=== PATIENT | female | born 1950 | race Caucasian/White ===

== ENCOUNTER 2018-12-12 11:00 | Inpatient (IN) | payer MEDICARE, OTHER ==
[~2018-12-12] VITALS: Ht 149.9 cm; Wt 66.9 kg
[2018-12-12 11:00] VITALS: BP 157/63
[~2018-12-12 11:00] MED LIST: ACET-2267 PO; ALBU5SOL6 NEB; ALEN70TA5 PO; ATOR10TA66 PO; BUDE10.2 INH; CALC-654 PO; CLON0.5T13 PO; HYDR-3820 PO; IPRA0.2S51 NEB; IPRA4AER INH; LISI-552 PO; LISI40TA PO; MAGNESIUM CITRATE 300 ML BTL PO NR; MELO15TA39 PO; MONT10TA24 PO; OMEP40CA36 PO; ONDA4TAB10 PO; TIZA4TAB3 PO; VENL150C98 PO
--- NOTE | 2018-12-12 11:00 | NUR ---
Admitted to room , with an admitting diagnosis of post kyphoplasty/impaired mobility , on 12-12-18 from [facility] , accompanied by .INOCENTE JOHNS introduced to surroundings, call light, bed controls, phone, TV, temperature control, lights, meal times, smoking policy, visitor policy, side rail policy, bathrooms and showers. Patient Rights given to patient in the handbook.INOCENTE JOHNS verbalizes understanding that [facility] is not responsible for the loss or damage to any personal effects or valuables that are kept in the patients posession during their hospitalization. The following Patient Care Plans were discussed with the pt: Discharge Planning, ,, alteration in comfort and skin integrity. INOCENTE JOHNS verbalizes understanding of Interdisciplinary Patient Education. Patient and/or family were informed about the Rapid Response Team and its purpose. Patient received Patient Rights Booklet, which includes Privacy Act Statement and Data Collection Information Summary.
[2018-12-12] MEDS ORDERED: BISACODYL 10 MG SUPP (DULCOLAX) PR PRN (11:45)
[2018-12-12] MEDS ORDERED: PROMETHAZINE 25 MG (PHENERGAN) TAB PO PRN (11:45)
[2018-12-12] MEDS ORDERED: HYDROmorphone 2 MG/ML VIAL (DILAUDID) IV PRN (11:45)
[2018-12-12] MEDS ORDERED: CATHETER FLUSH 10 ML SYR IV PRN (11:45)
[2018-12-12] MEDS ORDERED: ONDANSETRON 4 MG/2 ML (SDV) Z0FRAN IV PRN (11:45)
[2018-12-12] MEDS ORDERED: hydrALAZINE (APESOLINE) 20 MG/ML VIAL IV PRN (11:45)
[2018-12-12] MEDS ORDERED: ONDANSETRON 4 MG (ZOFRAN) ORAL DISSOLVE TAB PO PRN (11:45)
--- OUTSIDE RECORDS SUMMARY | 2018-12-12 11:52 | XMS REPORT | Continuity of Care Document ---
Author Organization Unknown Address Unknown Allergies Active Description Code Type Severity Reaction Onset Reported/Identified Relationship to Patient Clinical Status Yes adhesive tape ##NOMEN##,AL1,ceStruct,allergy,1237,[id number] Unknown N/A N/A Yes Latex ##NOMEN##,AL1,ceStruct,allergy,[id number] Unknown N/A N/A Medications There is no data. Problems There is no data. Procedures There is no data. Results There is no data. Encounters ACCT No. Visit Date/Time Discharge Status Pt. Type Provider Facility Loc./Unit Complaint [id number] 11/12/2018 15:04:40 11/12/2018 23:59:59 [facility] Outpatient [facility] Fel[facility] [id number] 01/13/2018 08:00:00 01/13/2018 23:59:59 [facility] Outpatient [facility] Feliz [facility] [id number] 11/12/2018 15:40:48 Document Registration
--- NOTE | 2018-12-12 13:19 | NUR ---
REVIEWED MED REC IT WAS REPORTED UPON ADMISSION TO ICU. NO CHANGES WERE MADE TO THE MED REC WHEN THE PATIENT DISCHARGED TO REHAB.
--- NOTE | 2018-12-12 14:25 | Occupational Therapy Eval ---
OT Evaluation-General/PLF Medical Diagnosis Admission Date Dec 12, 2018 at 11:00 Medical Diagnosis: T8 Compression Onset Date: Dec 04, 2018 Therapy Diagnosis Therapy Diagnosis: decreased self care skills Height/Weight Height (Feet): 4 Height (Inches): 11.00 Weight (Pounds): 162 Weight (Ounces): 7.0 Referral Physician: Vanna Medical History Pertinent Medical History: Arthritis, COPD, GERD, HTN, Smoking Additional Medical History Osteoporosis, anxiety Current History Pt s/p T8-9 laminectomy/partial corpectomy, T5-11 PSIF/T4 kyphoplasty. Reviewed History: Yes Social History Home: Single Level Current Living Status: Spouse Entry Into Home: Stairs With Railing Steps Into Home: 3 ADL-Prior Level of Function Therapy Code Descriptions/Definitions Functional Reed Measure: 0=Not Assessed/NA 4=Minimal Assistance 1=Total Assistance 5=Supervision or Setup 2=Maximal Assistance 6=Modified Reed 3=Moderate Assistance 7=Complete Reed Therapy Quality Codes: 6 Independent with activity with or without an assistive device 5 Patient requires set up or clean up by helper. Patient completes activity by themselves 4 Supervision or touching assist (CGA). Gary provide cues , steadying assist 3 The helper provides less than half the effort to complete the activity 2 The helper provides more than half the effort to complete the activity 1 Dependent. The helper does all the effort to complete an activity 7 Patient refused to complete or attempt activity 9 The patient did not perform the activity before the current illness or injury 88 Not attempted due to Medical conditions or safety concerns Functional Abilities and Goals: Independent: Patient completed the activities by him/herself, with or without an assistive device, with no assistance from a helper. Needed Some Help: Patient needed partial assistance from another person to complete activities. Dependent: A helper completed the activities for the patient. Unknown: Not Applicable: ADL PLOF Comments Pt states for the last few weeks prior to admission her family was assisting as needed. Was using cane and then walker for mobility. Family was doing the cooking and housework. Self Care: Needed Some Help DME/Equipment: Bath Chair DME/Equipment Comments Pt states they are having an walk in shower installed. Drive Self: No OT Current Status Subjective Pt in bed, agrees to therapy with encouragement. Pt reports 6/10 pain. Mental Status/Objective Patient Orientation: Person, Place, Situation Attachments: Drains, Cortés Catheter Current Glasses/Contacts: Yes Dentures/Partials: Yes (partials) Hand Dominance: Right Upper Extremity ROM Decreased right shoulder secondary to pain. Pt states she fell and hit her shoulder. Left UE grossly WFL Upper Extremity Coordination Intact Upper Extremity Strength Did not formally assess secondary to pain and recent back surgery. Generalized weakness. ADL-Treatment ADL-Current Pt participated in UE assessment while in bed. Pt states she is fatigued and doesn't know if she can do 3 hours of therapy. Education provided regarding role of OT and plan of care. States understanding. Pt completed grooming tasks while in bed. Pt brushed teeth, washed face, and combed hair with SBA and increased time. Pt requests to remain in bed at this time. Pt resting with needs met and family present after session. Eating (FIM): 5 (Set up by report) Eating (QC): 5 Grooming (FIM): 5 Oral Hygiene (QC): 4 Education OT Patient Education: Rehab process Teaching Recipient: Patient Teaching Methods: Discussion Response to Teaching: Verbalize Understanding OT Short Term Goals Short Term Goals Time Frame: Dec 26, 2018 Bathing(FIM): 4 Lower Body Dressing(FIM): 3 Toileting(FIM): 3 Toilet/Commode Transfer(FIM): 4 Additional Short Term Goals: 1-Demonstrate ADL Tasks, 2-Verbalize Understanding, 3-ImproveStrength/Re 1=Demonstrate adherence to instructed precautions during ADL tasks. 2=Patient will verbalize/demonstrate understanding of assistive devices/modifications for ADL. 3=Patient will improve strength/tolerance for activity to enable patient to perform ADL's. OT Mcfp Goals Mcfp Goals Time Frame: Jan 09, 2019 Eating (FIM): 6 Eating (QC): 6 Groomin Oral Hygiene (QC): 6 Bathing(FIM): 5 Shower/Bathe Self (QC): 5 Upper Body Dressing(FIM): 6 Upper Body Dressing (QC): 6 Lower Body Dressing(FIM): 5 Lower Body Dressing (QC): 5 On/Off Footwear (QC): 5 Toileting(FIM): 5 Toileting Hygiene (QC): 5 Toilet/Commode Transfer(FIM): 6 Toilet/Commode Transfer (QC): 6 Shower Transfer(FIM): 5 Additional Goals: 1-Demonstrate ADL Tasks, 2-Verbalize Understanding, 3-ImproveStrength/Re 1=Demonstrate adherence to instructed precautions during ADL tasks. 2=Patient will verbalize/demonstrate understanding of assistive devices/modifications for ADL. 3=Patient will improve strength/tolerance for activity to enable patient to perform ADL's. Pt to benefit from skilled OT intervention to increase functional independence and allow safe discharge home. OT Education/Plan Problem List/Assessment Assessment: Decreased Activ Tolerance, Decreased UE Strength, Dependent Transfers, Impaired I ADL's, Impaired Self-Care Skills Pt s/p spinal surgery with decreased mobility, strength, activity tolerance, and ADL functioning. Pt to benefit from skilled OT intervention for ADL training, transfers, strengthening, and home safety education to increase functional independence and allow safe discharge home. Discharge Recommendations Plan/Recommendations: Continue POC Treatment Plan/Plan of Care Treatment,Training & Education: Yes Patient would benefit from OT for education, treatment and training to promote independence in ADL's, mobility, safety and/or upper extremity function for ADL's. Plan of Care: ADL Retraining, Functional Mobility, Group Exercise/Act as Ind, UE Funct Exercise/Act Treatment Duration: Jan 09, 2019 Frequency: At least 5 of 7 days/Wk (IRF) Estimated Hrs Per Day: 1.5 hours per day Agreement: Yes Rehab Potential: Fair Time/GCodes Start Time: 11:05 Stop Time: 11:50 Total Time Billed (hr/min): 45 Billed Treatment Time 1 visit, EVM(30minutes), ADL(15minutes) DEBRA TORRES OT Dec 12, 2018 14:25
--- NOTE | 2018-12-12 14:25 | Physical Therapy Evaluation ---
PT Evaluation-General Medical Diagnosis Admission Date Dec 12, 2018 at 11:00 Medical Diagnosis: T-8 compression Onset Date: Dec 03, 2018 Therapy Diagnosis Therapy Diagnosis: impaired mobility, strength, endurance, balance, coordination Height/Weight Height (Feet): 4 Height (Inches): 11.00 Weight (Pounds): 162 Weight (Ounces): 7.0 Referral Physician: Ayla Prabhakar DO Reason for Referral: Evaluation/Treatment Medical History Pertinent Medical History: Arthritis, COPD, GERD, HTN, Smoking Additional Medical History failed kyphoplasty with spinal involvement Reviewed History: Yes Social History Home: Single Level Current Living Status: Spouse Entry Into Home: Stairs With Railing PT Steps Into Home: 3 Prior/Core FIM Prior Level of Function Therapy Code Descriptions/Definitions Functional [place] Measure: 0=Not Assessed/NA 4=Minimal Assistance 1=Total Assistance 5=Supervision or Setup 2=Maximal Assistance 6=Modified [place] 3=Moderate Assistance 7=Complete [place] Therapy Quality Codes: 6 Independent with activity with or without an assistive device 5 Patient requires set up or clean up by helper. Patient completes activity by themselves 4 Supervision or touching assist (CGA). [place] provide cues , steadying assist 3 The helper provides less than half the effort to complete the activity 2 The helper provides more than half the effort to complete the activity 1 Dependent. The helper does all the effort to complete an activity 7 Patient refused to complete or attempt activity 9 The patient did not perform the activity before the current illness or injury 88 Not attempted due to Medical conditions or safety concerns Functional Abilities and Goals: Independent: Patient completed the activities by him/herself, with or without an assistive device, with no assistance from a helper. Needed Some Help: Patient needed partial assistance from another person to complete activities. Dependent: A helper completed the activities for the patient. Unknown: Not Applicable: Bed Mobility: 5 Transfers (B,C,W/C) (FIM): 4 Gait: 1 Stairs: 1 Prior Devices Use: Walker PT Evaluation-Current Subjective Patient in bed pre tx, agrees to PT, has 5/10 pain in her back. Will be co- treating with OT after eval due to impaired strength, balance, LE poor coordination, coordination of UE and LE during movement, pain. Pt/Family Goals to be independent at home Objective Patient Orientation: Person, Place, Situation Attachments: Drains, Cortés Catheter back brace ROM/Strength ROM Lower Extremities WNL Strenght Lower Extremities 3+/5 gross bilateral lower extremities Integumentary/Posture Bladder Incontinence: Cortés Cath Neuromuscular (Tone, Coordination, Reflexes) decreased coordination in both legs observed during ambulation Sensory Vision: Wears Glasses Hearing: Functional Sensation Right Lower Extremit: Impaired Sensation Left Lower Extremity: Impaired Transfers Therapy Code Descriptions/Definitions Functional [place] Measure: 0=Not Assessed/NA 4=Minimal Assistance 1=Total Assistance 5=Supervision or Setup 2=Maximal Assistance 6=Modified [place] 3=Moderate Assistance 7=Complete [place] Therapy Quality Codes: 6 Independent with activity with or without an assistive device 5 Patient requires set up or clean up by helper. Patient completes activity by themselves 4 Supervision or touching assist (CGA). [place] provide cues , steadying assist 3 The helper provides less than half the effort to complete the activity 2 The helper provides more than half the effort to complete the activity 1 Dependent. The helper does all the effort to complete an activity 7 Patient refused to complete or attempt activity 9 The patient did not perform the activity before the current illness or injury 88 Not attempted due to Medical conditions or safety concerns Transfers (B, C, W/C) (FIM): 3 Scootin Rollin Roll Left to Right (QC): 3 Supine to/from Sit: 4 Sit to/from Stand: 3 bed t/f WC(FIM only if WC use): 2 Sit to Lying (QC): 3 Lying to Sitting/Side of Bed(Q: 3 Sit to Stand (QC): 2 Chair/Zcz-fh-Gyaxb Xfer(QC): 2 Car Transfer (QC): 2 Patient performs bed mobility with min assist, supine <-> sit with min assist, sit <-> stand with mod assist, transfers with mod assist, car transfers mod assist. Patient needs assist with balance during sit to stand and transfers, cues for hand placement and positioning. Gait Does the Patient Walk?: Yes Mode of Locomotion: Walk Anticipated Mode of Locomotion: Walk Gait (FIM): 1 Distance: 8'x2 Gait Level of Assist: 3 Gait Assistive Device: Parallel Bars Comments/Gait Description Patient ambulated 8' in the parallel bars and 8' from a recliner to the toilet using a rolling walker with mod assist. Her steps are uncoordinated and needs cues for taking slow, short steps. Stairs If not tested on admit;explain No stairs attempted at this time due to assist needed during ambulation and impaired balance and coordination. Balance Sitting Static: Normal Sitting Dynamic: Normal Standing Static: Poor Standing Dynamic: Poor Treatment Patient also bathed in recliner and got dressed and toileted. Assessment/Needs Patient has impaired mobility, strength, endurance, balance, coordination. She is a high fall risk. She has uncoordinated steps during ambulation. Rehab Potential: Fair PT Short Term Goals Short Term Goals Time Frame: Dec 19, 2018 Transfers (B,C,W/C) (FIM): 4 Gait (FIM): 1 Gait Distance Comment: 20' Gait Level of Assist: 4 Gait Assistive Device: FWW PT Penitentiary Goals Chief Environmental Commitment Officer Goals PT Chief Environmental Commitment Officer Goals Time Frame: Jan 02, 2019 Transfers (B,C,W/C) (FIM): 5 Sit to Lying (QC): 6 Lying-Sitting on Side/Bed(QC): 6 Sit to Stand (QC): 4 Rollin Roll Left to Right (QC): 6 Chair/[id number]-Jvxpq Xfer(QC): 4 Car Transfer (QC): 4 Gait (FIM): 5 Distance: 150' Walk 10 feet (QC): 4 Walk 10ft-Uneven Surface(QC): 4 Walk 50ft with 2 Turns (QC): 4 Walk 150 ft (QC): 4 Gait Level of Assist: 5 Gait Assistive Device: FWW Stairs (FIM): 2 # of Steps: 4 1 Step (curb) (QC): 4 4 Steps (QC): 4 Stairs Level Of Assist: 4 PT Plan Problem List Problem List: Activity Tolerance, Functional Strength, Safety, Balance, Gait, Transfer, Bed Mobility, ROM Treatment/Plan Treatment Plan: Continue Plan of Care Treatment Plan: Bed Mobility, Concurrent Therapy, Education, Functional Activity Re, Functional Strength, Group Therapy, Gait, Safety, Therapeutic Exercise, Transfers Treatment Duration: Jan 02, 2019 Frequency: At least 5 of 7 days/Wk (IRF) Estimated Hrs Per Day: 1.5 hours per day Patient and/or Family Agrees t: Yes Safety Risks/Education Patient Education: Gait Training, Transfer Techniques, Reviewed Precautions, Correct Positioning, Reviewed Don/Doff Brace, Safety Issues Teaching Recipient: Patient Teaching Methods: Demonstration, Discussion Response to Teaching: Reinforcement Needed Discharge Recommendations Plan Patient will perform bed mobility and transfer training, balance and endurance training, functional strengthening, stair training, gait training, and education, to improve functional mobility and independence at home. Therapy D/C Recommendations: Home w/ Family Support Time/GCodes Time In: 1300 Time Out: 1410 Total Billed Treatment Time: 70 Total Billed Treatment 1 visit EVM 15' FA 55' Co-treated with OT for 55' from 6314-3504. PT performed transfers, sit to stand, assist with trunk and balance during bathing and dressing and toileting. OT performed bathing, dressing, grooming, toileting and assisted with transfers. HAYES ARELLANO PT Dec 12, 2018 14:25
--- NOTE | 2018-12-12 15:01 | Occupational Ther Daily Note ---
OT Current Status-Daily Note Subjective Pt agreeable to treatment. 5/10 back pain. Mental Status/Objective Therapy Code Descriptions/Definitions Functional Tingley Measure: 0=Not Assessed/NA 4=Minimal Assistance 1=Total Assistance 5=Supervision or Setup 2=Maximal Assistance 6=Modified [place] 3=Moderate Assistance 7=Complete [place] Attachments: Drains, Cortés Catheter ADL-Treatment Co-treating with PT due to impaired strength, balance, coordination, activity tolerance and pain. Pt transferred to chair with mod assist. RN states sponge bath only at this time secondary to incision. Pt completed sponge bath seated in chair. Pt bathed upper body with SBA. Pt able to wash upper legs, but requires assist with buttock and lower legs/feet. Don pullover gown with minimal assistance. Assist to don back brace pt has in room (awaiting arrival of [facility]O). Pt requires assist to thread bilateral LE into underwear secondary to back precautions. Will need adaptive equipment education in future sessions. Mod assist for sit to stand for pant hike. Dependent for socks. Gait to restroom with FWW, slow pace and cues for safety. Transfer to toilet with mod assist. Pt returned to chair, sitting with needs met after session. Co-treat with PT. OT focusing on ADL completion, UE placement during mobility, and safety. PT focusing on balance, transfers, mobility, and safety. Therapy Code Descriptions/Definitions Functional [place] Measure: 0=Not Assessed/NA 4=Minimal Assistance 1=Total Assistance 5=Supervision or Setup 2=Maximal Assistance 6=Modified [place] 3=Moderate Assistance 7=Complete [place] Therapy Quality Codes: 6 Independent with activity with or without an assistive device 5 Patient requires set up or clean up by helper. Patient completes activity by themselves 4 Supervision or touching assist (CGA). [place] provide cues , steadying as sist 3 The helper provides less than half the effort to complete the activity 2 The helper provides more than half the effort to complete the activity 1 Dependent. The helper does all the effort to complete an activity 7 Patient refused to complete or attempt activity 9 The patient did not perform the activity before the current illness or injury 88 Not attempted due to Medical conditions or safety concerns Bathing (FIM): 3 Shower/Bathe Self (QC): 3 Upper Body (FIM): 5 Upper Body Dressing (QC): 4 Lower Body Dressing (FIM): 1 Lower Body Dressing (QC): 1 On/Off Footwear (QC): 1 Toileting (FIM): 2 Toileting Hygiene (QC): 2 Toilet/Commode Transfer (FIM): 3 Toilet Transfer (QC): 3 Shower Transfer(FIM): 0 Education OT Patient Education: Safety issues Teaching Recipient: Patient Teaching Methods: Discussion Response to Teaching: Verbalize Understanding, Reinforcement Needed OT Short Term Goals Short Term Goals Time Frame: Dec 26, 2018 Bathing(FIM): 4 Lower Body Dressing(FIM): 3 Toileting(FIM): 3 Transfers (B,C,W/C) (FIM): 4 Toilet/Commode Transfer(FIM): 4 Additional Short Term Goals: 1-Demonstrate ADL Tasks, 2-Verbalize Understanding, 3-ImproveStrength/Re 1=Demonstrate adherence to instructed precautions during ADL tasks. 2=Patient will verbalize/demonstrate understanding of assistive devices/modifications for ADL. 3=Patient will improve strength/tolerance for activity to enable patient to perform ADL's. OT Wire Mesh Knitter Goals Detention Goals Time Frame: Jan 09, 2019 Eating (FIM): 6 Eating (QC): 6 Groomin Oral Hygiene (QC): 6 Bathing(FIM): 5 Shower/Bathe Self (QC): 5 Upper Body Dressing(FIM): 6 Upper Body Dressing (QC): 6 Lower Body Dressing(FIM): 5 Lower Body Dressing (QC): 5 On/Off Footwear (QC): 5 Toileting(FIM): 5 Toileting Hygiene (QC): 5 Toilet/Commode Transfer(FIM): 6 Toilet/Commode Transfer (QC): 6 Shower Transfer(FIM): 5 Additional Goals: 1-Demonstrate ADL Tasks, 2-Verbalize Understanding, 3- ImproveStrength/Re 1=Demonstrate adherence to instructed precautions during ADL tasks. 2=Patient will verbalize/demonstrate understanding of assistive devices/m odifications for ADL. 3=Patient will improve strength/tolerance for activity to enable patient to perform ADL's. OT Education/Plan Discharge Recommendations Plan/Recommendations: Continue POC Treatment Plan/Plan of Care Patient would benefit from OT for education, treatment and training to promote independence in ADL's, mobility, safety and/or upper extremity function for ADL's. Plan of Care: ADL Retraining, Functional Mobility, Group Exercise/Act as Ind, UE Funct Exercise/Act Treatment Duration: Jan 09, 2019 Frequency: At least 5 of 7 days/Wk (IRF) Estimated Hrs Per Day: 1.5 hours per day Agreement: Yes Rehab Potential: Fair Time/GCodes Start Time: 13:15 Stop Time: 14:10 Total Time Billed (hr/min): 55 Billed Treatment Time 1 visit, ADLx4(55minutes) Co-treat with PT DEBRA TORRES OT Dec 12, 2018 15:01
--- NOTE | 2018-12-12 15:53 | Diagnostic Imaging Report ---
INDICATION: Constipation. TIME OF EXAM: 02:44 p.m. FINDINGS: Moderate gaseous distention of small and large bowel loops is noted. There is a large amount of stool in the right colon. Remainder of the colon is unremarkable. No bowel wall thickening is seen. There is no pneumatosis. Kyphoplasty changes in the upper lumbar spine are seen. There is spinal instrumentation in the thoracic spine. IMPRESSION: Large amount of stool in the right colon consistent with constipation. Dictated by: Dictated on workstation # [id number]
--- NOTE | 2018-12-12 15:58 | ST Cognitive Linguistic Eval ---
Speech Evaluation-General Medical Diagnosis T8 Compression Onset Date: Dec 03, 2018 Therapy Diagnosis Therapy Diagnosis: Cognitive-communication Precautions Precautions/Isolations: Fall Prevention Referral Referring Physician: Dr. Prabhakar Medical History Pertinent Medical History: Arthritis, COPD, GERD, HTN, Smoking Reviewed History: Yes Social History Current Living Status: Spouse Speech PLF-Current Status Prior Level of Function The patient lived at home with her and was independent for her daily needs. Subjective The patient was pleasant with the cognitive evaluation process. Language Eval: Auditory Comprehends Simple Yes/No Ques: Functional Indent/Objects Multiple Rojo: Functional Ident/Pics in Multiple Rojo: Functional Follows 1-Step Commands: Functional Follows Complex Directions: Mild Follows General Conversations: Functional Language Eval: Verbal Language Completes Spontaneous Greeting: Functional Produces Auto, Serial Info: Functional Imitates Simple Words/Phrases: Functional Word Finding: Functional Requests Basic Needs: Functional States Basic Personal Info: Functional Expresses Complex Ideas: Mild Objective Cognitive Domain Attention: WNL Memory: WNL Problem Solving: Functional Executive Functions: WNL Visuospatial Skills: WNL Composite Severity Rating: WNL Clock Drawing Severity Rating: Mild Objective Formal/Standardized Tests [facility] Mental Status ([facility]) Results The patient's results fall within the normal range at 28/30. She was able to recall her reason for being admitted and prior information. Oral Motor/Speech Production Within Functional Limits Impression The patient is a pleasant 68 year old female who was admitted to the ARU for medical monitoring and strengthening in order to return home safely. The patient completed the SLUMS within the normal range. She is not recommended for skilled ST at this time. Communication/Social Cognition Comprehension: 7 Expression: 7 Social Interaction: 7 Problem Solvin Memory: 7 Speech Patient Assess Expression of Ideas/Wants: Expression (4) Understanding Verbal Content: Understands (4) Brief Interview-Mental Status: Yes Repetition of Three Words: Three (3) Temporal Orientation: Year: Correct (3) Temporal Orientation: Month: Accurate within 5 days(2) Temporal Orientation: Day: Correct (1) Recall : Wear to say "Sock": Yes,after cueing (1) Recall : Color: Yes, after cueing (1) Recall : Bed: Yes, no cue required (2) Memory/Recall Ability: Current season, That he or she is in a hsp/hsp unit Speech-Plan Patient/Family Goals Patient/Family Goals: The patient plans on returning home where she lives with her post rehab. Treatment Plan Speech Therapy Treatment Plan: Discontinue ST The patient does not require skilled ST at this time. Treatment Duration: Dec 12, 2018 Frequency: 1 time per week Estimated Hrs Per Day: .25 hour per day Rehab Potential: Fair Barriers to Learning: None noted Pt/Family Agrees to Plan: Yes Safety Risks/Education Teaching Recipient: Patient Teaching Methods: Discussion Response to Teaching: Verbalize Understanding Education Topics Provided: Safety within her room Time Speech Therapy Time In: 15:30 Speech Therapy Time Out: 15:45 Total Billed Time: 15 Billed Treatment Time 1, SPSNDCOMP PORTIA Martinez Dec 12, 2018 15:58
--- NOTE | 2018-12-12 16:11 | NUR ---
During admission process, patient conveys that she has a history of depression and is currently feeling down due to back surgery and the need for rehab. Dr. Prabhakar is aware and Behavioral health consult has been ordered. Patient states that she has a strong support relationship with her and sister and they are able to discuss matters "down to the nitty gritty". Patient is made aware that Behavioral Health has been ordered. She states that she is accepting of the help, but is "doing fine" and "ok" if they are not able to get here for a few days. Patient is calm, open with communication.
[2018-12-12] MEDS: CALCIUM CARB + VIT D 600 MG (CALCARB + D) TAB PO SCH (16:59)
[2018-12-12] MEDS: AUGMENTIN 875 MG TAB (AMOXICILLIN/CLAVULANATE) PO SCH (17:00)
[2018-12-12] MEDS: oxyCODONE/APAP 5/325MG (PERCOCET 5) TABLET PO PRN (17:00)
[2018-12-12 17:15] VITALS: BP 171/80
--- NOTE | 2018-12-12 19:15 | NUR ---
bedside report received from JASON JIMENEZ, assume care of pt
[2018-12-12] MEDS: RT-ADVAIR HFA 115/21 MCG PER PUFF IH SCH (19:33)
--- NOTE | 2018-12-12 21:15 | NUR ---
assessments & interventions completed, see assessments & interventions, took all of laxatives, stated had small stool this evening, feels like will have one soon
[2018-12-12] MEDS: MONTELUKAST 10 MG (SINGULAIR) TAB PO SCH (21:37)
[2018-12-12] MEDS: DOCUSATE SODIUM 100 MG (COLACE) CAP PO SCH (21:37)
[2018-12-12] MEDS: SENNA W/DOCUSATE (SENOKOT S) TABLET PO SCH (21:38)
[2018-12-12] MEDS: POLYETHYLENE GLYCOL 17 GM (MIRALAX) PACK PO SCH (21:38)
[2018-12-12] MEDS: clonazePAM 0.5 MG (KlonoPIN) TAB PO SCH (21:41)
[2018-12-12] MEDS: LACTULOSE SYRUP 10GM/15ML (ENULOSE) 30ML UDC PO SCH (21:41)
[2018-12-12] MEDS: meTOprolol TARTRATE 25 MG (LOPRESSOR) TABLET PO SCH (21:41)
[2018-12-13] MEDS: oxyCODONE/APAP 5/325MG (PERCOCET 5) TABLET PO PRN ×5 (00:48→22:19)
--- NOTE | 2018-12-13 00:48 | NUR ---
c/o back pain level 10/10 on numeric scale, Percocet 5/325 2 tabs po given
--- NOTE | 2018-12-13 01:45 | NUR ---
resting quietly in bed, pain level 0/10 on flacc scale
--- NOTE | 2018-12-13 03:08 | NUR ---
c/o back pain level 6/10 on numeric scale, Dilaudid 0.5mg iv given
--- NOTE | 2018-12-13 03:30 | NUR ---
resting quietly in bed, pain level 0/10 on flacc scale
[2018-12-13 05:45] VITALS: BP 151/67
[2018-12-13 05:58] LABS: BASOPHILS % (AUTO) 0 % (0-10); EOSINOPHILS % (AUTO) 0 % (0-10); HEMATOCRIT 28 % (35-52); LYMPHOCYTES # (AUTO) 1.5 X 10^3 (1.0-4.0); LYMPHOCYTES % (AUTO) 15 % (12-44); MEAN CORPUSCULAR HEMOGLOBIN 31 PG (25-34); MEAN CORPUSCULAR HGB CONC 32 G/DL (32-36); MEAN CORPUSCULAR VOLUME 96 FL (80-99); MEAN PLATELET VOLUME 9.6 FL (7.4-10.4); MONOCYTES # (AUTO) 0.9 X 10^3 (0.0-1.0); MONOCYTES % (AUTO) 9 % (0-12); NEUTROPHILS # (AUTO) 7.9 X 10^3 (1.8-7.8); NEUTROPHILS % (AUTO) 76 % (42-75); PLATELET COUNT 174 10^3/uL (130-400); RED CELL DISTRIBUTION WIDTH 16.4 % (10.0-14.5); WHITE BLOOD COUNT 10.3 10^3/uL (4.3-11.0)
[2018-12-13 06:25] LABS: ALANINE AMINOTRANSFERASE 44 U/L (0-55); ALBUMIN 3.1 GM/DL (3.2-4.5); ALKALINE PHOSPHATASE 56 U/L (40-136); BILIRUBIN,TOTAL 0.6 MG/DL (0.1-1.0); BUN/CREATININE RATIO 22; CALCIUM 8.8 MG/DL (8.5-10.1); CARBON DIOXIDE 33 MMOL/L (21-32); CHLORIDE 99 MMOL/L (98-107); CREATININE SERUM 0.63 MG/DL (0.60-1.30); GFR ESTIMATED > 60; GLUCOSE 81 MG/DL (70-105); POTASSIUM 4.1 MMOL/L (3.6-5.0); SODIUM 140 MMOL/L (135-145); TOTAL PROTEIN 5.2 GM/DL (6.4-8.2)
[2018-12-13] MEDS: CALCIUM CARB + VIT D 600 MG (CALCARB + D) TAB PO SCH ×2 (06:54→17:12)
[2018-12-13] MEDS: AUGMENTIN 875 MG TAB (AMOXICILLIN/CLAVULANATE) PO SCH ×2 (06:55→17:13)
[2018-12-13] MEDS: VENlafaxine XR 75 MG (EFFEXOR XR) CAP PO SCH (06:55)
[2018-12-13] MEDS: predniSONE 20 MG TAB PO SCH (06:56)
[2018-12-13] MEDS: PANTOPRAZOLE 40 MG (PROTONIX) TAB PO SCH (06:56)
--- NOTE | 2018-12-13 06:59 | NUR ---
c/o back pain level 9/10 on numeric scale, Percocet 5/325 2 tabs po given
--- NOTE | 2018-12-13 07:10 | NUR ---
bedside report given to JASON JIMENEZ
[2018-12-13] MEDS: POLYETHYLENE GLYCOL 17 GM (MIRALAX) PACK PO SCH ×2 (08:58→21:39)
[2018-12-13] MEDS: DOCUSATE SODIUM 100 MG (COLACE) CAP PO SCH ×2 (09:00→21:37)
[2018-12-13] MEDS: LACTULOSE SYRUP 10GM/15ML (ENULOSE) 30ML UDC PO SCH ×2 (09:00→21:39)
[2018-12-13] MEDS: meTOprolol TARTRATE 25 MG (LOPRESSOR) TABLET PO SCH ×3 (09:01→21:37)
[2018-12-13] MEDS: SENNA W/DOCUSATE (SENOKOT S) TABLET PO SCH ×2 (09:01→21:39)
[2018-12-13] MEDS: MELOXICAM 7.5 MG (MOBIC) TABLET PO SCH (09:01)
[2018-12-13] MEDS: LORATADINE (CLARITIN) 10 MG TAB PO SCH (09:01)
[2018-12-13] MEDS: lisINopril 20 MG (PRINIVIL) TABLET PO SCH (09:01)
[2018-12-13] MEDS: ATORVASTATIN 10 MG (LIPITOR) TABLET PO SCH (09:30)
[2018-12-13] MEDS: RT-ADVAIR HFA 115/21 MCG PER PUFF IH SCH ×2 (09:53→19:07)
--- NOTE | 2018-12-13 10:03 | PM&R H&P / Post Admit Assess ---
History of Present Illness HPI/Chief Complaint CC: Spinal cord decompression HPI: From acute care hospital course: Hospital course: Patient had a lengthy hospital course for 9 days after she was admitted for exacerbation of COPD and pneumonia when she became hypoxic and wheezing unable to undergo spinal cord decompression from overfill of cement with kyphoplasty done a few weeks prior. She was transferred from [facility] and Dr. Hobson was consulted. Chest x-ray revealed infiltrate so IV antibiotics were empirically placed. Nebulizer treatments were started along with oxygen supplementation along with IV steroids. Patient was able to undergo spinal cord surgery on 12/09/[address] Goldstein and Dr. Noland. The surgery was a success. IV antibiotics were switched to oral antibiotics along with tapering of steroids and maintained on nebulizer treatments and oxygen supplementation. Severe postop constipation required multiple meds were still in process at time of transfer to inpatient rehabilitation. Patient doing much better today, small BM's after multiple meds and SSE and still working on that process. Pain is well controlled. Psych consult due to depression and h/o suicidal attempts. PLOF was independent for ambulation and ADL's. Will focus on improving strength and return bowel function to normal and monitor lungs for severe COPD. Source: patient Exam Limitations: no limitations Date Seen 12/13/18 Time Seen by a Provider: 10:00 Attending Physician Ayla Monroy DO PCP No,Local Physician Referring Physician Date of Admission Dec 12, 2018 at 11:00 Home Medications & Allergies Home Medications Reviewed patient Home Medication Reconciliation performed by pharmacy medication reconciliations electronics technician apprentice and/or nursing. Patients Allergies have been reviewed. Allergies Allergies Coded Allergies adhesive (Verified Allergy, Unknown, 12/04/18) naproxen (Verified Allergy, Unknown, 12/04/18) Past Szyvyli-Fiberc-Wbgykl Hx Past Med/Social Hx: Reviewed Nursing Past Med/Soc Hx, Reviewed and Corrections made Patient Social History Marrital Status: Employed/Student: retired Alcohol Use: Denies Use Recreational Drug Use: No Smoking Status: Current Everyday Smoker Physical Abuse Screen: No Sexual Abuse: No Recent Hopitalizations: No Immunizations Up To Date Pediatric: Yes Date of Pneumonia Vaccine: Mar 24, 2018 Seasonal Allergies Seasonal Allergies: Yes Past Medical History Surgeries: Orthopedic Respiratory: COPD, Emphysema, Pneumonia Currently Using CPAP: No Currently Using BIPAP: No Cardiac: Hypertension Neurological: Neuropathy : No Gastrointestinal: Gastroesophageal Reflux Musculoskeletal: Osteoporosis, Arthritis, Back Injury Are Your Blood Sugars Over 250: No Psychosocial: Anxiety, Depression Skin/Integumentary: Recent Skin Changes History of Blood Disorders: No Adverse Reaction to Blood Mcdonald: No Family History Cardiovascular disease 19 FATHER Myocardial infarction 19 FATHER Neoplasm 19 FATHER 19 MOTHER Review of Systems Constitutional: see HPI, weakness EENTM: no symptoms reported Respiratory: cough, dyspnea on exertion Cardiovascular: no symptoms reported Gastrointestinal: constipation Genitourinary: no symptoms reported Musculoskeletal: back pain Skin: no symptoms reported Psychiatric/Neurological: No Symptoms Reported All Other Systems Reviewed Negative Unless Noted: Yes Physical Exam Exam Vital Signs Vital Signs Date Time Temp Pulse Resp B/P (MAP) Pulse Ox O2 Delivery O2 Flow Rate FiO2 12/13/18 09:53 90 Room Air 12/13/18 05:45 98.9 82 20 151/67 (95) Capillary Refill : General Appearance: No Apparent Distress, WD/WN, Chronically ill HEENT: PERRL/EOMI, Normal ENT Inspection, Pharynx Normal, Moist Mucous Membranes Neck: Full Range of Motion, Normal Inspection, Non Tender, Supple Respiratory: Chest Non Tender, No Accessory Muscle Use, No Respiratory Distress, Decreased Breath Sounds, Wheezing Cardiovascular: Regular Rate, Rhythm, No Edema, No Gallop, No JVD, No Murmur Gastrointestinal: Normal Bowel Sounds, No Organomegaly, No Pulsatile Mass, Non Tender, Soft Back: Decreased Range of Motion, Muscle Spasm, Vertebral Tenderness Extremity: Normal Capillary Refill, Normal Inspection, Normal Range of Motion, Non Tender, No Calf Tenderness, No Pedal Edema Neurologic/Psychiatric: Alert, Oriented x3, No Motor/Sensory Deficits, Normal Mood/Affect, color dipper II-XII Norm as Tested, Motor Weakness (generalized weakness upper extremities, 3/5 lower legs) Skin: Normal Color, Warm/Dry Lymphatic: No Adenopathy Results Results/Procedures Labs Laboratory Tests 12/13/18 05:43 Patient resulted labs reviewed. Assessment/Plan Assessment and Plan Assess & Plan/Chief Complaint Assessment: Spinal cord decompression POD # 4 Kyphoplasty overfill causing spinal cord injury Severe COPD Smoker Depression w/h/o suicidal attempts HTN Post op constipation Plan: Monitor lungs and emotional status closely BM regimen Monitor BP Psych consult (1) Spinal cord compression (2) Osteoporosis (3) Anxiety (4) Respiratory insufficiency (5) Hypoxia (6) GERD (gastroesophageal reflux disease) (7) COPD exacerbation (8) Pneumonia involving right lung (9) Compression fracture of T8 vertebra (10) S/P kyphoplasty (11) Smoker Post Admission Physician Asses Date seen by provider: Dec 13, 2018 Time seen by provider: 10:00 Admisison Dx: (1) Spinal cord compression Status: Acute (2) Osteoporosis Status: Chronic (3) Anxiety Status: Chronic (4) Respiratory insufficiency Status: Acute (5) Hypoxia Status: Acute (6) GERD (gastroesophageal reflux disease) Status: Chronic (7) COPD exacerbation Status: Acute (8) Pneumonia involving right lung Status: Acute (9) Compression fracture of T8 vertebra Status: Chronic (10) S/P kyphoplasty Status: Chronic (11) Smoker Status: Chronic The preadmission screen agrees with the post admission assessment that the patient is a good candidate for inpatient rehabilitation. The patient will have a comprehensive program of inpatient rehabilitation with a goal of maximizing level of functional independence prior to discharge home with family. The patient will have PT/OT ninety minutes per day, each discipline, five days a week for gait, strengthening, conditioning, balance, ADLs, any patient/family/caregiver training as necessary. Speech therapy to do cognitive assessment and treat as indicated. Rehabilitation nursing to assist with bowel, bladder, skin, wound care, medication administration, pain management. Social S ervices to assist with discharge planning, community reentry. SCD's for DVT prophylaxis. She appears to be well motivated to participate in three hours of therapy a day. She should be able to tolerate three hours of therapy a day from a medical standpoint. She should benefit from the three hours of therapy a day. She has a reasonable discharge plan, reasonable discharge rehabilitation goals and a supportive family. She has various comorbidities that need to be closely monitored with medications and treatments adjusted on a daily basis as needed. These include: see list Barriers to discharge for this patient who had been independent prior to this are for her to be modified independent to supervision for ADLs and mobility skills prior to discharge home with family, so as to lessen the burden of the caregivers. Risks for this patient include: 1. Fall 2. Fracture 3. DVT 4. Pulmonary embolism 5. Wound infection 6. Skin breakdown 7. Contractures 8. Poorly controlled pain 9. Urinary retention 10. UTI 11. Respiratory infection 12. Aspiration Estimated Length of Stay: 14 days Prognosis: Rehab prognosis appears good for goal of discharge home with family modified independent to supervision for ADLs and mobility skills. AYLA MONROY DO Dec 13, 2018 10:03
--- NOTE | 2018-12-13 11:21 | Physical Therapy Daily Note ---
PT Daily Note-Current Subjective Pt declining to get out of bed at this time. States she has been up and down already this morning, pain increases to too much when up moving around, and is so full of fluid. Agreeable to work on bed mobility and exercises for PT session Pain Numeric Pain Scale: 5-Moderate Pain Location Body Site: Back Comment: incisional pain, increases to 8/10 with movement Appearance Pt supine in bed at beginning and end of tx session, call light, phone and bedside table within reach Mental Status Patient Orientation: Person, Place, Time, Eyes Open Attachments: Drains, Cortés Catheter Transfers Therapy Code Descriptions/Definitions Functional [place] Measure: 0=Not Assessed/NA 4=Minimal Assistance 1=Total Assistance 5=Supervision or Setup 2=Maximal Assistance 6=Modified [place] 3=Moderate Assistance 7=Complete [place] Therapy Quality Codes: 6 Independent with activity with or without an assistive device 5 Patient requires set up or clean up by helper. Patient completes activity by themselves 4 Supervision or touching assist (CGA). [place] provide cues , steadying assist 3 The helper provides less than half the effort to complete the activity 2 The helper provides more than half the effort to complete the activity 1 Dependent. The helper does all the effort to complete an activity 7 Patient refused to complete or attempt activity 9 The patient did not perform the activity before the current illness or injury 88 Not attempted due to Medical conditions or safety concerns Exercises Supine Ex: Bridging, Ankle pumps ((+) toe curls), Quad Set, Rolling, Glut sets, Heel Slides, Short Arc Quads, Scooting, Straight leg raise, Hip abd/add Supine Reps: 20 weakness RLE>LLE Treatments bed mobility, strengthening Assessment Pt requiring encouragement to participate. RLE weakness > LLE PT Short Term Goals Short Term Goals Time Frame: Dec 19, 2018 Transfers (B,C,W/C) (FIM): 4 Gait (FIM): 1 Gait Distance Comment: 20' Gait Level of Assist: 4 Gait Assistive Device: FWW PT Furnace Charging Machine Operator Goals Furnace Charging Machine Operator Goals PT Furnace Charging Machine Operator Goals Time Frame: Jan 02, 2019 Transfers (B,C,W/C) (FIM): 5 Sit to Lying (QC): 6 Lying-Sitting on Side/Bed(QC): 6 Sit to Stand (QC): 4 Rollin Roll Left to Right (QC): 6 Chair/Rnd-za-Cjtvi Xfer(QC): 4 Car Transfer (QC): 4 Gait (FIM): 5 Distance: 150' Walk 10 feet (QC): 4 Walk 10ft-Uneven Surface(QC): 4 Walk 50ft with 2 Turns (QC): 4 Walk 150 ft (QC): 4 Gait Level of Assist: 5 Gait Assistive Device: FWW Stairs (FIM): 2 # of Steps: 4 1 Step (curb) (QC): 4 4 Steps (QC): 4 Stairs Level Of Assist: 4 PT Plan Treatment/Plan Treatment Plan: Continue Plan of Care Treatment Plan: Bed Mobility, Concurrent Therapy, Education, Functional Activity Re, Functional Strength, Group Therapy, Gait, Safety, Therapeutic Exercise, Transfers Treatment Duration: Jan 02, 2019 Frequency: At least 5 of 7 days/Wk (IRF) Estimated Hrs Per Day: 1.5 hours per day Patient and/or Family Agrees t: Yes Time/GCodes Time In: 955 Time Out: 1010 Total Billed Treatment Time: 15 Total Billed Treatment 1 visit, EX x 1 unit MADISON CARVAJAL PERFORMANCE INSTRUCTOR Dec 13, 2018 11:21
[2018-12-13 16:04] VITALS: BP 119/68
--- NOTE | 2018-12-13 19:10 | NUR ---
bedside report received from JASON JIMENEZ, assume care of pt
--- NOTE | 2018-12-13 21:00 | NUR ---
assessments & interventions completed, see assessments & interventions
[2018-12-13 21:33] VITALS: BP 151/77
[2018-12-13] MEDS: MONTELUKAST 10 MG (SINGULAIR) TAB PO SCH (21:37)
[2018-12-13] MEDS: clonazePAM 0.5 MG (KlonoPIN) TAB PO SCH (21:37)
--- NOTE | 2018-12-13 21:37 | NUR ---
pt refused Enulose, miralax & Senokot states i had several stools today
[2018-12-13] MEDS: RT-ALBUTEROL/IPRATROPIUM 3 ML (DUONEB) VIAL IH PRN (22:12)
--- NOTE | 2018-12-13 22:19 | NUR ---
c/o back pain level 9/10 on numeric scale, Percocet 5/325 2 tabs po given
--- NOTE | 2018-12-13 23:00 | NUR ---
resting quietly in bed, pain level 0/10 on flacc scale
[2018-12-14] MEDS: oxyCODONE/APAP 5/325MG (PERCOCET 5) TABLET PO PRN ×4 (03:17→21:13)
--- NOTE | 2018-12-14 03:17 | NUR ---
c/o back pain level 8/10 on numeric scale, Percocet 5/325 2 tabs given
--- NOTE | 2018-12-14 03:45 | NUR ---
resting quietly in bed, pain level 0/10 on flacc scale
[2018-12-14 05:47] VITALS: BP 116/69
[2018-12-14] MEDS: CALCIUM CARB + VIT D 600 MG (CALCARB + D) TAB PO SCH ×2 (06:44→16:09)
[2018-12-14] MEDS: PANTOPRAZOLE 40 MG (PROTONIX) TAB PO SCH (06:45)
[2018-12-14] MEDS: VENlafaxine XR 75 MG (EFFEXOR XR) CAP PO SCH (06:46)
[2018-12-14] MEDS: predniSONE 20 MG TAB PO SCH (06:47)
[2018-12-14] MEDS: AUGMENTIN 875 MG TAB (AMOXICILLIN/CLAVULANATE) PO SCH ×2 (06:47→16:09)
--- NOTE | 2018-12-14 07:14 | NUR ---
bedside report given to SID JIMENEZ
[2018-12-14] MEDS: DOCUSATE SODIUM 100 MG (COLACE) CAP PO SCH ×2 (08:25→21:00)
[2018-12-14] MEDS: MELOXICAM 7.5 MG (MOBIC) TABLET PO SCH (08:25)
[2018-12-14] MEDS: ATORVASTATIN 10 MG (LIPITOR) TABLET PO SCH (08:25)
[2018-12-14] MEDS: LORATADINE (CLARITIN) 10 MG TAB PO SCH (08:25)
[2018-12-14] MEDS: lisINopril 20 MG (PRINIVIL) TABLET PO SCH (08:27)
[2018-12-14] MEDS: LACTULOSE SYRUP 10GM/15ML (ENULOSE) 30ML UDC PO SCH ×2 (08:27→21:00)
[2018-12-14] MEDS: meTOprolol TARTRATE 25 MG (LOPRESSOR) TABLET PO SCH ×2 (08:27→21:12)
[2018-12-14] MEDS: SENNA W/DOCUSATE (SENOKOT S) TABLET PO SCH ×2 (08:28→21:00)
[2018-12-14] MEDS: POLYETHYLENE GLYCOL 17 GM (MIRALAX) PACK PO SCH ×2 (08:28→21:00)
[2018-12-14] MEDS: RT-ADVAIR HFA 115/21 MCG PER PUFF IH SCH ×2 (08:29→20:06)
--- NOTE | 2018-12-14 10:44 | PM&R Progress Note ---
Subjective HPI/CC On Admission Date Seen by Provider: Dec 14, 2018 Time Seen by Provider: 10:45 CC: Spinal cord decompression HPI: From acute care hospital course: Hospital course: Patient had a lengthy hospital course for 9 days after she was admitted for exacerbation of COPD and pneumonia when she became hypoxic and wheezing unable to undergo spinal cord decompression from overfill of cement with kyphoplasty done a few weeks prior. She was transferred from [facility] and Dr. Hobson was consulted. Chest x-ray revealed infiltrate so IV antibiotics were empirically placed. Nebulizer treatments were started along with oxygen supplementation along with IV steroids. Patient was able to undergo spinal cord surgery on 12/09/[address] Goldstein and Dr. Noland. The surgery was a success. IV antibiotics were s witched to oral antibiotics along with tapering of steroids and maintained on nebulizer treatments and oxygen supplementation. Severe postop constipation required multiple meds were still in process at time of transfer to inpatient rehabilitation. Patient doing much better today, small BM's after multiple meds and SSE and still working on that process. Pain is well controlled. Psych consult due to depression and h/o suicidal attempts. PLOF was independent for ambulation and ADL's. Will focus on improving strength and return bowel function to normal and monitor lungs for severe COPD. Subjective/Events-last exam Now having bowel movements after multiple meds Colace and lactulose will be maintained twice daily Having trapezius pain so will initiate Biofreeze Overall attitude and situational grief over partial paralysis is much improved Checked meds and labs Overall very optimistic Participating in all therapies Using walker and doing well Lungs are clear today Completing antibiotics and steroids Review of Systems Musculoskeletal: back pain Objective Exam Vital Signs Vital Signs Date Time Temp Pulse Resp B/P (MAP) Pulse Ox O2 Delivery O2 Flow Rate FiO2 12/14/18 09:00 Room Air 12/14/18 08:29 90 12/14/18 05:47 98.0 81 20 116/69 (85) Capillary Refill : General Appearance: No Apparent Distress, WD/WN, Chronically ill HEENT: PERRL/EOMI, Normal ENT Inspection, Pharynx Normal, Moist Mucous Membranes Neck: Full Range of Motion, Normal Inspection, Non Tender, Supple Respiratory: Chest Non Tender, No Accessory Muscle Use, No Respiratory Distress, Decreased Breath Sounds, Wheezing Cardiovascular: Regular Rate, Rhythm, No Edema, No Gallop, No JVD, No Murmur Gastrointestinal: Normal Bowel Sounds, No Organomegaly, No Pulsatile Mass, Non Tender, Soft Back: Decreased Range of Motion, Muscle Spasm, Vertebral Tenderness Extremity: Normal Capillary Refill, Normal Inspection, Normal Range of Motion, Non Tender, No Calf Tenderness, No Pedal Edema Neurologic/Psychiatric: Alert, Oriented x3, No Motor/Sensory Deficits, Normal Mood/Affect, supervisor inspection and testing II-XII Norm as Tested, Motor Weakness (generalized weakness upper extremities, 3/5 lower legs) Skin: Normal Color, Warm/Dry Lymphatic: No Adenopathy Results/Procedures Lab Patient resulted labs reviewed. FIM Transfers Therapy Code Descriptions/Definitions Functional [place] Measure: 0=Not Assessed/NA 4=Minimal Assistance 1=Total Assistance 5=Supervision or Setup 2=Maximal Assistance 6=Modified [place] 3=Moderate Assistance 7=Complete [place] Therapy Quality Codes: 6 Independent with activity with or without an assistive device 5 Patient requires set up or clean up by helper. Patient completes activity by themselves 4 Supervision or touching assist (CGA). [place] provide cues , steadying assist 3 The helper provides less than half the effort to complete the activity 2 The helper provides more than half the effort to complete the activity 1 Dependent. The helper does all the effort to complete an activity 7 Patient refused to complete or attempt activity 9 The patient did not perform the activity before the current illness or injury 88 Not attempted due to Medical conditions or safety concerns Transfers (B, C, W/C) (FIM): 3 Scootin Rollin Roll Left to Right (QC): 3 Supine to/from Sit: 4 Sit to/from Stand: 3 Sit to Lying (QC): 3 Sit to Stand (QC): 2 Chair/Kcd-yd-Aznlk Xfer(QC): 2 Bed to/from Chair: 2 Car Transfer (QC): 2 Gait Training Does the Patient Walk?: Yes Gait (FIM): 1 Gait Level of Assist: 3 Gait Assistive Device: Parallel Bars Mental Status/Objective Comprehension: 7 Expression: 7 Social Interaction: 7 Problem Solvin Memory: 7 ADL-Treatment Feedin (Set up by report) Eating (QC): 5 Groomin Oral Hygiene (QC): 4 Bathin Shower/Bathe Self (QC): 3 Upper Extremity Dressin Upper Body Dressing (QC): 4 Lower Extremity Dressin Lower Body Dressing (QC): 1 On/Off Footwear (QC): 1 Toiletin Toileting Hygiene (QC): 2 Toilet/Commode Transfer: 3 Toilet Transfer (QC): 3 Shower: 0 Assessment/Plan Assessment and Plan Assess & Plan/Chief Complaint Assessment: Spinal cord decompression POD # 5 Kyphoplasty overfill causing spinal cord injury Severe COPD Smoker Depression w/h/o suicidal attempts HTN Post op constipation Plan: Monitor lungs and emotional status closely BM regimen Monitor BP Psych consult Complete abx and steroids and lungs are clear today 12/14/18 (1) Spinal cord compression (2) Osteoporosis (3) Anxiety (4) Respiratory insufficiency (5) Hypoxia (6) GERD (gastroesophageal reflux disease) (7) COPD exacerbation (8) Pneumonia involving right lung (9) Compression fracture of T8 vertebra (10) S/P kyphoplasty (11) Smoker ALEYDA MONROY DO Dec 14, 2018 10:44
--- NOTE | 2018-12-14 10:45 | Individualized Plan of Care ---
Individualized Plan of Care Rehab Nursing IPOC Order Admission Date Dec 12, 2018 at 11:00 Current Orders Orders Admission Order(Inpt,Obs,Sdc) (12/12/18 10:53) Vital Signs: Per Unit Policy ( 08,16,00 (12/12/18 10:53) Ultrasound Technologist-Inpt Rehab Con (12/12/18 10:53) Rehab Nursing Orders-Ipoc (12/12/18 10:53) Physical Therapy Rehab Orders (12/12/18 10:53) Occupational Therapy Rehab Ord (12/12/18 10:53) Speech Therapy Rehab Orders (12/12/18 10:53) Intake & Output 06,14,22 (12/12/18 10:53) Precautions (Aru) (12/12/18 10:53) Weekly Weight (Lbs) WEEK (12/12/18 10:53) Rehab-Intensity Of Therapy (12/12/18 10:53) Code/Resuscitation (12/12/18 10:53) Initiate Admission Nursing Pro .admission (12/12/18 10:53) Soap Suds Enema Until Clear (12/12/18 10:53) Code/Resuscitation (12/12/18 11:41) Initiate Admission Nursing Pro .admission (12/12/18 11:41) General/Regular (12/12/18 Dinner) Acetaminophen Tablet (Tylenol Tablet) (12/12/18 11:45) Albuterol/Ipra Inhalation Soln (Duoneb I (12/12/18 11:45) Amoxicillin/Clavulanate Tablet (Augmenti (12/12/18 17:00) Atorvastatin Tablet (Lipitor Tablet) (12/13/18 09:00) Bisacodyl Suppository (Dulcolax Supposit (12/12/18 11:45) Calcium Carbonate W/Vitamin D3 (Calcarb (12/12/18 17:00) Docusate Sodium Capsule (Colace Capsule) (12/12/18 21:00) Fluticasone/Salmeterol Common (Advair 11 (12/12/18 20:00) Hydromorphone Injection (Dilaudid Inject (12/12/18 11:45) Lactulose Oral Solution (Enulose Oral So (12/12/18 21:00) Loratadine Tablet (Claritin Tablet) (12/13/18 09:00) Meloxicam Tablet (Mobic Tablet) (12/13/18 09:00) Montelukast Tablet (Singulair Tablet) (12/12/18 21:00) Ondansetron Oral Dissolve Tab (Zofran (12/12/18 11:45) Pantoprazole Tablet (Protonix Tablet) (12/13/18 07:00) Oxycodone/Apap 5/325mg Tablet (Percocet (12/12/18 11:45) Promethazine Tablet (Phenergan Tablet) (12/12/18 11:45) Polyethylene Glycol Powder Pkt (Miralax (12/12/18 21:00) Senna S Tablet (Senokot S Tablet) (12/12/18 21:00) Sodium Chloride Flush (Catheter Flush Sy (12/12/18 11:45) Venlafaxine Xr Capsule (Effexor Xr Capsu (12/13/18 07:00) Ondansetron Injection (Zofran Injectio (12/12/18 11:45) Clonazepam Tablet (Klonopin Tablet) (12/12/18 21:00) Hydralazine Injection (Apresoline Inject (12/12/18 11:45) Lisinopril Tablet (Zestril Tablet) (12/13/18 09:00) Metoprolol Tartrate (Ir) Tab (Lopressor (12/12/18 21:00) Prednisone Tablet (Deltasone Tablet) (12/13/18 07:00) Incentive Spirometry Initial (12/12/18 11:41) Oxygen Delivery Set Up (12/12/18 11:41) Svn Small Volume Nebulizer (12/12/18 11:41) Mdi Treatment (12/12/18 11:41) Incentive Spirometry (Nursing) Q2H (12/12/18 11:41) Cbc With Automated Diff (12/13/18 06:00) Comprehensive Metabolic Panel (12/13/18 06:00) Catheter(Urinary) Discontinue (12/12/18 11:41) Abdomen/Kub 1[place] (12/12/18 11:41) Magnesium Citrate Oral Soln (Citrate Of (12/12/18 10:30) Patient Visit (12/12/18 ) Pt Eval Moderate Complexity (12/12/18 ) Functional Activities, Ea 15 (12/12/18 ) Patient Visit (12/12/18 ) Speech Sound Lang Comp (12/12/18 ) Patient Visit (12/13/18 ) Exercise Therap, Ea 15 Min (12/13/18 ) Behavorial Health Consult (12/13/18 11:07) Rehab Nursing Orders: Ongoing Assess. of Cognitive Status, Ongoing Assess. of Function Status, Bladder Management, Bladder Scan, Bladder Training, Bowel Management, Bowel Training, Disease Management & Educaiton, DVT Prophylaxis, Fall Prevention, Fluid/Electrolyte/Nutrition Mgmt, Infection Prevention, Medication Management & Education, Management of Risks & Complications, Management of Skin Intergrity, Nutrition Management, Pain Management, Patient /Family Support, Safety Management, Swallow Precautions Intensity of Therapy to be met Patient to be seen: Min.3h per day/5 of 7d PT IPOC Problem List: Activity Tolerance, Functional Strength, Safety, Balance, Gait, Transfer, Bed Mobility, ROM Treatment Plan: Continue Plan of Care Bed Mobility, Concurrent Therapy, Education, Functional Activity Re, Functional Strength, Group Therapy, Gait, Safety, Therapeutic Exercise, Transfers Treatment Duration: Jan 02, 2019 Frequency: At least 5 of 7 days/Wk (IRF) Estimated Hrs Per Day: 1.5 hours per day OT IPOC Problems: Decreased Activ Tolerance, Decreased UE Strength, Dependent Transfers, Impaired I ADL's, Impaired Self-Care Skills OT Treatment, Training and Edu: Yes Plan of Care: ADL Retraining, Functional Mobility, Group Exercise/Act as Ind, UE Funct Exercise/Act Treatment Duration: Jan 09, 2019 Frequency: At least 5 of 7 days/Wk (IRF) Estimated Hrs Per Day: 1.[address] IPOC Speech Therapy Treatment Plan: Discontinue ST Treatment Duration: Dec 12, 2018 Frequency: 1 time per week Estimated Hrs Per Day: .25 hour per day Ultrasound Technologist/Case Mgmt Ultrasound Technologist/Case Managemen: Discharge Planning Dietitian/Lint Cleaner Dietitian/Lint Cleaner to monitor nutritional status and make changes and/or recommendations as needed and work with speech pathology on dietary upgrades as the occur. Neuropsychology/Psychology Depression, anxiety, new debility Physician IPOC Medical Issues being managed closely and that require the 24 hour availability of a physician: Severe COPD and recent pneumonia with exacerbation of COPD will require close monitoring for respiratory insufficiency Medical Issues: Bowel/Bladder Function, DVT Prophylaxis, Falls Precautions, Fluid/Electrolyte/Nutrition Balance, Infection Protection, Pain Management Brief Synthesis of Preadmission Screen, Post-Admission Evaluation, and Therapy Evaluations: PT will focus on ambulation and decrease dependency after extensive back surgery OT will focus on increased independence in order to return home Medical Prognosis: Good Anticipated Length of Stay: 14 days ALEYDA MONROY DO Dec 14, 2018 10:44
[2018-12-14 16:04] VITALS: BP 162/75
[2018-12-14] MEDS: DICLOFENAC 1% GEL 100 GM (VOLTAREN) TUBE TOP PRN ×2 (16:10→21:15)
--- NOTE | 2018-12-14 18:30 | NUR ---
FLORES Hydralazine given for SBP greater than 160. Addendum: 12/18/18 at 0724 by SID FLORES RN Wrong patient.
--- NOTE | 2018-12-14 19:08 | NUR ---
bedside report received from SID JIMENEZ, assume care of pt
[2018-12-14] MEDS: RT-ALBUTEROL/IPRATROPIUM 3 ML (DUONEB) VIAL IH PRN (20:06)
[2018-12-14 21:09] VITALS: BP 149/75
--- NOTE | 2018-12-14 21:10 | NUR ---
b/p 149/75
[2018-12-14] MEDS: MONTELUKAST 10 MG (SINGULAIR) TAB PO SCH (21:12)
[2018-12-14] MEDS: clonazePAM 0.5 MG (KlonoPIN) TAB PO SCH (21:12)
--- NOTE | 2018-12-14 21:15 | NUR ---
assessments & interventions completed, see assessments & interventions, pt refused Enulose, Colace, miralax & Senokot, stating had several stools today, c/o back pain level 8/10 on numeric scale, Percocet 5/325 2 tabs po given
--- NOTE | 2018-12-14 22:45 | NUR ---
resting quietly in bed, pain level 0/10 on flacc scale
[2018-12-15] MEDS: oxyCODONE/APAP 5/325MG (PERCOCET 5) TABLET PO PRN ×4 (02:31→22:03)
--- NOTE | 2018-12-15 02:31 | NUR ---
c/o back pain level 9/10 on numeric scale, Percocet 5/325 2 tabs po given
--- NOTE | 2018-12-15 03:16 | NUR ---
resting quietly in bed, pain level 0/10 on flacc scale
[2018-12-15 05:51] VITALS: BP 146/81
[2018-12-15] MEDS: CALCIUM CARB + VIT D 600 MG (CALCARB + D) TAB PO SCH ×2 (06:42→17:21)
[2018-12-15] MEDS: PANTOPRAZOLE 40 MG (PROTONIX) TAB PO SCH (06:43)
[2018-12-15] MEDS: AUGMENTIN 875 MG TAB (AMOXICILLIN/CLAVULANATE) PO SCH (06:43)
[2018-12-15] MEDS: VENlafaxine XR 75 MG (EFFEXOR XR) CAP PO SCH (06:43)
[2018-12-15] MEDS: predniSONE 20 MG TAB PO SCH (06:43)
--- NOTE | 2018-12-15 06:48 | NUR ---
c/o back pain level 10/10 on numeric scale, Percocet 5/325 2 tabs po given
[2018-12-15] MEDS: RT-ADVAIR HFA 115/21 MCG PER PUFF IH SCH ×2 (07:07→21:59)
--- NOTE | 2018-12-15 07:10 | NUR ---
bedside report given to JASON JIMENEZ
[2018-12-15 08:51] VITALS: BP 141/67
[2018-12-15] MEDS: lisINopril 20 MG (PRINIVIL) TABLET PO SCH (08:52)
[2018-12-15] MEDS: MELOXICAM 7.5 MG (MOBIC) TABLET PO SCH (08:52)
[2018-12-15] MEDS: ATORVASTATIN 10 MG (LIPITOR) TABLET PO SCH (08:52)
[2018-12-15] MEDS: LORATADINE (CLARITIN) 10 MG TAB PO SCH (08:52)
[2018-12-15] MEDS: SENNA W/DOCUSATE (SENOKOT S) TABLET PO SCH ×2 (08:52→20:32)
[2018-12-15] MEDS: meTOprolol TARTRATE 25 MG (LOPRESSOR) TABLET PO SCH ×2 (08:52→20:32)
[2018-12-15] MEDS: LACTULOSE SYRUP 10GM/15ML (ENULOSE) 30ML UDC PO SCH (09:00)
[2018-12-15] MEDS: DOCUSATE SODIUM 100 MG (COLACE) CAP PO SCH (09:00)
[2018-12-15] MEDS: POLYETHYLENE GLYCOL 17 GM (MIRALAX) PACK PO SCH (09:00)
--- NOTE | 2018-12-15 09:14 | PM&R Progress Note ---
Subjective HPI/CC On Admission Date Seen by Provider: Dec 15, 2018 Time Seen by Provider: 09:15 CC: Spinal cord decompression HPI: From acute care hospital course: Hospital course: Patient had a lengthy hospital course for 9 days after she was admitted for exacerbation of COPD and pneumonia when she became hypoxic and wheezing unable to undergo spinal cord decompression from overfill of cement with kyphoplasty done a few weeks prior. She was transferred from [facility] and Dr. Hobson was consulted. Chest x-ray revealed infiltrate so IV antibiotics were empirically placed. Nebulizer treatments were started along with oxygen supplementation along with IV steroids. Patient was able to undergo spinal cord surgery on 12/09/[address] Goldstein and Dr. Noland. The surgery was a success. IV antibiotics were s witched to oral antibiotics along with tapering of steroids and maintained on nebulizer treatments and oxygen supplementation. Severe postop constipation required multiple meds were still in process at time of transfer to inpatient rehabilitation. Patient doing much better today, small BM's after multiple meds and SSE and still working on that process. Pain is well controlled. Psych consult due to depression and h/o suicidal attempts. PLOF was independent for ambulation and ADL's. Will focus on improving strength and return bowel function to normal and monitor lungs for severe COPD. Subjective/Events-last exam She is very concerned because her has been in the ER X2 due to high sugars. BM X4 yesterday so we will change all bowel regimen laxatives to prn except for Senna once a day. Overall pain is well controlled at this current time. Lungs remain clear and finishing the antibiotic and steroid regimen. Nebulizer treatments to remain. Eating and drinking well. Overall walking very well with a walker and seems to have dramatic improvement since last week. Drain is still draining so will reach out to Dr. Goldstein regarding discontinuation of that. Conferred with RN Reviewed therapy notes Review of Systems General: Fatigue Pulmonary: Dyspnea Musculoskeletal: back pain Objective Exam Vital Signs Vital Signs Date Time Temp Pulse Resp B/P (MAP) Pulse Ox O2 Delivery O2 Flow Rate FiO2 12/15/18 17:23 97.5 79 16 139/74 (95) 92 Room Air Capillary Refill : General Appearance: No Apparent Distress, WD/WN, Chronically ill HEENT: PERRL/EOMI, Normal ENT Inspection, Pharynx Normal, Moist Mucous Membranes Neck: Full Range of Motion, Normal Inspection, Non Tender, Supple Respiratory: Chest Non Tender, Lungs Clear, Normal Breath Sounds, No Accessory Muscle Use, No Respiratory Distress Cardiovascular: Regular Rate, Rhythm, No Edema, No Gallop, No JVD, No Murmur Gastrointestinal: Normal Bowel Sounds, No Organomegaly, No Pulsatile Mass, Non Tender, Soft Back: Decreased Range of Motion, Muscle Spasm, Vertebral Tenderness Extremity: Normal Capillary Refill, Normal Inspection, Normal Range of Motion, Non Tender, No Calf Tenderness, No Pedal Edema Neurologic/Psychiatric: Alert, Oriented x3, No Motor/Sensory Deficits, Normal Mood/Affect, mold puller II-XII Norm as Tested, Motor Weakness (generalized weakness up per extremities, 3/5 lower legs) Skin: Normal Color, Warm/Dry Lymphatic: No Adenopathy Results/Procedures Lab Patient resulted labs reviewed. FIM Transfers Therapy Code Descriptions/Definitions Functional [place] Measure: 0=Not Assessed/NA 4=Minimal Assistance 1=Total Assistance 5=Supervision or Setup 2=Maximal Assistance 6=Modified [place] 3=Moderate Assistance 7=Complete [place] Therapy Quality Codes: 6 Independent with activity with or without an assistive device 5 Patient requires set up or clean up by helper. Patient completes activity by themselves 4 Supervision or touching assist (CGA). [place] provide cues , steadying assist 3 The helper provides less than half the effort to complete the activity 2 The helper provides more than half the effort to complete the activity 1 Dependent. The helper does all the effort to complete an activity 7 Patient refused to complete or attempt activity 9 The patient did not perform the activity before the current illness or injury 88 Not attempted due to Medical conditions or safety concerns Transfers (B, C, W/C) (FIM): 3 Scootin Rollin Roll Left to Right (QC): 3 Supine to/from Sit: 4 Sit to/from Stand: 3 Sit to Lying (QC): 3 Sit to Stand (QC): 2 Chair/[id number] Xfer(QC): 2 Bed to/from Chair: 2 Car Transfer (QC): 2 Gait Training Does the Patient Walk?: Yes Gait (FIM): 1 Gait Level of Assist: 3 Gait Assistive Device: Parallel Bars Mental Status/Objective Comprehension: 7 Expression: 7 Social Interaction: 7 Problem Solvin Memory: 7 ADL-Treatment Feedin (Set up by report) Eating (QC): 5 Groomin Oral Hygiene (QC): 4 Bathin Shower/Bathe Self (QC): 3 Upper Extremity Dressin Upper Body Dressing (QC): 4 Lower Extremity Dressin Lower Body Dressing (QC): 1 On/Off Footwear (QC): 1 Toiletin Toileting Hygiene (QC): 2 Toilet/Commode Transfer: 3 Toilet Transfer (QC): 3 Shower: 0 Assessment/Plan Assessment and Plan Assess & Plan/Chief Complaint Assessment: Spinal cord decompression POD # 6 Kyphoplasty overfill causing spinal cord injury Severe COPD Smoker Depression w/h/o suicidal attempts HTN Post op constipation Plan: Monitor lungs and emotional status closely BM regimen Monitor BP Psych consult Complete abx and steroids and lungs are clear today 12/14/18 Dramatic improvement overall and patient is thrilled with her progress (1) Spinal cord compression (2) Osteoporosis (3) Anxiety (4) Respiratory insufficiency (5) Hypoxia (6) GERD (gastroesophageal reflux disease) (7) COPD exacerbation (8) Pneumonia involving right lung (9) Compression fracture of T8 vertebra (10) S/P kyphoplasty (11) Smoker ALEYDA MONROY DO Dec 15, 2018 09:14
--- NOTE | 2018-12-15 10:21 | Occupational Ther Daily Note ---
OT Current Status-Daily Note Subjective Pt. reports being sore, but does not report a pain level. Pt. has had pain meds already. Appearance Pt. in bed asleep. Does wake up however. Agrees to shower. Mental Status/Objective Patient Orientation: Person, Place Therapy Code Descriptions/Definitions Functional [place] Measure: 0=Not Assessed/NA 4=Minimal Assistance 1=Total Assistance 5=Supervision or Setup 2=Maximal Assistance 6=Modified [place] 3=Moderate Assistance 7=Complete [place] Attachments: Drains ADL-Treatment Therapy Code Descriptions/Definitions Functional [place] Measure: 0=Not Assessed/NA 4=Minimal Assistance 1=Total Assistance 5=Supervision or Setup 2=Maximal Assistance 6=Modified [place] 3=Moderate Assistance 7=Complete [place] Therapy Quality Codes: 6 Independent with activity with or without an assistive device 5 Patient requires set up or clean up by helper. Patient completes activity by themselves 4 Supervision or touching assist (CGA). [place] provide cues , steadying assist 3 The helper provides less than half the effort to complete the activity 2 The helper provides more than half the effort to complete the activity 1 Dependent. The helper does all the effort to complete an activity 7 Patient refused to complete or attempt activity 9 The patient did not perform the activity before the current illness or injury 88 Not attempted due to Medical conditions or safety concerns Bathing (FIM): 4 (Min assist to bathe self in shower.) Shower/Bathe Self (QC): 4 Upper Body (FIM): 5 Upper Body Dressing (QC): 4 Lower Body Dressing (FIM): 3 (Pt. able to doff/don socks, underwear and pants, with assist to pull pants up in back. Assist needed to don shoes.) Lower Body Dressing (QC): 3 On/Off Footwear (QC): 4 Transfers (B, C, W/C) (FIM): 4 (CGA sit-stand and transfer) Shower Transfer(FIM): 4 Other Treatment Pt. doing well. Does report worry about her spouse who apparently went to ER this weekend with high blood sugars. OT problem solved some issues with cooking for health when she returns home. Pt. agrees to shower and dress. Pt. able to bring legs up to her in sitting, but does become SOA. Will educate pt. on AE at later time to see if this assists her with ADLs and energy conservation. Education OT Patient Education: Correct positioning, Modified ADL techniques, Progress toward Goal/Update tx plan, Purpose of tx/functional activities, Reviewed precautions, Rehab process, Transfer techniques Teaching Recipient: Patient Teaching Methods: Demonstration, Discussion Response to Teaching: Verbalize Understanding, Return Demonstration OT Short Term Goals Short Term Goals Time Frame: Dec 26, 2018 Bathing(FIM): 4 Lower Body Dressing(FIM): 3 Toileting(FIM): 3 Transfers (B,C,W/C) (FIM): 4 Toilet/Commode Transfer(FIM): 4 Additional Short Term Goals: 1-Demonstrate ADL Tasks, 2-Verbalize Understanding, 3-ImproveStrength/Re 1=Demonstrate adherence to instructed precautions during ADL tasks. 2=Patient will verbalize/demonstrate understanding of assistive devices/modifications for ADL. 3=Patient will improve strength/tolerance for activity to enable patient to perform ADL's. OT Test Technician Goals Test Technician Goals Time Frame: Jan 09, 2019 Eating (FIM): 6 Eating (QC): 6 Groomin Oral Hygiene (QC): 6 Bathing(FIM): 5 Shower/Bathe Self (QC): 5 Upper Body Dressing(FIM): 6 Upper Body Dressing (QC): 6 Lower Body Dressing(FIM): 5 Lower Body Dressing (QC): 5 On/Off Footwear (QC): 5 Toileting(FIM): 5 Toileting Hygiene (QC): 5 Toilet/Commode Transfer(FIM): 6 Toilet/Commode Transfer (QC): 6 Shower Transfer(FIM): 5 Additional Goals: 1-Demonstrate ADL Tasks, 2-Verbalize Understanding, 3- ImproveStrength/Re 1=Demonstrate adherence to instructed precautions during ADL tasks. 2=Patient will verbalize/demonstrate understanding of assistive devices/modifications for ADL. 3=Patient will improve strength/tolerance for activity to enable patient to perform ADL's. OT Education/Plan Problem List/Assessment Assessment: Decreased Activ Tolerance, Impaired I ADL's, Impaired Self-Care Ski lls Discharge Recommendations Plan/Recommendations: Continue POC Therapy D/C Recommendations: Home w/ Family Support, Occupational Therapy Home Care Equpiment Recommendations-D/C: Hip Kit Treatment Plan/Plan of Care Treatment,Training & Education: Yes Patient would benefit from OT for education, treatment and training to promote independence in ADL's, mobility, safety and/or upper extremity function for ADL's. Plan of Care: ADL Retraining, Functional Mobility, Group Exercise/Act as Ind, UE Funct Exercise/Act Treatment Duration: Jan 09, 2019 Frequency: At least 5 of 7 days/Wk (IRF) Estimated Hrs Per Day: 1.5 hours per day Agreement: Yes Rehab Potential: Fair Time/GCodes Start Time: 08:15 Stop Time: 09:30 Total Time Billed (hr/min): 75 Billed Treatment Time 1, ADL x 5 TIMOTHY QUINTERO OT Dec 15, 2018 10:21
[2018-12-15] MEDS ORDERED: DOCUSATE SODIUM 100 MG (COLACE) CAP PO PRN (10:30)
[2018-12-15] MEDS ORDERED: POLYETHYLENE GLYCOL 17 GM (MIRALAX) PACK PO PRN (10:45)
[2018-12-15] MEDS ORDERED: LACTULOSE SYRUP 10GM/15ML (ENULOSE) 30ML UDC PO PRN (10:45)
--- NOTE | 2018-12-15 11:52 | NUR ---
SERVOMECHANISM ASSEMBLER received notification from RNNikki of unsuccessful attempts in scheduling consult. SERVOMECHANISM ASSEMBLER contact and was able to reach the office and schedule appt for 12/17 with Annia between -. Staff believes patient is experiencing an increase in depression and anxiety following new debility.
--- NOTE | 2018-12-15 11:55 | Physical Therapy Daily Note ---
PT Daily Note-Current Subjective Patient in bed pre tx, agrees to PT, has 7/10 pain in back. Patient states that therapist needs to check with the nurse first because she was having issues, nurse states she was having low blood pressure but is ok for therapy. It is explained to patient that we will take it slow and just do what she can. Patient states that she is not going to wear her back brace. It is explained that she needs the brace to protect her back and the doctor requires her to wear it when out of bed. Patient states she doesn't care and is not going to wear it because it hurts. Appearance Patient in bed post tx with nurse call, phone, tray, all needs met. Patient states she is not going to participate in therapy this afternoon. Mental Status Patient Orientation: Person, Place, Situation Transfers Therapy Code Descriptions/Definitions Functional [place] Measure: 0=Not Assessed/NA 4=Minimal Assistance 1=Total Assistance 5=Supervision or Setup 2=Maximal Assistance 6=Modified [place] 3=Moderate Assistance 7=Complete [place] Therapy Quality Codes: 6 Independent with activity with or without an assistive device 5 Patient requires set up or clean up by helper. Patient completes activity by themselves 4 Supervision or touching assist (CGA). [place] provide cues , steadying assist 3 The helper provides less than half the effort to complete the activity 2 The helper provides more than half the effort to complete the activity 1 Dependent. The helper does all the effort to complete an activity 7 Patient refused to complete or attempt activity 9 The patient did not perform the activity before the current illness or injury 88 Not attempted due to Medical conditions or safety concerns Transfers (B, C, W/C) (FIM): 4 Scootin Rollin Supine to/from Sit: 5 Sit to/from Stand: 4 Bed to/from Chair: 4 CGA for transfers, cues for hand placement with sit <-> stand. Gait Training Gait (FIM): 1 Distance: 20'x3 Gait Level of Assist: 4 Gait Persons Needed: 1 Gait Assistive Device: FWW Patient can ambulate 20' with a rolling walker with CGA. She has uncoordinated steps on both sides but it has improved since admission. Wheelchair Training Does the Pt Use a Wheelchair?: Yes Wheelchair (FIM): 2 Distance: 50' Wheelchair Level of Assist: 5 Type of Wheelchair: Manual Exercises Standing: Heel/toe raises, Marching, Mini squats Standing Reps: 15 LAQ alternating for 5 min Treatments LE exercise, ambulation, wheelchair management Assessment Current Status: Fair Progress improving general mobility PT Short Term Goals Short Term Goals Time Frame: Dec 19, 2018 Transfers (B,C,W/C) (FIM): 4 Gait (FIM): 1 Gait Distance Comment: 20' Gait Level of Assist: 4 Gait Assistive Device: FWW PT Shelter Goals Shelter Goals PT Shelter Goals Time Frame: Jan 02, 2019 Transfers (B,C,W/C) (FIM): 5 Sit to Lying (QC): 6 Lying-Sitting on Side/Bed(QC): 6 Sit to Stand (QC): 4 Rollin Roll Left to Right (QC): 6 Chair/Wrf-jn-Fgonp Xfer(QC): 4 Car Transfer (QC): 4 Gait (FIM): 5 Distance: 150' Walk 10 feet (QC): 4 Walk 10ft-Uneven Surface(QC): 4 Walk 50ft with 2 Turns (QC): 4 Walk 150 ft (QC): 4 Gait Level of Assist: 5 Gait Assistive Device: FWW Stairs (FIM): 2 # of Steps: 4 1 Step (curb) (QC): 4 4 Steps (QC): 4 Stairs Level Of Assist: 4 PT Plan Problem List Problem List: Activity Tolerance, Functional Strength, Safety, Balance, Gait, Transfer, Bed Mobility, ROM Treatment/Plan Treatment Plan: Continue Plan of Care Treatment Plan: Bed Mobility, Concurrent Therapy, Education, Functional Activity Re, Functional Strength, Group Therapy, Gait, Safety, Therapeutic Exercise, Transfers Treatment Duration: Jan 02, 2019 Frequency: At least 5 of 7 days/Wk (IRF) Estimated Hrs Per Day: 1.5 hours per day Patient and/or Family Agrees t: Yes Safety Risks/Education Patient Education: Gait Training, Transfer Techniques, Reviewed Precautions, Correct Positioning, Safety Issues Teaching Recipient: Patient Teaching Methods: Demonstration, Discussion Response to Teaching: Reinforcement Needed Time/GCodes Time In: 1100 Time Out: 1200 Total Billed Treatment Time: 60 Total Billed Treatment 1 visit GT 30' EX 20' FA 10' HAYES ARELLANO PT Dec 15, 2018 11:55
--- NOTE | 2018-12-15 14:16 | Occupational Ther Daily Note ---
OT Current Status-Daily Note Subjective No pain reported. Appearance Pt. in bathroom when OT enters room. Mental Status/Objective Patient Orientation: Person, Place, Time, Situation Therapy Code Descriptions/Definitions Functional [place] Measure: 0=Not Assessed/NA 4=Minimal Assistance 1=Total Assistance 5=Supervision or Setup 2=Maximal Assistance 6=Modified [place] 3=Moderate Assistance 7=Complete [place] ADL-Treatment Therapy Code Descriptions/Definitions Functional [place] Measure: 0=Not Assessed/NA 4=Minimal Assistance 1=Total Assistance 5=Supervision or Setup 2=Maximal Assistance 6=Modified [place] 3=Moderate Assistance 7=Complete [place] Therapy Quality Codes: 6 Independent with activity with or without an assistive device 5 Patient requires set up or clean up by helper. Patient completes activity by themselves 4 Supervision or touching assist (CGA). [place] provide cues , steadying assist 3 The helper provides less than half the effort to complete the activity 2 The helper provides more than half the effort to complete the activity 1 Dependent. The helper does all the effort to complete an activity 7 Patient refused to complete or attempt activity 9 The patient did not perform the activity before the current illness or injury 88 Not attempted due to Medical conditions or safety concerns Toileting (FIM): 6 Toileting Hygiene (QC): 6 Transfers (B, C, W/C) (FIM): 5 Toilet/Commode Transfer (FIM): 5 Toilet Transfer (QC): 5 Other Treatment Pt. up on toilet. Completed toileting task prior to OT coming into bathroom. Pt. able to ambulate back to room with SBA using walker. Pt. able to transfer self back to bed with SBA. OT brought in ADL equipment and pt. was educated on it again for back safety, and energy conservation. Pt. verbalized understanding of equipment. All needs met back in bed. Education OT Patient Education: Correct positioning, Modified ADL techniques, Progress toward Goal/Update tx plan, Purpose of tx/functional activities, Reviewed precautions, Rehab process, Transfer techniques Teaching Recipient: Patient Teaching Methods: Demonstration, Discussion Response to Teaching: Verbalize Understanding, Return Demonstration OT Short Term Goals Short Term Goals Time Frame: Dec 26, 2018 Bathing(FIM): 4 Lower Body Dressing(FIM): 3 Toileting(FIM): 3 Transfers (B,C,W/C) (FIM): 4 Toilet/Commode Transfer(FIM): 4 Additional Short Term Goals: 1-Demonstrate ADL Tasks, 2-Verbalize Unders tanding, 3-ImproveStrength/Re 1=Demonstrate adherence to instructed precautions during ADL tasks. 2=Patient will verbalize/demonstrate understanding of assistive devices/modifications for ADL. 3=Patient will improve strength/tolerance for activity to enable patient to perform ADL's. OT Nursing Home Goals Armature Winder Repairer Goals Time Frame: Jan 09, 2019 Eating (FIM): 6 Eating (QC): 6 Groomin Oral Hygiene (QC): 6 Bathing(FIM): 5 Shower/Bathe Self (QC): 5 Upper Body Dressing(FIM): 6 Upper Body Dressing (QC): 6 Lower Body Dressing(FIM): 5 Lower Body Dressing (QC): 5 On/Off Footwear (QC): 5 Toileting(FIM): 5 Toileting Hygiene (QC): 5 Toilet/Commode Transfer(FIM): 6 Toilet/Commode Transfer (QC): 6 Shower Transfer(FIM): 5 Additional Goals: 1-Demonstrate ADL Tasks, 2-Verbalize Understanding, 3- ImproveStrength/Re 1=Demonstrate adherence to instructed precautions during ADL tasks. 2=Patient will verbalize/demonstrate understanding of assistive devices/modifications for ADL. 3=Patient will improve strength/tolerance for activity to enable patient to perform ADL's. OT Education/Plan Problem List/Assessment Assessment: Decreased Activ Tolerance, Impaired I ADL's, Impaired Self-Care Skills Discharge Recommendations Plan/Recommendations: Continue POC Therapy D/C Recommendations: Home w/ Family Support, Occupational Therapy Home Care Equpiment Recommendations-D/C: Hip Kit Treatment Plan/Plan of Care Treatment,Training & Education: Yes Patient would benefit from OT for education, treatment and training to promote independence in ADL's, mobility, safety and/or upper extremity function for A DL's. Plan of Care: ADL Retraining, Functional Mobility, Group Exercise/Act as Ind, UE Funct Exercise/Act Treatment Duration: Jan 09, 2019 Frequency: At least 5 of 7 days/Wk (IRF) Estimated Hrs Per Day: 1.5 hours per day Agreement: Yes Rehab Potential: Fair Time/GCodes Start Time: 13:00 Stop Time: 13:15 Total Time Billed (hr/min): 15 Billed Treatment Time 1, ADL TIMOTHY QUINTERO OT Dec 15, 2018 14:16
--- NOTE | 2018-12-15 14:30 | Physical Therapy Daily Note ---
PT Daily Note-Current Subjective Patient reports fatigue but agrees to PT. Pain Numeric Pain Scale: 5-Moderate Pain Location: Medial, Upper Location Body Site: Back Pain Description: Acute Mental Status Patient Orientation: Normal For Age Transfers Therapy Code Descriptions/Definitions Functional [place] Measure: 0=Not Assessed/NA 4=Minimal Assistance 1=Total Assistance 5=Supervision or Setup 2=Maximal Assistance 6=Modified [place] 3=Moderate Assistance 7=Complete [place] Therapy Quality Codes: 6 Independent with activity with or without an assistive device 5 Patient requires set up or clean up by helper. Patient completes activity by themselves 4 Supervision or touching assist (CGA). [place] provide cues , steadying assist 3 The helper provides less than half the effort to complete the activity 2 The helper provides more than half the effort to complete the activity 1 Dependent. The helper does all the effort to complete an activity 7 Patient refused to complete or attempt activity 9 The patient did not perform the activity before the current illness or injury 88 Not attempted due to Medical conditions or safety concerns Transfers (B, C, W/C) (FIM): 4 Scootin Rollin Roll Left to Right (QC): 5 Supine to/from Sit: 5 Sit to/from Stand: 4 Sit to Lying (QC): 5 Sit to Stand (QC): 4 Chair/Ddw-kp-Nzikh Xfer(QC): 4 Bed to/from Chair: 4 CGA for safety only Gait Training Does the Patient Walk?: Yes Gait (FIM): 2 Distance (FIM): 3=962-36 ft Distance: 100' x 1; 125' x 3 Walk 10 feet (QC): 4 Walk 50 ft with 2 Turns(QC): 4 Gait Level of Assist: 4 Gait Assistive Device: FWW CGA for safety/slow, methodical gait with patient looking at feet secondary to diminished proprioception Exercises Supine Ex: Ankle pumps, Quad Set, Heel Slides Supine Reps: 15 Seated Therapy Exercises: Ankle pumps, Long arc quads, Hip flexion Seated Reps: 15 (2 sets) Assessment Patient improving with treatment plan. Patient adamantly declined back brace use due to discomfort. Educated with patient on importance of brace use, however, the patient continued to decline use. PT Short Term Goals Short Term Goals Time Frame: Dec 19, 2018 Transfers (B,C,W/C) (FIM): 4 Gait (FIM): 1 Gait Distance Comment: 20' Gait Level of Assist: 4 Gait Assistive Device: FWW Wheelchair Distance: 50' PT Disc Inspector Goals Long-Term Goals PT Long-Term Goals Time Frame: Jan 02, 2019 Transfers (B,C,W/C) (FIM): 5 Sit to Lying (QC): 6 Lying-Sitting on Side/Bed(QC): 6 Sit to Stand (QC): 4 Rollin Roll Left to Right (QC): 6 Chair/Ufr-ij-Ulxdm Xfer(QC): 4 Car Transfer (QC): 4 Gait (FIM): 5 Distance: 150' Walk 10 feet (QC): 4 Walk 10ft-Uneven Surface(QC): 4 Walk 50ft with 2 Turns (QC): 4 Walk 150 ft (QC): 4 Gait Level of Assist: 5 Gait Assistive Device: FWW Stairs (FIM): 2 # of Steps: 4 1 Step (curb) (QC): 4 4 Steps (QC): 4 Stairs Level Of Assist: 4 PT Plan Treatment/Plan Treatment Plan: Continue Plan of Care Treatment Plan: Bed Mobility, Concurrent Therapy, Education, Functional Activity Re, Functional Strength, Group Therapy, Gait, Safety, Therapeutic Exercise, Transfers Treatment Duration: Jan 02, 2019 Frequency: At least 5 of 7 days/Wk (IRF) Estimated Hrs Per Day: 1.5 hours per day Patient and/or Family Agrees t: Yes Time/GCodes Time In: 1355 Time Out: 1425 Total Billed Treatment Time: 30 Total Billed Treatment 1 visit EX 16 min GT 14 in SUKHWINDER RUEDA PT Dec 15, 2018 14:30
[2018-12-15 17:23] VITALS: BP 139/74
--- NOTE | 2018-12-15 17:38 | NUR ---
SHEAR OPERATOR HELPER met with patient to complete initial assessment. Patient was alert and oriented and agreeable to assessment. patient admitted to ARU from internally with lumbar spondylosis and spinal stenosis, surgery performed by Dr. Goldstein. patient, spouse and adult son reside in [place], [place]. The home is one level with 2-3 steps at the entrance with railing. Prior to approximately one year ago patient was independent and pain-free until she fell, pulling down a tree branch, in August 2017. Since that time, patient has struggled to manage the pain, has became more unbalanced and recently unable to walk. Patient began using a front-wheeled walker a week prior to hospitalization. Patient expresses extreme frustration with previous doctors as they provided no solutions, and did not refer her to an orthopod or customer resource specialist. Patient became tearful when discussing her inability to walk, lead to recent procedure. She is also tearful regarding hospitalization that has required her to be from her , who has been to the ED twice since her hospital admission. SHEAR OPERATOR HELPER validated patient's concerns, expressed sympathy and offered a solution focused approach. Although patient is eager to return home [place], she is understanding that she is in need of further improvements physically doing so. Patient is hopeful that she will be safe to return home early next week with outpatient therapies. SHEAR OPERATOR HELPER has suggested patient offer for spouse to stay overnight to reduce her separation anxiety. Following lengthy conversation, patient expresses appreciation for brief therapy and currently feels more relaxed. SHEAR OPERATOR HELPER relayed recommendation of consult, patient is agreeable. Primary contact identified as spouse, Luis at [phone], secondary contact as daughter, Linda at [phone] and sonMina at [phone]. PCP identified as Robbi Duncan of [place], [place] insurance verified as Medicare and [employer] with prescription coverage and preferred pharmacy as [facility]. SHEAR OPERATOR HELPER reviewed typical ARU length of stay and weekly team conferences. SHEAR OPERATOR HELPER will continue to follow for additional needs.
[2018-12-15] MEDS: RT-ALBUTEROL/IPRATROPIUM 3 ML (DUONEB) VIAL IH PRN (18:25)
[2018-12-15] MEDS: clonazePAM 0.5 MG (KlonoPIN) TAB PO SCH (20:32)
[2018-12-15] MEDS: MONTELUKAST 10 MG (SINGULAIR) TAB PO SCH (20:32)
[2018-12-16] MEDS: ACETAMINOPHEN 500 MG TAB (TYLENOL) PO PRN (01:20)
[2018-12-16] MEDS: oxyCODONE/APAP 5/325MG (PERCOCET 5) TABLET PO PRN ×4 (04:13→21:38)
[2018-12-16 06:05] VITALS: BP 131/71
[2018-12-16 06:13] LABS: BASOPHILS % (AUTO) 0 % (0-10); EOSINOPHILS # (AUTO) 0.1 10^3/uL (0.0-0.3); EOSINOPHILS % (AUTO) 1 % (0-10); HEMATOCRIT 28 % (35-52); HEMOGLOBIN 8.6 G/DL (11.5-16.0); LYMPHOCYTES % (AUTO) 20 % (12-44); MEAN CORPUSCULAR HEMOGLOBIN 31 PG (25-34); MEAN CORPUSCULAR HGB CONC 31 G/DL (32-36); MEAN CORPUSCULAR VOLUME 98 FL (80-99); MEAN PLATELET VOLUME 10.1 FL (7.4-10.4); MONOCYTES # (AUTO) 0.8 X 10^3 (0.0-1.0); MONOCYTES % (AUTO) 8 % (0-12); NEUTROPHILS # (AUTO) 7.2 X 10^3 (1.8-7.8); NEUTROPHILS % (AUTO) 71 % (42-75); PLATELET COUNT 247 10^3/uL (130-400); RED CELL DISTRIBUTION WIDTH 15.4 % (10.0-14.5)
[2018-12-16] MEDS: VENlafaxine XR 75 MG (EFFEXOR XR) CAP PO SCH (06:21)
[2018-12-16] MEDS: CALCIUM CARB + VIT D 600 MG (CALCARB + D) TAB PO SCH ×2 (06:21→17:38)
[2018-12-16] MEDS: PANTOPRAZOLE 40 MG (PROTONIX) TAB PO SCH (06:21)
[2018-12-16] MEDS: predniSONE 20 MG TAB PO SCH (06:21)
[2018-12-16 06:37] LABS: ALANINE AMINOTRANSFERASE 33 U/L (0-55); ALBUMIN 3.1 GM/DL (3.2-4.5); ALKALINE PHOSPHATASE 64 U/L (40-136); BILIRUBIN,TOTAL 0.4 MG/DL (0.1-1.0); BUN/CREATININE RATIO 24; CALCIUM 8.8 MG/DL (8.5-10.1); CARBON DIOXIDE 30 MMOL/L (21-32); CHLORIDE 99 MMOL/L (98-107); CREATININE SERUM 0.71 MG/DL (0.60-1.30); GFR ESTIMATED > 60; GLUCOSE 123 MG/DL (70-105); SODIUM 139 MMOL/L (135-145); TOTAL PROTEIN 5.3 GM/DL (6.4-8.2)
[2018-12-16] MEDS: RT-ALBUTEROL/IPRATROPIUM 3 ML (DUONEB) VIAL IH PRN ×2 (07:23→20:32)
[2018-12-16] MEDS ORDERED: IRON SUCROSE 200 MG/10 ML (VENOFER) VIAL IV SCH (08:45)
[2018-12-16] MEDS: RT-ADVAIR HFA 115/21 MCG PER PUFF IH SCH ×2 (09:00→20:34)
--- NOTE | 2018-12-16 09:10 | PM&R Progress Note ---
Subjective HPI/CC On Admission Date Seen by Provider: Dec 16, 2018 Time Seen by Provider: 09:00 CC: Spinal cord decompression HPI: From acute care hospital course: Hospital course: Patient had a lengthy hospital course for 9 days after she was admitted for exacerbation of COPD and pneumonia when she became hypoxic and wheezing unable to undergo spinal cord decompression from overfill of cement with kyphoplasty done a few weeks prior. She was transferred from [facility] and Dr. Hobson was consulted. Chest x-ray revealed infiltrate so IV antibiotics were empirically placed. Nebulizer treatments were started along with oxygen supplementation along with IV steroids. Patient was able to undergo spinal cord surgery on 12/09/[address] Goldstein and Dr. Noland. The surgery was a success. IV antibiotics were switc hed to oral antibiotics along with tapering of steroids and maintained on nebulizer treatments and oxygen supplementation. Severe postop constipation required multiple meds were still in process at time of transfer to inpatient rehabilitation. Patient doing much better today, small BM's after multiple meds and SSE and still working on that process. Pain is well controlled. Psych consult due to d epression and h/o suicidal attempts. PLOF was independent for ambulation and ADL's. Will focus on improving strength and return bowel function to normal and monitor lungs for severe COPD. Subjective/Events-last exam Patient improves every day. Bree FELTON spoke to patient in-depth for 30 minutes and that seems to have helped her overall viewpoint of her circumstance BM regular and maintained on minimal meds Overall pain is well controlled at this current time. Soreness persists but that will get better each day and she was counseled on that DC drain last night and updated Dr Goldstein Lungs remain clear and finishing the antibiotic and steroid regimen. Nebulizer treatments to remain. She takes those at home anyway Hgb 8.6 starting Venofer IV infusions Eating and drinking well. Overall walking very well with a walker and seems to have dramatic improvement since last week. Psych consult today Conferred with RN Reviewed therapy notes Review of Systems General: Fatigue Pulmonary: Dyspnea Musculoskeletal: back pain Objective Exam Vital Signs Vital Signs Date Time Temp Pulse Resp B/P (MAP) Pulse Ox O2 Delivery O2 Flow Rate FiO2 12/16/18 09:18 137/84 (101) 12/16/18 06:05 98.1 85 20 95 Room Air Capillary Refill : General Appearance: No Apparent Distress, WD/WN, Chronically ill HEENT: PERRL/EOMI, Normal ENT Inspection, Pharynx Normal, Moist Mucous Membranes Neck: Full Range of Motion, Normal Inspection, Non Tender, Supple Respiratory: Chest Non Tender, Lungs Clear, Normal Breath Sounds, No Accessory Muscle Use, No Respiratory Distress Cardiovascular: Regular Rate, Rhythm, No Edema, No Gallop, No JVD, No Murmur Gastrointestinal: Normal Bowel Sounds, No Organomegaly, No Pulsatile Mass, Non Tender, Soft Back: Decreased Range of Motion, Muscle Spasm, Vertebral Tenderness Extremity: Normal Capillary Refill, Normal Inspection, Normal Range of Motion, Non Tender, No Calf Tenderness, No Pedal Edema Neurologic/Psychiatric: Alert, Oriented x3, No Motor/Sensory Deficits, Normal Mood/Affect, voice intercept technician II-XII Norm as Tested, Motor Weakness (generalized weakness upper extremities, 3/5 lower legs) Skin: Normal Color, Warm/Dry Lymphatic: No Adenopathy Results/Procedures Lab Laboratory Tests 12/16/18 05:46 Patient resulted labs reviewed. FIM Transfers Therapy Code Descriptions/Definitions Functional [place] Measure: 0=Not Assessed/NA 4=Minimal Assistance 1=Total Assistance 5=Supervision or Setup 2=Maximal Assistance 6=Modified [place] 3=Moderate Assistance 7=Complete [place] Therapy Quality Codes: 6 Independent with activity with or without an assistive device 5 Patient requires set up or clean up by helper. Patient completes activity by themselves 4 Supervision or touching assist (CGA). [place] provide cues , steadying assist 3 The helper provides less than half the effort to complete the activity 2 The helper provides more than half the effort to complete the activity 1 Dependent. The helper does all the effort to complete an activity 7 Patient refused to complete or attempt activity 9 The patient did not perform the activity before the current illness or injury 88 Not attempted due to Medical conditions or safety concerns Transfers (B, C, W/C) (FIM): 4 Scootin Rollin Roll Left to Right (QC): 5 Supine to/from Sit: 5 Sit to/from Stand: 4 Sit to Lying (QC): 5 Sit to Stand (QC): 4 Chair/Bcc-vr-Qhzme Xfer(QC): 4 Bed to/from Chair: 4 Car Transfer (QC): 2 Gait Training Does the Patient Walk?: Yes Gait (FIM): 2 Distance (FIM): 9=772-81 ft Distance: 100' x 1; 125' x 3 Walk 10 feet (QC): 4 Walk 50 ft with 2 Turns(QC): 4 Gait Level of Assist: 4 Gait Persons Needed: 1 Gait Assistive Device: FWW Wheelchair Training Does the Pt Use a Wheelchair?: Yes Wheelchair (FIM): 2 Distance: 50' Wheelchair Level of Assist: 5 Type of Wheelchair: Manual Mental Status/Objective Comprehension: 7 Expression: 7 Social Interaction: 7 Problem Solvin Memory: 7 ADL-Treatment Feedin (Set up by report) Eating (QC): 5 Groomin Oral Hygiene (QC): 4 Bathin (Min assist to bathe self in shower.) Shower/Bathe Self (QC): 4 Upper Extremity Dressin Upper Body Dressing (QC): 4 Lower Extremity Dressin (Pt. able to doff/don socks, underwear and pants, with assist to pull pants up in back. Assist needed to don shoes.) Lower Body Dressing (QC): 3 On/Off Footwear (QC): 4 Toiletin Toileting Hygiene (QC): 6 Toilet/Commode Transfer: 5 Toilet Transfer (QC): 5 Shower: 4 Assessment/Plan Assessment and Plan Assess & Plan/Chief Complaint Assessment: Spinal cord decompression POD # 7 Kyphoplasty overfill causing spinal cord injury Severe COPD Smoker Depression w/h/o suicidal attempts HTN Post op constipation Plan: Monitor lungs and emotional status closely BM regimen Monitor BP Psych consult today Iron infusions to begin and checking level prior to starting infusion Complete abx and steroids and lungs are clear today 12/14/18 Dramatic improvement overall and patient is thrilled with her progress (1) Spinal cord compression (2) Osteoporosis (3) Anxiety (4) Respiratory insufficiency (5) Hypoxia (6) GERD (gastroesophageal reflux disease) (7) COPD exacerbation (8) Pneumonia involving right lung (9) Compression fracture of T8 vertebra (10) S/P kyphoplasty (11) Smoker ALEYDA MONROY DO Dec 16, 2018 09:09
[2018-12-16 09:18] VITALS: BP 137/84
[2018-12-16] MEDS: lisINopril 20 MG (PRINIVIL) TABLET PO SCH (09:53)
[2018-12-16] MEDS: SENNA W/DOCUSATE (SENOKOT S) TABLET PO SCH ×2 (09:53→20:24)
[2018-12-16] MEDS: meTOprolol TARTRATE 25 MG (LOPRESSOR) TABLET PO SCH ×2 (09:54→20:23)
[2018-12-16] MEDS: LORATADINE (CLARITIN) 10 MG TAB PO SCH (09:54)
[2018-12-16] MEDS: MELOXICAM 7.5 MG (MOBIC) TABLET PO SCH (09:54)
[2018-12-16] MEDS: ATORVASTATIN 10 MG (LIPITOR) TABLET PO SCH (09:54)
--- NOTE | 2018-12-16 10:55 | Physical Therapy Daily Note ---
PT Daily Note-Current Subjective Patient in bed pre tx, agrees to PT, has 8/10 pain in her back, states nurse has already given her pain meds. Still refuses to wear back brace. Appearance Patient in bed post tx with nurse call, phone, tray, all needs met. Mental Status Patient Orientation: Person, Place, Situation back brace Transfers Therapy Code Descriptions/Definitions Functional [place] Measure: 0=Not Assessed/NA 4=Minimal Assistance 1=Total Assistance 5=Supervision or Setup 2=Maximal Assistance 6=Modified [place] 3=Moderate Assistance 7=Complete [place] Therapy Quality Codes: 6 Independent with activity with or without an assistive device 5 Patient requires set up or clean up by helper. Patient completes activity by themselves 4 Supervision or touching assist (CGA). [place] provide cues , steadying assist 3 The helper provides less than half the effort to complete the activity 2 The helper provides more than half the effort to complete the activity 1 Dependent. The helper does all the effort to complete an activity 7 Patient refused to complete or attempt activity 9 The patient did not perform the activity before the current illness or injury 88 Not attempted due to Medical conditions or safety concerns Transfers (B, C, W/C) (FIM): 5 Scootin Rollin Supine to/from Sit: 6 Sit to/from Stand: 5 Bed to/from Chair: 5 Cues for safety and positioning during transfers Gait Training Gait (FIM): 2 Distance: 100'x2 Gait Level of Assist: 4 Gait Persons Needed: 1 Gait Assistive Device: FWW Still CGA but barely, still unsteady during ambulation and decreased coordination in LE's but it has improved, slow ambulation, needs occasional standing rest break. Exercises Standing: Hip Abduction, Heel/toe raises, Marching, Mini squats Standing Reps: 15 LAQ alternating for 5 min NuStep Minutes: 15 NuStep Workload: 4 Treatments bed mobility and transfers, ambulation, functional strengthening Assessment Current Status: Fair Progress improved ambulation and endurance PT Short Term Goals Short Term Goals Time Frame: Dec 19, 2018 Transfers (B,C,W/C) (FIM): 4 Gait (FIM): 1 Gait Distance Comment: 20' Gait Level of Assist: 4 Gait Assistive Device: FWW Wheelchair Distance: 50' PT Assistant Professor In Family Studies Goals Half-Way Goals PT Assistant Professor In Family Studies Goals Time Frame: Jan 02, 2019 Transfers (B,C,W/C) (FIM): 5 Sit to Lying (QC): 6 Lying-Sitting on Side/Bed(QC): 6 Sit to Stand (QC): 4 Rollin Roll Left to Right (QC): 6 Chair/Wdx-zi-Bapkz Xfer(QC): 4 Car Transfer (QC): 4 Gait (FIM): 5 Distance: 150' Walk 10 feet (QC): 4 Walk 10ft-Uneven Surface(QC): 4 Walk 50ft with 2 Turns (QC): 4 Walk 150 ft (QC): 4 Gait Level of Assist: 5 Gait Assistive Device: FWW Stairs (FIM): 2 # of Steps: 4 1 Step (curb) (QC): 4 4 Steps (QC): 4 Stairs Level Of Assist: 4 PT Plan Problem List Problem List: Activity Tolerance, Functional Strength, Safety, Balance, Gait, Transfer, Bed Mobility, ROM Treatment/Plan Treatment Plan: Continue Plan of Care Treatment Plan: Bed Mobility, Concurrent Therapy, Education, Functional Activity Re, Functional Strength, Group Therapy, Gait, Safety, Therapeutic Exercise, Transfers Treatment Duration: Jan 02, 2019 Frequency: At least 5 of 7 days/Wk (IRF) Estimated Hrs Per Day: 1.5 hours per day Patient and/or Family Agrees t: Yes Safety Risks/Education Patient Education: Gait Training, Transfer Techniques, Correct Positioning, Safety Issues Teaching Recipient: Patient Teaching Methods: Demonstration, Discussion Response to Teaching: Reinforcement Needed Time/GCodes Time In: 1000 Time Out: 1100 Total Billed Treatment Time: 60 Total Billed Treatment 1 visit GT 20' FA 10' EX 30' HAYES ARELLANO PT Dec 16, 2018 10:55
--- NOTE | 2018-12-16 12:00 | Occupational Ther Daily Note ---
OT Current Status-Daily Note Subjective Pt in bed, agrees to therapy. Pt reports 8/10 back pain, states she already had pain meds. Pt states "I'm so done with this pain." Pt states she will not wear any back brace secondary to discomfort. Says when new back brace arrives she will "try it" Mental Status/Objective Therapy Code Descriptions/Definitions Functional [place] Measure: 0=Not Assessed/NA 4=Minimal Assistance 1=Total Assistance 5=Supervision or Setup 2=Maximal Assistance 6=Modified [place] 3=Moderate Assistance 7=Complete [place] ADL-Treatment Pt declined bathing, states she would like to clean up this afternoon. Supine to sit with SBA. Transfer to w/c with FWW with CGA for safety. Reviewed back precautions and adaptive equipment for LE dressing. Pt demonstrated ability to don socks with SBA and verbal cues using sock aid. Doffed socks with SBA using dressing stick. Pt donned slip on shoes with minimal assistance using long handled shoe horn. Pt completed grooming tasks while seated at sink. Pt brushed teeth and washed face with set up. Education provided regarding ADLs and home safety. Pt states understanding of education. Pt practiced sit to stand and functional transfers to increase strength and safety needed for mobility. Pt able to complete transfers with CGA to close supervision for safety. Pt has decreased activity tolerance and requires occasional rest breaks throughout treatment. Therapy Code Descriptions/Definitions Functional [place] Measure: 0=Not Assessed/NA 4=Minimal Assistance 1=Total Assistance 5=Supervision or Setup 2=Maximal Assistance 6=Modified [place] 3=Moderate Assistance 7=Complete [place] Therapy Quality Codes: 6 Independent with activity with or without an assistive device 5 Patient requires set up or clean up by helper. Patient completes activity by themselves 4 Supervision or touching assist (CGA). [place] provide cues , steadying assist 3 The helper provides less than half the effort to complete the activity 2 The helper provides more than half the effort to complete the activity 1 Dependent. The helper does all the effort to complete an activity 7 Patient refused to complete or attempt activity 9 The patient did not perform the activity before the current illness or injury 88 Not attempted due to Medical conditions or safety concerns Grooming (FIM): 5 Oral Hygiene (QC): 5 On/Off Footwear (QC): 4 (with adaptive equipment) Education OT Patient Education: Modified ADL techniques Teaching Recipient: Patient Teaching Methods: Demonstration, Discussion Response to Teaching: Verbalize Understanding OT Short Term Goals Short Term Goals Time Frame: Dec 26, 2018 Bathing(FIM): 4 Lower Body Dressing(FIM): 3 Toileting(FIM): 3 Transfers (B,C,W/C) (FIM): 4 Toilet/Commode Transfer(FIM): 4 Additional Short Term Goals: 1-Demonstrate ADL Tasks, 2-Verbalize Understanding, 3-ImproveStrength/Re 1=Demonstrate adherence to instructed precautions during ADL tasks. 2=Patient will verbalize/demonstrate understanding of assistive devices/modifications for ADL. 3=Patient will improve strength/tolerance for activity to enable patient to perform ADL's. OT Lockstitch Front Edge Tape Sewer Goals Residential Goals Time Frame: Jan 09, 2019 Eating (FIM): 6 Eating (QC): 6 Groomin Oral Hygiene (QC): 6 Bathing(FIM): 5 Shower/Bathe Self (QC): 5 Upper Body Dressing(FIM): 6 Upper Body Dressing (QC): 6 Lower Body Dressing(FIM): 5 Lower Body Dressing (QC): 5 On/Off Footwear (QC): 5 Toileting(FIM): 5 Toileting Hygiene (QC): 5 Toilet/Commode Transfer(FIM): 6 Toilet/Commode Transfer (QC): 6 Shower Transfer(FIM): 5 Additional Goals: 1-Demonstrate ADL Tasks, 2-Verbalize Understanding, 3- ImproveStrength/Re 1=Demonstrate adherence to instructed precautions during ADL tasks. 2=Patient will verbalize/demonstrate understanding of assistive devices/modifications for ADL. 3=Patient will improve strength/tolerance for activity to enable patient to perform ADL's. OT Education/Plan Discharge Recommendations Plan/Recommendations: Continue POC Treatment Plan/Plan of Care Patient would benefit from OT for education, treatment and training to promote independence in ADL's, mobility, safety and/or upper extremity function for ADL's. Plan of Care: ADL Retraining, Functional Mobility, Group Exercise/Act as Ind, UE Funct Exercise/Act Treatment Duration: Jan 09, 2019 Frequency: At least 5 of 7 days/Wk (IRF) Estimated Hrs Per Day: 1.5 hours per day Agreement: Yes Rehab Potential: Fair Time/GCodes Start Time: 08:00 Stop Time: 09:00 Total Time Billed (hr/min): 60 Billed Treatment Time 1 visit, ADLx4(60minutes) DEBRA TORRES OT Dec 16, 2018 12:00
[2018-12-16] MEDS: FERROUS SULF 325 MG (IRON) TAB PO SCH (13:37)
--- NOTE | 2018-12-16 13:57 | Occupational Ther Daily Note ---
OT Current Status-Daily Note Subjective Pt in bed, agrees to therapy. Reports 8/10 back pain. Mental Status/Objective Therapy Code Descriptions/Definitions Functional [place] Measure: 0=Not Assessed/NA 4=Minimal Assistance 1=Total Assistance 5=Supervision or Setup 2=Maximal Assistance 6=Modified [place] 3=Moderate Assistance 7=Complete [place] ADL-Treatment Pt supine to sit with SBA. Transfer to chair with CGA for balance. Pt completed sponge bath while seated. Upper body bathing completed with SBA. Pt able to wash bilateral upper legs and [place] area with SBA. Instructed in use of AE for lower body. Pt washed bilateral lower legs and feet with SBA using long sponge. CGA for balance while standing to wash buttocks. Don night gown with set up. Min assist to don underwear. Pt fatigues with activity and requires occasional rest breaks during session. Pt transferred back to bed and completed sit to supine with SBA. Resting in bed with needs met after session. Therapy Code Descriptions/Definitions Functional [place] Measure: 0=Not Assessed/NA 4=Minimal Assistance 1=Total Assistance 5=Supervision or Setup 2=Maximal Assistance 6=Modified [place] 3=Moderate Assistance 7=Complete [place] Therapy Quality Codes: 6 Independent with activity with or without an assistive device 5 Patient requires set up or clean up by helper. Patient completes activity by themselves 4 Supervision or touching assist (CGA). [place] provide cues , steadying assist 3 The helper provides less than half the effort to complete the activity 2 The helper provides more than half the effort to complete the activity 1 Dependent. The helper does all the effort to complete an activity 7 Patient refused to complete or attempt activity 9 The patient did not perform the activity before the current illness or injury 88 Not attempted due to Medical conditions or safety concerns OT Short Term Goals Short Term Goals Time Frame: Dec 26, 2018 Bathing(FIM): 4 Lower Body Dressing(FIM): 3 Toileting(FIM): 3 Transfers (B,C,W/C) (FIM): 4 Toilet/Commode Transfer(FIM): 4 Additional Short Term Goals: 1-Demonstrate ADL Tasks, 2-Verbalize Understanding, 3-ImproveStrength/Re 1=Demonstrate adherence to instructed precautions during ADL tasks. 2=Patient will verbalize/demonstrate understanding of assistive devices/modifications for ADL. 3=Patient will improve strength/tolerance for activity to enable patient to perform ADL's. OT Shelter Goals Shelter Goals Time Frame: Jan 09, 2019 Eating (FIM): 6 Eating (QC): 6 Groomin Oral Hygiene (QC): 6 Bathing(FIM): 5 Shower/Bathe Self (QC): 5 Upper Body Dressing(FIM): 6 Upper Body Dressing (QC): 6 Lower Body Dressing(FIM): 5 Lower Body Dressing (QC): 5 On/Off Footwear (QC): 5 Toileting(FIM): 5 Toileting Hygiene (QC): 5 Toilet/Commode Transfer(FIM): 6 Toilet/Commode Transfer (QC): 6 Shower Transfer(FIM): 5 Additional Goals: 1-Demonstrate ADL Tasks, 2-Verbalize Understanding, 3-ImproveStrength/Re 1=Demonstrate adherence to instructed precautions during ADL tasks. 2=Patient will verbalize/demonstrate understanding of assistive devices/modifications for ADL. 3=Patient will improve strength/tolerance for activity to enable patient to per form ADL's. OT Education/Plan Discharge Recommendations Plan/Recommendations: Continue POC Treatment Plan/Plan of Care Patient would benefit from OT for education, treatment and training to promote independence in ADL's, mobility, safety and/or upper extremity function for ADL's. Plan of Care: ADL Retraining, Functional Mobility, Group Exercise/Act as Ind, UE Funct Exercise/Act Treatment Duration: Jan 09, 2019 Frequency: At least 5 of 7 days/Wk (IRF) Estimated Hrs Per Day: 1.5 hours per day Agreement: Yes Rehab Potential: Fair Time/GCodes Start Time: 13:15 Stop Time: 13:45 Total Time Billed (hr/min): 30 Billed Treatment Time 1 visit, ADLx2(30minutes) DEBRA TORRES OT Dec 16, 2018 13:57
--- NOTE | 2018-12-16 14:11 | Physical Therapy Daily Note ---
PT Daily Note-Current Subjective Patient sitting EOB pre tx, agrees to PT, has 8/10 pain. Appearance Patient sitting EOB post tx with nurse call, phone, tray, all needs met. Mental Status Patient Orientation: Person, Place, Situation Transfers Therapy Code Descriptions/Definitions Functional [place] Measure: 0=Not Assessed/NA 4=Minimal Assistance 1=Total Assistance 5=Supervision or Setup 2=Maximal Assistance 6=Modified [place] 3=Moderate Assistance 7=Complete [place] Therapy Quality Codes: 6 Independent with activity with or without an assistive device 5 Patient requires set up or clean up by helper. Patient completes activity by themselves 4 Supervision or touching assist (CGA). [place] provide cues , steadying assist 3 The helper provides less than half the effort to complete the activity 2 The helper provides more than half the effort to complete the activity 1 Dependent. The helper does all the effort to complete an activity 7 Patient refused to complete or attempt activity 9 The patient did not perform the activity before the current illness or injury 88 Not attempted due to Medical conditions or safety concerns Transfers (B, C, W/C) (FIM): 5 Sit to/from Stand: 5 Bed to/from Chair: 5 Gait Training Gait (FIM): 2 Distance: 100'x2 Gait Level of Assist: 5 Gait Persons Needed: 1 Gait Assistive Device: FWW Close SBA, uncoordinated (but improved) steps, slow, antalgic Exercises NuStep Minutes: 10 NuStep Workload: 4 Treatments ambulation, functional strengthening (patient wanted to use the NuStep because she felt it would be better because she had more pain) Assessment Current Status: Fair Progress Improving ambulation. Patient refuses to bear back brace. PT Short Term Goals Short Term Goals Time Frame: Dec 19, 2018 Transfers (B,C,W/C) (FIM): 4 Gait (FIM): 1 Gait Distance Comment: 20' Gait Level of Assist: 4 Gait Assistive Device: FWW Wheelchair Distance: 50' PT Mold Shaker Goals M[facility] Goals PT Mold Shaker Goals Time Frame: Jan 02, 2019 Transfers (B,C,W/C) (FIM): 5 Sit to Lying (QC): 6 Lying-Sitting on Side/Bed(QC): 6 Sit to Stand (QC): 4 Rollin Roll Left to Right (QC): 6 Chair/Odt-lj-Jviaz Xfer(QC): 4 Car Transfer (QC): 4 Gait (FIM): 5 Distance: 150' Walk 10 feet (QC): 4 Walk 10ft-Uneven Surface(QC): 4 Walk 50ft with 2 Turns (QC): 4 Walk 150 ft (QC): 4 Gait Level of Assist: 5 Gait Assistive Device: FWW Stairs (FIM): 2 # of Steps: 4 1 Step (curb) (QC): 4 4 Steps (QC): 4 Stairs Level Of Assist: 4 PT Plan Problem List Problem List: Activity Tolerance, Functional Strength, Safety, Balance, Gait, Transfer, Bed Mobility Treatment/Plan Treatment Plan: Continue Plan of Care Treatment Plan: Bed Mobility, Concurrent Therapy, Education, Functional Activity Re, Functional Strength, Group Therapy, Gait, Safety, Therapeutic Exercise, Transfers Treatment Duration: Jan 02, 2019 Frequency: At least 5 of 7 days/Wk (IRF) Estimated Hrs Per Day: 1.5 hours per day Patient and/or Family Agrees t: Yes Safety Risks/Education Patient Education: Gait Training, Transfer Techniques, Correct Positioning, Safety Issues Teaching Recipient: Patient Teaching Methods: Demonstration, Discussion Response to Teaching: Reinforcement Needed Time/GCodes Time In: 1345 Time Out: 1415 Total Billed Treatment Time: 30 Total Billed Treatment 1 visit EX 10' GT 20' HAYES ARELLANO PT Dec 16, 2018 14:11
[2018-12-16 15:57] VITALS: BP 151/79
[2018-12-16] MEDS: MONTELUKAST 10 MG (SINGULAIR) TAB PO SCH (20:23)
[2018-12-16] MEDS: clonazePAM 0.5 MG (KlonoPIN) TAB PO SCH (20:23)
[2018-12-17] MEDS: oxyCODONE/APAP 5/325MG (PERCOCET 5) TABLET PO PRN ×4 (04:52→21:33)
[2018-12-17] MEDS: DICLOFENAC 1% GEL 100 GM (VOLTAREN) TUBE TOP PRN ×2 (05:20→21:34)
[2018-12-17 05:50] VITALS: BP 150/76
[2018-12-17] MEDS: PANTOPRAZOLE 40 MG (PROTONIX) TAB PO SCH (06:23)
[2018-12-17] MEDS: VENlafaxine XR 75 MG (EFFEXOR XR) CAP PO SCH (06:23)
[2018-12-17] MEDS: CALCIUM CARB + VIT D 600 MG (CALCARB + D) TAB PO SCH ×2 (06:23→16:47)
[2018-12-17] MEDS: predniSONE 20 MG TAB PO SCH (06:23)
[2018-12-17] MEDS: RT-ALBUTEROL/IPRATROPIUM 3 ML (DUONEB) VIAL IH PRN (08:29)
[2018-12-17] MEDS: RT-ADVAIR HFA 115/21 MCG PER PUFF IH SCH ×2 (08:30→20:44)
[2018-12-17] MEDS ORDERED: IRON SUCROSE 200 MG/10 ML (VENOFER) VIAL IV SCH (09:00)
--- NOTE | 2018-12-17 09:05 | PM&R Progress Note ---
Subjective HPI/CC On Admission Date Seen by Provider: Dec 17, 2018 Time Seen by Provider: 09:15 CC: Spinal cord decompression HPI: From acute care hospital course: Hospital course: Patient had a lengthy hospital course for 9 days after she was admitted for exacerbation of COPD and pneumonia when she became hypoxic and wheezing unable to undergo spinal cord decompression from overfill of cement with kyphoplasty done a few weeks prior. She was transferred from [facility] and Dr. Hobson was consulted. Chest x-ray revealed infiltrate so IV antibiotics were empirically placed. Nebulizer treatments were started along with oxygen supplementation along with IV steroids. Patient was able to undergo spinal cord surgery on 12/09/[address] Goldstein and Dr. Noland. The surgery was a success. IV antibiotics were s witched to oral antibiotics along with tapering of steroids and maintained on nebulizer treatments and oxygen supplementation. Severe postop constipation required multiple meds were still in process at time of transfer to inpatient rehabilitation. Patient doing much better today, small BM's after multiple meds and SSE and still working on that process. Pain is well controlled. Psych consult due to depression and h/o suicidal attempts. PLOF was independent for ambulation and ADL's. Will focus on improving strength and return bowel function to normal and monitor lungs for severe COPD. Subjective/Events-last exam She is incontinent but that is improving. Anxiety was evaluated by psych consultation today at 11:00. Will switch to oral iron after one dose of Venofer is initiated due to poor venous access. Voltaren gel really helps her B/L trapezius muscle spasms. Brace is ordered but she really doesn't like to wear it. Discharge planned for early next week. Conferred with RN Reviewed therapy notes Dramatic improvement since admit Review of Systems General: Fatigue Musculoskeletal: back pain Objective Exam Vital Signs Vital Signs Date Time Temp Pulse Resp B/P (MAP) Pulse Ox O2 Delivery O2 Flow Rate FiO2 12/17/18 17:20 98.6 81 16 150/76 (100) 94 Room Air Capillary Refill : General Appearance: No Apparent Distress, WD/WN, Chronically ill HEENT: PERRL/EOMI, Normal ENT Inspection, Pharynx Normal, Moist Mucous Membranes Neck: Full Range of Motion, Normal Inspection, Non Tender, Supple Respiratory: Chest Non Tender, Lungs Clear, Normal Breath Sounds, No Accessory Muscle Use, No Respiratory Distress Cardiovascular: Regular Rate, Rhythm, No Edema, No Gallop, No JVD, No Murmur Gastrointestinal: Normal Bowel Sounds, No Organomegaly, No Pulsatile Mass, Non Tender, Soft Back: Decreased Range of Motion, Muscle Spasm, Vertebral Tenderness Extremity: Normal Capillary Refill, Normal Inspection, Normal Range of Motion, Non Tender, No Calf Tenderness, No Pedal Edema Neurologic/Psychiatric: Alert, Oriented x3, No Motor/Sensory Deficits, Normal 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 FIM Transfers Therapy Code Descriptions/Definitions Functional [place] Measure: 0=Not Assessed/NA 4=Minimal Assistance 1=Total Assistance 5=Supervision or Setup 2=Maximal Assistance 6=Modified [place] 3=Moderate Assistance 7=Complete [place] Therapy Quality Codes: 6 Independent with activity with or without an assistive device 5 Patient requires set up or clean up by helper. Patient completes activity by themselves 4 Supervision or touching assist (CGA). [place] provide cues , steadying assist 3 The helper provides less than half the effort to complete the activity 2 The helper provides more than half the effort to complete the activity 1 Dependent. The helper does all the effort to complete an activity 7 Patient refused to complete or attempt activity 9 The patient did not perform the activity before the current illness or injury 88 Not attempted due to Medical conditions or safety concerns Transfers (B, C, W/C) (FIM): 5 Scootin Rollin Roll Left to Right (QC): 5 Supine to/from Sit: 6 Sit to/from Stand: 5 Sit to Lying (QC): 5 Sit to Stand (QC): 4 Chair/Jgs-pg-Qmlbt Xfer(QC): 4 Bed to/from Chair: 5 Car Transfer (QC): 2 Gait Training Does the Patient Walk?: Yes Gait (FIM): 2 Distance (FIM): 9=945-06 ft Distance: 100'x2 Walk 10 feet (QC): 4 Walk 50 ft with 2 Turns(QC): 4 Gait Level of Assist: 5 Gait Persons Needed: 1 Gait Assistive Device: FWW Wheelchair Training Does the Pt Use a Wheelchair?: Yes Wheelchair (FIM): 2 Distance: 50' Wheelchair Level of Assist: 5 Type of Wheelchair: Manual Mental Status/Objective Comprehension: 7 Expression: 7 Social Interaction: 7 Problem Solvin Memory: 7 ADL-Treatment Feedin (Set up by report) Eating (QC): 5 Groomin Oral Hygiene (QC): 5 Bathin (Min assist to bathe self in shower.) Shower/Bathe Self (QC): 4 Upper Extremity Dressin Upper Body Dressing (QC): 4 Lower Extremity Dressin (Pt. able to doff/don socks, underwear and pants, with assist to pull pants up in back. Assist needed to don shoes.) Lower Body Dressing (QC): 3 On/Off Footwear (QC): 4 Toiletin Toileting Hygiene (QC): 6 Toilet/Commode Transfer: 5 Toilet Transfer (QC): 5 Shower: 4 Assessment/Plan Assessment and Plan Assess & Plan/Chief Complaint Assessment: Spinal cord decompression POD # 8 Kyphoplasty overfill causing spinal cord injury Severe COPD Smoker Depression w/h/o suicidal attempts HTN Post op constipation Plan: Monitor lungs and emotional status closely BM regimen Monitor BP Psych consult today Iron infusions to begin and checking level prior to starting infusion Complete abx and steroids and lungs are clear today 12/14/18 Dramatic improvement overall and patient is thrilled with her progress (1) Spinal cord compression (2) Osteoporosis (3) Anxiety (4) Respiratory insufficiency (5) Hypoxia (6) GERD (gastroesophageal reflux disease) (7) COPD exacerbation (8) Pneumonia involving right lung (9) Compression fracture of T8 vertebra (10) S/P kyphoplasty (11) Smoker ALEYDA MONROY DO Dec 17, 2018 09:05
[2018-12-17] MEDS ORDERED: guaiFENesin/CODEINE (ROBITUSSIN AC) 10ML UDC PO PRN (09:45)
[2018-12-17] MEDS: meTOprolol TARTRATE 25 MG (LOPRESSOR) TABLET PO SCH ×2 (09:58→21:33)
[2018-12-17] MEDS: ATORVASTATIN 10 MG (LIPITOR) TABLET PO SCH (09:59)
[2018-12-17] MEDS: lisINopril 20 MG (PRINIVIL) TABLET PO SCH (09:59)
[2018-12-17] MEDS: LORATADINE (CLARITIN) 10 MG TAB PO SCH (09:59)
[2018-12-17] MEDS: MELOXICAM 7.5 MG (MOBIC) TABLET PO SCH (09:59)
[2018-12-17] MEDS: SENNA W/DOCUSATE (SENOKOT S) TABLET PO SCH ×2 (10:01→21:33)
--- NOTE | 2018-12-17 10:20 | Occupational Ther Daily Note ---
OT Current Status-Daily Note Subjective Pt alert, sitting up in bed. Pt agrees to therapy. Pt c/o back pain, pt states that she thinks it is from the cough she has. Nrsg notified and pain meds given, ointment applied. Mental Status/Objective Patient Orientation: Person, Place, Time, Situation Therapy Code Descriptions/Definitions Functional [place] Measure: 0=Not Assessed/NA 4=Minimal Assistance 1=Total Assistance 5=Supervision or Setup 2=Maximal Assistance 6=Modified [place] 3=Moderate Assistance 7=Complete [place] Attachments: IV ADL-Treatment Pt agrees to shower. IV and surgical site covered to prohibit moisture in area. SBA for functional transfers using FWW. Pt complete own bathing using long handle sponge, grabbars, hand held shower and shower bench. After set up, pt completed own dressing. Pt stated that she had already completed grooming prior to OT session. Pt takes increased time to complete all activities due to fr equent recovery breaks taken. Therapy Code Descriptions/Definitions Functional [place] Measure: 0=Not Assessed/NA 4=Minimal Assistance 1=Total Assistance 5=Supervision or Setup 2=Maximal Assistance 6=Modified [place] 3=Moderate Assistance 7=Complete [place] Therapy Quality Codes: 6 Independent with activity with or without an assistive device 5 Patient requires set up or clean up by helper. Patient completes activity by themselves 4 Supervision or touching assist (CGA). [place] provide cues , steadying assist 3 The helper provides less than half the effort to complete the activity 2 The helper provides more than half the effort to complete the activity 1 Dependent. The helper does all the effort to complete an activity 7 Patient refused to complete or attempt activity 9 The patient did not perform the activity before the current illness or injury 88 Not attempted due to Medical conditions or safety concerns Bathing (FIM): 5 Bathing Location: L Arm, R Arm, L Upper Leg, R Upper Leg, L Lower Leg (including foot), R Lower Leg (including foot), Chest, Abdomen, Buttocks, Perineal Area Shower/Bathe Self (QC): 4 Upper Body (FIM): 5 Upper Body Dressing (QC): 5 Lower Body Dressing (FIM): 5 Lower Body Dressing (QC): 5 On/Off Footwear (QC): 5 Shower Transfer(FIM): 5 Other Treatment Pt propelled w/c to<-->from gym. Arm bike completed with frequent recovery breaks due to burning sensation at upper back. Initially set for 15 min completed in 20 min without resistance. After therapy, pt sitting in w/c in room with nrsg present. All needs met in room. OT Short Term Goals Short Term Goals Time Frame: Dec 26, 2018 Bathing(FIM): 4 Lower Body Dressing(FIM): 3 Toileting(FIM): 3 Transfers (B,C,W/C) (FIM): 4 Toilet/Commode Transfer(FIM): 4 Additional Short Term Goals: 1-Demonstrate ADL Tasks, 2-Verbalize Understanding, 3-ImproveStrength/Re 1=Demonstrate adherence to instructed precautions during ADL tasks. 2=Patient will verbalize/demonstrate understanding of assistive devices/mo difications for ADL. 3=Patient will improve strength/tolerance for activity to enable patient to perform ADL's. OT Web Analyst Goals [facility] Goals Time Frame: Jan 09, 2019 Eating (FIM): 6 Eating (QC): 6 Groomin Oral Hygiene (QC): 6 Bathing(FIM): 5 Shower/Bathe Self (QC): 5 Upper Body Dressing(FIM): 6 Upper Body Dressing (QC): 6 Lower Body Dressing(FIM): 5 Lower Body Dressing (QC): 5 On/Off Footwear (QC): 5 Toileting(FIM): 5 Toileting Hygiene (QC): 5 Toilet/Commode Transfer(FIM): 6 Toilet/Commode Transfer (QC): 6 Shower Transfer(FIM): 5 Additional Goals: 1-Demonstrate ADL Tasks, 2-Verbalize Understanding, 3- ImproveStrength/Re 1=Demonstrate adherence to instructed precautions during ADL tasks. 2=Patient will verbalize/demonstrate understanding of assistive devices/modifications for ADL. 3=Patient will improve strength/tolerance for activity to enable patient to perform ADL's. OT Education/Plan Problem List/Assessment Assessment: Decreased Activ Tolerance, Decreased UE Strength, Impaired Self- Care Skills Discharge Recommendations Plan/Recommendations: Continue POC Treatment Plan/Plan of Care Patient would benefit from OT for education, treatment and training to promote independence in ADL's, mobility, safety and/or upper extremity function for AD L's. Plan of Care: ADL Retraining, Functional Mobility, Group Exercise/Act as Ind, UE Funct Exercise/Act Treatment Duration: Jan 09, 2019 Frequency: At least 5 of 7 days/Wk (IRF) Estimated Hrs Per Day: 1.5 hours per day Agreement: Yes Rehab Potential: Fair Time/GCodes Start Time: 08:30 Stop Time: 10:00 Total Time Billed (hr/min): 90 Billed Treatment Time 1 visit-ADL 5 (70 min) EX 1 (20 min) KAROLYN ANNE Dec 17, 2018 10:20
--- NOTE | 2018-12-17 11:01 | Physical Therapy Daily Note ---
PT Daily Note-Current Subjective Pt. sitting EOB, agrees to Rx. As previously reported pt. refuses use of back brace. Pt. states she is really anxious to go home and has plenty of help there Pain Numeric Pain Scale: 3 Location: Medial Location Body Site: Back Pain Description: Ache Mental Status Patient Orientation: Normal For Age very talkative, enjoyed visiting during rx Transfers Therapy Code Descriptions/Definitions Functional [place] Measure: 0=Not Assessed/NA 4=Minimal Assistance 1=Total Assistance 5=Supervision or Setup 2=Maximal Assistance 6=Modified [place] 3=Moderate Assistance 7=Complete [place] Therapy Quality Codes: 6 Independent with activity with or without an assistive device 5 Patient requires set up or clean up by helper. Patient completes activity by themselves 4 Supervision or touching assist (CGA). [place] provide cues , steadying assist 3 The helper provides less than half the effort to complete the activity 2 The helper provides more than half the effort to complete the activity 1 Dependent. The helper does all the effort to complete an activity 7 Patient refused to complete or attempt activity 9 The patient did not perform the activity before the current illness or injury 88 Not attempted due to Medical conditions or safety concerns Transfers (B, C, W/C) (FIM): 6 Scootin Rollin Supine to/from Sit: 6 Sit to/from Stand: 6 Bed to/from Chair: 6 reviewed log roll and TRFs using hands sit to stand Gait Training Does the Patient Walk?: Yes Gait (FIM): 2 Distance (FIM): 6=349-25 ft (100x3) Gait Level of Assist: 4 Gait Persons Needed: 1 Gait Assistive Device: FWW needs instruction and education regarding wider BETTY shruti during turns, Pt. with externally rotated bilat hips but narrow BETTY at times and some cross overs Wheelchair Training Does the Pt Use a Wheelchair?: Yes Wheelchair (FIM): 2 Wheelchair Distance: 3=354-61 ft (75x2) Wheelchair Level of Assist: 5 Type of Wheelchair: Manual uses feet and hands Exercises Supine Ex: Ankle pumps, Quad Set, Rolling, Glut sets, Heel Slides, Short Arc Quads, Scooting, Hip abd/add Supine Reps: 15 Seated Therapy Exercises: Ankle pumps, Sit to stand, Long arc quads, Hip flexion, Hip abd/add Seated Reps: 15 Standing: Hip Abduction, Heel/toe raises, Marching Standing Reps: 12 NuStep Minutes: 10 NuStep Workload: 4 Assessment Current Status: Good Progress PT Short Term Goals Short Term Goals Time Frame: Dec 19, 2018 Transfers (B,C,W/C) (FIM): 4 Gait (FIM): 1 Gait Distance Comment: 20' Gait Level of Assist: 4 Gait Assistive Device: FWW Wheelchair Distance: 50' PT Cargo Tank Mechanic Goals Alf Goals PT Alf Goals Time Frame: Jan 02, 2019 Transfers (B,C,W/C) (FIM): 5 Sit to Lying (QC): 6 Lying-Sitting on Side/Bed(QC): 6 Sit to Stand (QC): 4 Rollin Roll Left to Right (QC): 6 Chair/Noq-xt-Stsos Xfer(QC): 4 Car Transfer (QC): 4 Gait (FIM): 5 Distance: 150' Walk 10 feet (QC): 4 Walk 10ft-Uneven Surface(QC): 4 Walk 50ft with 2 Turns (QC): 4 Walk 150 ft (QC): 4 Gait Level of Assist: 5 Gait Assistive Device: FWW Stairs (FIM): 2 # of Steps: 4 1 Step (curb) (QC): 4 4 Steps (QC): 4 Stairs Level Of Assist: 4 PT Plan Treatment/Plan Treatment Plan: Continue Plan of Care Treatment Plan: Bed Mobility, Concurrent Therapy, Education, Functional Activity Re, Functional Strength, Group Therapy, Gait, Safety, Therapeutic Exercise, Transfers Treatment Duration: Jan 02, 2019 Frequency: At least 5 of 7 days/Wk (IRF) Estimated Hrs Per Day: 1.5 hours per day Patient and/or Family Agrees t: Yes Safety Risks/Education Patient Education: Gait Training, Transfer Techniques, Correct Positioning, W/C Management, Disease Process, Safety Issues Teaching Recipient: Patient Teaching Methods: Demonstration, Discussion Response to Teaching: Verbalize Understanding, Return Demonstration, Reinforcement Needed Time/GCodes Time In: 1000 Time Out: 1100 Total Billed Treatment Time: 60 Total Billed Treatment 1,EX30m,wch15m,GT15m G Codes Necessary: FRANCES Lomeli LABOR SERVICE REPRESENTATIVE Dec 17, 2018 11:01
--- NOTE | 2018-12-17 13:29 | Physical Therapy Daily Note ---
PT Daily Note-Current Subjective Pt. agrees to bed exercises but is hesitant to trial the new back brace she recieved earlier today. Pt. does eventually agree and states "its alright but I probably wont wear it" Pain Numeric Pain Scale: 7 Location: Medial Location Body Site: Back Pain Description: Ache Mental Status Patient Orientation: Person, Place, Time, Situation Attachments: Other-See Comments (back brace trial) Transfers Therapy Code Descriptions/Definitions Functional [place] Measure: 0=Not Assessed/NA 4=Minimal Assistance 1=Total Assistance 5=Supervision or Setup 2=Maximal Assistance 6=Modified [place] 3=Moderate Assistance 7=Complete [place] Therapy Quality Codes: 6 Independent with activity with or without an assistive device 5 Patient requires set up or clean up by helper. Patient completes activity by themselves 4 Supervision or touching assist (CGA). [place] provide cues , steadying assist 3 The helper provides less than half the effort to complete the activity 2 The helper provides more than half the effort to complete the activity 1 Dependent. The helper does all the effort to complete an activity 7 Patient refused to complete or attempt activity 9 The patient did not perform the activity before the current illness or injury 88 Not attempted due to Medical conditions or safety concerns Transfers (B, C, W/C) (FIM): 6 Scootin Rollin Exercises Supine Ex: Ankle pumps, Quad Set, Rolling, Glut sets, Heel Slides, Short Arc Quads, Scooting, Hip abd/add Supine Reps: 20 Treatments pt. sat EOB , aspen back brace was demonstrated and applied. pt. was annoyed by the velcro straps : "so many" and the fact that her breasts are difficult to lift up so she can get the brace on . Pt. wore the brace briefly for gait 75 ft FWW then took it off to get in bed. Assessment Current Status: Good Progress PT Short Term Goals Short Term Goals Time Frame: Dec 19, 2018 Transfers (B,C,W/C) (FIM): 4 Gait (FIM): 1 Gait Distance Comment: 20' Gait Level of Assist: 4 Gait Assistive Device: FWW Wheelchair Distance: 50' PT Air Bag Stripper Goals Air Bag Stripper Goals PT Air Bag Stripper Goals Time Frame: Jan 02, 2019 Transfers (B,C,W/C) (FIM): 5 Sit to Lying (QC): 6 Lying-Sitting on Side/Bed(QC): 6 Sit to Stand (QC): 4 Rollin Roll Left to Right (QC): 6 Chair/Khf-ef-Ongqh Xfer(QC): 4 Car Transfer (QC): 4 Gait (FIM): 5 Distance: 150' Walk 10 feet (QC): 4 Walk 10ft-Uneven Surface(QC): 4 Walk 50ft with 2 Turns (QC): 4 Walk 150 ft (QC): 4 Gait Level of Assist: 5 Gait Assistive Device: FWW Stairs (FIM): 2 # of Steps: 4 1 Step (curb) (QC): 4 4 Steps (QC): 4 Stairs Level Of Assist: 4 PT Plan Treatment/Plan Treatment Plan: Continue Plan of Care Treatment Plan: Bed Mobility, Concurrent Therapy, Education, Functional Activity Re, Functional Strength, Group Therapy, Gait, Safety, Therapeutic Exercise, Transfers Treatment Duration: Jan 02, 2019 Frequency: At least 5 of 7 days/Wk (IRF) Estimated Hrs Per Day: 1.5 hours per day Patient and/or Family Agrees t: Yes Safety Risks/Education Patient Education: Gait Training, Transfer Techniques, Correct Positioning, Reviewed Don/Doff Brace, Safety Issues Teaching Recipient: Patient Teaching Methods: Demonstration, Discussion Response to Teaching: Verbalize Understanding, Return Demonstration, Reinforcement Needed Time/GCodes Time In: 1300 Time Out: 1330 Total Billed Treatment Time: 30 Total Billed Treatment 1,EX15m,FA15m G Codes Necessary: FRANCES Lomeli POTATO SPOTTER Dec 17, 2018 13:29
--- NOTE | 2018-12-17 15:25 | NUR ---
SALES RESEARCH ANALYST met with patient to review team conference summary. As patient is performing bed mobility and transfers with modified independence; and bathing, dressing, sit to stand at standby assistance team is recommended patient proceed with discharge home on . Goals indicated over the next several days are to advance patient to modified independent with all activities. RN reports patient's pain is better managed and TLSO brace was delivered today. Team and recommended home health services for PT, OT and RN; however, patient wishes to utilize outpatient therapy at [facility]. SALES RESEARCH ANALYST will discuss this with Dr. Prabhakar. SALES RESEARCH ANALYST will continue to follow.
[2018-12-17 17:20] VITALS: BP 150/76
[2018-12-17] MEDS: clonazePAM 0.5 MG (KlonoPIN) TAB PO SCH (21:33)
[2018-12-17] MEDS: MONTELUKAST 10 MG (SINGULAIR) TAB PO SCH (21:33)
[2018-12-18] MEDS: DICLOFENAC 1% GEL 100 GM (VOLTAREN) TUBE TOP PRN (03:43)
[2018-12-18] MEDS: oxyCODONE/APAP 5/325MG (PERCOCET 5) TABLET PO PRN ×3 (03:43→21:28)
[2018-12-18] MEDS: RT-ALBUTEROL/IPRATROPIUM 3 ML (DUONEB) VIAL IH PRN ×2 (03:51→16:44)
[2018-12-18 05:06] VITALS: BP 166/74
[2018-12-18] MEDS: PANTOPRAZOLE 40 MG (PROTONIX) TAB PO SCH (06:05)
[2018-12-18] MEDS: VENlafaxine XR 75 MG (EFFEXOR XR) CAP PO SCH (06:06)
[2018-12-18] MEDS: predniSONE 20 MG TAB PO SCH (06:06)
[2018-12-18] MEDS: CALCIUM CARB + VIT D 600 MG (CALCARB + D) TAB PO SCH ×2 (06:06→17:43)
[2018-12-18] MEDS: RT-ADVAIR HFA 115/21 MCG PER PUFF IH SCH ×2 (06:54→21:07)
[2018-12-18] MEDS: ACETAMINOPHEN 500 MG TAB (TYLENOL) PO PRN (07:58)
--- NOTE | 2018-12-18 07:58 | PM&R Progress Note ---
Subjective HPI/CC On Admission Date Seen by Provider: Dec 18, 2018 Time Seen by Provider: 07:30 CC: Spinal cord decompression HPI: From acute care hospital course: Hospital course: Patient had a lengthy hospital course for 9 days after she was admitted for exacerbation of COPD and pneumonia when she became hypoxic and wheezing unable to undergo spinal cord decompression from overfill of cement with kyphoplasty done a few weeks prior. She was transferred from [facility] and Dr. Hobson was consulted. Chest x-ray revealed infiltrate so IV antibiotics were empirically placed. Nebulizer treatments were started along with oxygen supplementation along with IV steroids. Patient was able to undergo spinal cord surgery on 12/09/[address] Goldstein and Dr. Noland. The surgery was a success. IV antibiotics were s witched to oral antibiotics along with tapering of steroids and maintained on nebulizer treatments and oxygen supplementation. Severe postop constipation required multiple meds were still in process at time of transfer to inpatient rehabilitation. Patient doing much better today, small BM's after multiple meds and SSE and still working on that process. Pain is well controlled. Psych consult due to depression and h/o suicidal attempts. PLOF was independent for ambulation and ADL's. Will focus on improving strength and return bowel function to normal and monitor lungs for severe COPD. Subjective/Events-last exam Pt very concerned, just overall social issues. Has a lot of anxiety. Likely will be ad aren up to the bathroom. Tylenol was given for headache. Bowels are moving. Lungs remain stable, and clear. Remains on oxygen. Discharge planned for Saturday Conferred with RN Reviewed therapy notes Dramatic improvement since admit Review of Systems General: Malaise Objective Exam Vital Signs Vital Signs Date Time Temp Pulse Resp B/P (MAP) Pulse Ox O2 Delivery O2 Flow Rate FiO2 12/18/18 16:45 92 Room Air 12/18/18 15:56 98.5 80 18 130/69 (89) Capillary Refill : General Appearance: No Apparent Distress, WD/WN, Chronically ill HEENT: PERRL/EOMI, Normal ENT Inspection, Pharynx Normal, Moist Mucous Membranes Neck: Full Range of Motion, Normal Inspection, Non Tender, Supple Respiratory: Chest Non Tender, Lungs Clear, Normal Breath Sounds, No Accessory Muscle Use, No Respiratory Distress Cardiovascular: Regular Rate, Rhythm, No Edema, No Gallop, No JVD, No Murmur Gastrointestinal: Normal Bowel Sounds, No Organomegaly, No Pulsatile Mass, Non Tender, Soft Back: Decreased Range of Motion, Muscle Spasm, Vertebral Tenderness Extremity: Normal Capillary Refill, Normal Inspection, Normal Range of Motion, Non Tender, No Calf Tenderness, No Pedal Edema Neurologic/Psychiatric: Alert, Oriented x3, No Motor/Sensory Deficits, Normal Mood/Affect, screen printing supervisor II-XII Norm as Tested, Motor Weakness (generalized weakness upper extremities, 3/5 lower legs) Skin: Normal Color, Warm/Dry Lymphatic: No Adenopathy Results/Procedures Lab Patient resulted labs reviewed. FIM Transfers Therapy Code Descriptions/Definitions Functional [place] Measure: 0=Not Assessed/NA 4=Minimal Assistance 1=Total Assistance 5=Supervision or Setup 2=Maximal Assistance 6=Modified [place] 3=Moderate Assistance 7=Complete [place] Therapy Quality Codes: 6 Independent with activity with or without an assistive device 5 Patient requires set up or clean up by helper. Patient completes activity by themselves 4 Supervision or touching assist (CGA). [place] provide cues , steadying assist 3 The helper provides less than half the effort to complete the activity 2 The helper provides more than half the effort to complete the activity 1 Dependent. The helper does all the effort to complete an activity 7 Patient refused to complete or attempt activity 9 The patient did not perform the activity before the current illness or injury 88 Not attempted due to Medical conditions or safety concerns Transfers (B, C, W/C) (FIM): 6 Scootin Rollin Roll Left to Right (QC): 5 Supine to/from Sit: 6 Sit to/from Stand: 6 Sit to Lying (QC): 5 Sit to Stand (QC): 4 Chair/Uwn-pj-Enmud Xfer(QC): 4 Bed to/from Chair: 6 Car Transfer (QC): 2 Gait Training Does the Patient Walk?: Yes Gait (FIM): 2 Distance (FIM): 0=958-07 ft (100x3) Distance: 100'x2 Walk 10 feet (QC): 4 Walk 50 ft with 2 Turns(QC): 4 Gait Level of Assist: 4 Gait Persons Needed: 1 Gait Assistive Device: FWW Wheelchair Training Does the Pt Use a Wheelchair?: Yes Wheelchair (FIM): 2 Wheelchair Distance: 9=738-30 ft (75x2) Distance: 50' Wheelchair Level of Assist: 5 Type of Wheelchair: Manual Mental Status/Objective Comprehension: 7 Expression: 7 Social Interaction: 7 Problem Solvin Memory: 7 ADL-Treatment Feedin (Set up by report) Eating (QC): 5 Groomin Oral Hygiene (QC): 5 Bathin Bathing Location: L Arm, R Arm, L Upper Leg, R Upper Leg, L Lower Leg (including foot), R Lower Leg (including foot), Chest, Abdomen, Buttocks, Perineal Area Shower/Bathe Self (QC): 4 Upper Extremity Dressin Upper Body Dressing (QC): 5 Lower Extremity Dressin Lower Body Dressing (QC): 5 On/Off Footwear (QC): 4 (with adaptive equipment) Toiletin Toileting Hygiene (QC): 6 Toilet/Commode Transfer: 5 Toilet Transfer (QC): 5 Shower: 5 Assessment/Plan Assessment and Plan Assess & Plan/Chief Complaint Assessment: Spinal cord decompression POD # 9 Kyphoplasty overfill causing spinal cord injury Severe COPD Smoker Depression w/h/o suicidal attempts HTN Post op constipation Plan: Monitor lungs and emotional status closely BM regimen Monitor BP Psych consult appreciated Iron infusions to begin and checking level prior to starting infusion Complete abx and steroids and lungs are clear today 12/14/18 Dramatic improvement overall and patient is thrilled with her progress (1) Spinal cord compression (2) Osteoporosis (3) Anxiety (4) Respiratory insufficiency (5) Hypoxia (6) GERD (gastroesophageal reflux disease) (7) COPD exacerbation (8) Pneumonia involving right lung (9) Compression fracture of T8 vertebra (10) S/P kyphoplasty (11) Smoker ALEYDA MONROY DO Dec 18, 2018 07:58
[2018-12-18] MEDS: lisINopril 20 MG (PRINIVIL) TABLET PO SCH (08:05)
[2018-12-18] MEDS: LORATADINE (CLARITIN) 10 MG TAB PO SCH (08:06)
[2018-12-18] MEDS: MELOXICAM 7.5 MG (MOBIC) TABLET PO SCH (08:06)
[2018-12-18] MEDS: meTOprolol TARTRATE 25 MG (LOPRESSOR) TABLET PO SCH ×2 (08:06→20:37)
[2018-12-18] MEDS: ATORVASTATIN 10 MG (LIPITOR) TABLET PO SCH (08:06)
[2018-12-18] MEDS: SENNA W/DOCUSATE (SENOKOT S) TABLET PO SCH ×2 (09:18→20:38)
--- NOTE | 2018-12-18 09:20 | Physical Therapy Daily Note ---
PT Daily Note-Current Subjective Patient in bed pre tx, agrees to PT, has 10/10 pain but states that she has already had pain meds, she needs to get dressed and she does so with mod I. Patient continues to refuse to wear her brace. Appearance Patient in bed post tx with nurse call, phone, tray, all needs met. Mental Status Patient Orientation: Person, Place, Situation Transfers Therapy Code Descriptions/Definitions Functional [place] Measure: 0=Not Assessed/NA 4=Minimal Assistance 1=Total Assistance 5=Supervision or Setup 2=Maximal Assistance 6=Modified [place] 3=Moderate Assistance 7=Complete [place] Therapy Quality Codes: 6 Independent with activity with or without an assistive device 5 Patient requires set up or clean up by helper. Patient completes activity by themselves 4 Supervision or touching assist (CGA). [place] provide cues , steadying assist 3 The helper provides less than half the effort to complete the activity 2 The helper provides more than half the effort to complete the activity 1 Dependent. The helper does all the effort to complete an activity 7 Patient refused to complete or attempt activity 9 The patient did not perform the activity before the current illness or injury 88 Not attempted due to Medical conditions or safety concerns Transfers (B, C, W/C) (FIM): 5 Scootin Rollin Supine to/from Sit: 6 Sit to/from Stand: 5 Bed to/from Chair: 5 Gait Training Gait (FIM): 2 Distance: 120'x2 Gait Level of Assist: 5 Gait Persons Needed: 1 Gait Assistive Device: FWW Slow, antalgic ambulation, uncoordinated steps but improved. Some unsteadiness but no LOB. Stair Training Stair Training: Handrails/: 2 handrails Stairs (FIM): 2 #of Steps: 4 Stairs: Pattern: Step to Level of Assist: 4 CGA, cues for foot placement and safety Exercises Seated Therapy Exercises: Ankle pumps, Long arc quads, Hip abd/add (with RTB and pillow) Seated Reps: 20 Standing: Hip Abduction, Heel/toe raises, Marching, Mini squats, Step-ups (10 reps each side) Standing Reps: 15 LAQ alternating for 5 min with 2# ankle weights NuStep Minutes: 15 NuStep Workload: 4 Treatments bed mobility and transfers, dressing, LE exercise, ambulation, stair training Assessment Current Status: Fair Progress improving general mobility and LE strength and coordination PT Short Term Goals Short Term Goals Time Frame: Dec 19, 2018 Transfers (B,C,W/C) (FIM): 4 Gait (FIM): 1 Gait Distance Comment: 20' Gait Level of Assist: 4 Gait Assistive Device: FWW Wheelchair Distance: 50' PT Calculus Professor Goals Snf Goals PT Calculus Professor Goals Time Frame: Jan 02, 2019 Transfers (B,C,W/C) (FIM): 5 Sit to Lying (QC): 6 Lying-Sitting on Side/Bed(QC): 6 Sit to Stand (QC): 4 Rollin Roll Left to Right (QC): 6 Chair/Vdj-jk-Tijec Xfer(QC): 4 Car Transfer (QC): 4 Gait (FIM): 5 Distance: 150' Walk 10 feet (QC): 4 Walk 10ft-Uneven Surface(QC): 4 Walk 50ft with 2 Turns (QC): 4 Walk 150 ft (QC): 4 Gait Level of Assist: 5 Gait Assistive Device: FWW Stairs (FIM): 2 # of Steps: 4 1 Step (curb) (QC): 4 4 Steps (QC): 4 Stairs Level Of Assist: 4 PT Plan Problem List Problem List: Activity Tolerance, Functional Strength, Safety, Balance, Gait, Transfer, Bed Mobility, ROM Treatment/Plan Treatment Plan: Continue Plan of Care Treatment Plan: Bed Mobility, Concurrent Therapy, Education, Functional Activity Re, Functional Strength, Group Therapy, Gait, Safety, Therapeutic Exercise, Transfers Treatment Duration: Jan 02, 2019 Frequency: At least 5 of 7 days/Wk (IRF) Estimated Hrs Per Day: 1.5 hours per day Patient and/or Family Agrees t: Yes Safety Risks/Education Patient Education: Gait Training, Transfer Techniques, Steps, Reviewed Precautions, Correct Positioning, Safety Issues Teaching Recipient: Patient Teaching Methods: Demonstration, Discussion Response to Teaching: Reinforcement Needed Time/GCodes Time In: 0800 Time Out: 0930 Total Billed Treatment Time: 90 Total Billed Treatment 1 visit GT 30' EX 60' HAYES ARELLANO PT Dec 18, 2018 09:20
[2018-12-18 09:21] VITALS: BP 146/70
--- NOTE | 2018-12-18 11:03 | Occupational Ther Daily Note ---
OT Current Status-Daily Note Subjective Pt alert, lying in bed. Pt agrees to therapy. Pt c/o back pain. Pt has received TLSO brace. Pt refused to wear brace stating that it is too restrictive and smashes her breasts. Stated that it was not going home with her. Mental Status/Objective Patient Orientation: Person, Place, Time, Situation Therapy Code Descriptions/Definitions Functional [place] Measure: 0=Not Assessed/NA 4=Minimal Assistance 1=Total Assistance 5=Supervision or Setup 2=Maximal Assistance 6=Modified [place] 3=Moderate Assistance 7=Complete [place] Attachments: IV ADL-Treatment Pt declined shower or changing clothing. Pt stated that she had already completed grooming prior to OT session. Therapy Code Descriptions/Definitions Functional [place] Measure: 0=Not Assessed/NA 4=Minimal Assistance 1=Total Assistance 5=Supervision or Setup 2=Maximal Assistance 6=Modified [place] 3=Moderate Assistance 7=Complete [place] Therapy Quality Codes: 6 Independent with activity with or without an assistive device 5 Patient requires set up or clean up by helper. Patient completes activity by themselves 4 Supervision or touching assist (CGA). [place] provide cues , steadying assist 3 The helper provides less than half the effort to complete the activity 2 The helper provides more than half the effort to complete the activity 1 Dependent. The helper does all the effort to complete an activity 7 Patient refused to complete or attempt activity 9 The patient did not perform the activity before the current illness or injury 88 Not attempted due to Medical conditions or safety concerns Other Treatment Pt takes increased time to complete activities due to decreased activity tolerance needing multiple recovery breaks. Arm bike completed, time set for 15 though with breaks taken time completed was 25 min. Minimal resistance while completing arm bike. 1# wt attached to wrists when completing resistive pegs, 50 each hand. 1# wt with ball toss 15x's, decreased AROM during tasks. 1# hand wts with UE exercises, 2 sets 10 reps and hand wrist exercises 2 sets 10 reps. After therapy, pt lying in bed with call light/phone in reach. All needs met in room. OT Short Term Goals Short Term Goals Time Frame: Dec 26, 2018 Bathing(FIM): 4 Lower Body Dressing(FIM): 3 Toileting(FIM): 3 Transfers (B,C,W/C) (FIM): 4 Toilet/Commode Transfer(FIM): 4 Additional Short Term Goals: 1-Demonstrate ADL Tasks, 2-Verbalize Understanding, 3-ImproveStrength/Re 1=Demonstrate adherence to instructed precautions during ADL tasks. 2=Patient will verbalize/demonstrate understanding of assistive devices/modifications for ADL. 3=Patient will improve strength/tolerance for activity to enable patient to perform ADL's. OT Usp Goals Carbon Capture Power Plant Manager Goals Time Frame: Jan 09, 2019 Eating (FIM): 6 Eating (QC): 6 Groomin Oral Hygiene (QC): 6 Bathing(FIM): 5 Shower/Bathe Self (QC): 5 Upper Body Dressing(FIM): 6 Upper Body Dressing (QC): 6 Lower Body Dressing(FIM): 5 Lower Body Dressing (QC): 5 On/Off Footwear (QC): 5 Toileting(FIM): 5 Toileting Hygiene (QC): 5 Toilet/Commode Transfer(FIM): 6 Toilet/Commode Transfer (QC): 6 Shower Transfer(FIM): 5 Additional Goals: 1-Demonstrate ADL Tasks, 2-Verbalize Understanding, 3-Improv eStrength/Er 1=Demonstrate adherence to instructed precautions during ADL tasks. 2=Patient will verbalize/demonstrate understanding of assistive devices/modifications for ADL. 3=Patient will improve strength/tolerance for activity to enable patient to p erform ADL's. OT Education/Plan Problem List/Assessment Assessment: Decreased Activ Tolerance, Decreased UE Strength Discharge Recommendations Plan/Recommendations: Continue POC Treatment Plan/Plan of Care Patient would benefit from OT for education, treatment and training to promote independence in ADL's, mobility, safety and/or upper extremity function for ADL's. Plan of Care: ADL Retraining, Functional Mobility, Group Exercise/Act as Ind, UE Funct Exercise/Act Treatment Duration: Jan 09, 2019 Frequency: At least 5 of 7 days/Wk (IRF) Estimated Hrs Per Day: 1.5 hours per day Agreement: Yes Rehab Potential: Fair Time/GCodes Start Time: 09:30 Stop Time: 11:00 Total Time Billed (hr/min): 90 Billed Treatment Time 1 visit-EX 5 (70 min) FA 1 (20 min) KAROLYN ANNE Dec 18, 2018 11:03
[2018-12-18] MEDS: FERROUS SULF 325 MG (IRON) TAB PO SCH (14:22)
[2018-12-18 15:56] VITALS: BP 130/69
--- NOTE | 2018-12-18 18:37 | NUR ---
Call placed to Dr. Goldstein's office. Requested for them to call back in morning w follow up appt for pt, & inquired regarding staple removal.
--- NOTE | 2018-12-18 19:10 | NUR ---
bedside report received from Dee ESPINOSA RN, assume care of pt
[2018-12-18 20:30] VITALS: BP 150/75
[2018-12-18] MEDS: MONTELUKAST 10 MG (SINGULAIR) TAB PO SCH (20:37)
[2018-12-18] MEDS: clonazePAM 0.5 MG (KlonoPIN) TAB PO SCH (20:37)
--- NOTE | 2018-12-18 20:45 | NUR ---
assessments & interventions completed, see assessments & interventions, dressing change to back, incision well approximated with lindsay
--- NOTE | 2018-12-18 21:28 | NUR ---
c/o back pain level 10/10 on numeric scale, Percocet 5/325 2 tabs given
--- NOTE | 2018-12-18 22:15 | NUR ---
resting quietly in bed, pain level 0/10 on flacc scale
[2018-12-19] MEDS: oxyCODONE/APAP 5/325MG (PERCOCET 5) TABLET PO PRN ×4 (03:36→20:37)
--- NOTE | 2018-12-19 03:36 | NUR ---
c/o back pain level 9/10 on numeric scale, Percocet 5/325 2 tabs po given
--- NOTE | 2018-12-19 04:04 | NUR ---
resting quietly in bed, pain level 0/10 on flacc scale
[2018-12-19 05:33] VITALS: BP 124/68
[2018-12-19] MEDS: PANTOPRAZOLE 40 MG (PROTONIX) TAB PO SCH (06:52)
[2018-12-19] MEDS: VENlafaxine XR 75 MG (EFFEXOR XR) CAP PO SCH (06:52)
[2018-12-19] MEDS: predniSONE 20 MG TAB PO SCH (06:52)
[2018-12-19] MEDS: CALCIUM CARB + VIT D 600 MG (CALCARB + D) TAB PO SCH ×2 (06:55→16:10)
--- NOTE | 2018-12-19 07:14 | NUR ---
bedside report given to OWEN JIMENEZ
[2018-12-19] MEDS: RT-ADVAIR HFA 115/21 MCG PER PUFF IH SCH ×2 (08:02→18:50)
[2018-12-19] MEDS: lisINopril 20 MG (PRINIVIL) TABLET PO SCH (08:15)
[2018-12-19] MEDS: meTOprolol TARTRATE 25 MG (LOPRESSOR) TABLET PO SCH ×2 (08:15→20:37)
[2018-12-19] MEDS: SENNA W/DOCUSATE (SENOKOT S) TABLET PO SCH ×2 (08:15→20:37)
[2018-12-19] MEDS: LORATADINE (CLARITIN) 10 MG TAB PO SCH (08:15)
[2018-12-19] MEDS: ATORVASTATIN 10 MG (LIPITOR) TABLET PO SCH (08:15)
[2018-12-19] MEDS: MELOXICAM 7.5 MG (MOBIC) TABLET PO SCH (08:16)
--- NOTE | 2018-12-19 08:57 | PM&R Progress Note ---
Subjective HPI/CC On Admission Date Seen by Provider: Dec 19, 2018 Time Seen by Provider: 09:00 CC: Spinal cord decompression HPI: From acute care hospital course: Hospital course: Patient had a lengthy hospital course for 9 days after she was admitted for exacerbation of COPD and pneumonia when she became hypoxic and wheezing unable to undergo spinal cord decompression from overfill of cement with kyphoplasty done a few weeks prior. She was transferred from [facility] and Dr. Hobson was consulted. Chest x-ray revealed infiltrate so IV antibiotics were empirically placed. Nebulizer treatments were started along with oxygen supplementation along with IV steroids. Patient was able to undergo spinal cord surgery on 12/09/[address] Goldstein and Dr. Noland. The surgery was a success. IV antibiotics were s witched to oral antibiotics along with tapering of steroids and maintained on nebulizer treatments and oxygen supplementation. Severe postop constipation required multiple meds were still in process at time of transfer to inpatient rehabilitation. Patient doing much better today, small BM's after multiple meds and SSE and still working on that process. Pain is well controlled. Psych consult due to depression and h/o suicidal attempts. PLOF was independent for ambulation and ADL's. Will focus on improving strength and return bowel function to normal and monitor lungs for severe COPD. Subjective/Events-last exam Pt still very concerned, just overall social issues. Remodel of the bathroom took out the plumbing but now they will be able to finish tomorrow and she will DC Saturday Has a lot of anxiety chronically Will be ad aren up to the bathroom. Tylenol was given for headache yesterday and she has no WEBER today Bowels are moving. Lungs remain stable, and clear. Remains on oxygen. Discharge planned for Saturday Conferred with RN Reviewed therapy notes Dramatic improvement since admit Review of Systems General: Fatigue Musculoskeletal: back pain Objective Exam Vital Signs Vital Signs Date Time Temp Pulse Resp B/P (MAP) Pulse Ox O2 Delivery O2 Flow Rate FiO2 12/19/18 08:39 Room Air 12/19/18 08:04 93 12/19/18 05:33 98.3 77 20 124/68 (86) Capillary Refill : General Appearance: No Apparent Distress, WD/WN, Chronically ill HEENT: PERRL/EOMI, Normal ENT Inspection, Pharynx Normal, Moist Mucous Membranes Neck: Full Range of Motion, Normal Inspection, Non Tender, Supple Respiratory: Chest Non Tender, Lungs Clear, Normal Breath Sounds, No Accessory Muscle Use, No Respiratory Distress Cardiovascular: Regular Rate, Rhythm, No Edema, No Gallop, No JVD, No Murmur Gastrointestinal: Normal Bowel Sounds, No Organomegaly, No Pulsatile Mass, Non Tender, Soft Back: Decreased Range of Motion, Muscle Spasm, Vertebral Tenderness Extremity: Normal Capillary Refill, Normal Inspection, Normal Range of Motion, Non Tender, No Calf Tenderness, No Pedal Edema Neurologic/Psychiatric: Alert, Oriented x3, No Motor/Sensory Deficits, Normal Mood/Affect, produce manager II-XII Norm as Tested, Motor Weakness (generalized weakness upper extremities, 3/5 lower legs) Skin: Normal Color, Warm/Dry Lymphatic: No Adenopathy Results/Procedures Lab Patient resulted labs reviewed. FIM Transfers Therapy Code Descriptions/Definitions Functional [place] Measure: 0=Not Assessed/NA 4=Minimal Assistance 1=Total Assistance 5=Supervision or Setup 2=Maximal Assistance 6=Modified [place] 3=Moderate Assistance 7=Complete [place] Therapy Quality Codes: 6 Independent with activity with or without an assistive device 5 Patient requires set up or clean up by helper. Patient completes activity by themselves 4 Supervision or touching assist (CGA). [place] provide cues , steadying assist 3 The helper provides less than half the effort to complete the activity 2 The helper provides more than half the effort to complete the activity 1 Dependent. The helper does all the effort to complete an activity 7 Patient refused to complete or attempt activity 9 The patient did not perform the activity before the current illness or injury 88 Not attempted due to Medical conditions or safety concerns Transfers (B, C, W/C) (FIM): 5 Scootin Rollin Roll Left to Right (QC): 5 Supine to/from Sit: 6 Sit to/from Stand: 5 Sit to Lying (QC): 5 Sit to Stand (QC): 4 Chair/Opb-ag-Ugzqf Xfer(QC): 4 Bed to/from Chair: 5 Car Transfer (QC): 2 Gait Training Does the Patient Walk?: Yes Gait (FIM): 2 Distance (FIM): 9=807-75 ft (100x3) Distance: 120'x2 Walk 10 feet (QC): 4 Walk 50 ft with 2 Turns(QC): 4 Gait Level of Assist: 5 Gait Persons Needed: 1 Gait Assistive Device: FWW Wheelchair Training Does the Pt Use a Wheelchair?: Yes Wheelchair (FIM): 2 Wheelchair Distance: 1=166-35 ft (75x2) Distance: 50' Wheelchair Level of Assist: 5 Type of Wheelchair: Manual Stair Training Stair Training: Handrails/: 2 handrails Stairs (FIM): 2 #of Steps: 4 Stairs: Pattern: Step to Level of Assist: 4 Mental Status/Objective Comprehension: 7 Expression: 7 Social Interaction: 7 Problem Solvin Memory: 7 ADL-Treatment Feedin (Set up by report) Eating (QC): 5 Groomin Oral Hygiene (QC): 5 Bathin Bathing Location: L Arm, R Arm, L Upper Leg, R Upper Leg, L Lower Leg (including foot), R Lower Leg (including foot), Chest, Abdomen, Buttocks, Perineal Area Shower/Bathe Self (QC): 4 Upper Extremity Dressin Upper Body Dressing (QC): 5 Lower Extremity Dressin Lower Body Dressing (QC): 5 On/Off Footwear (QC): 4 (with adaptive equipment) Toiletin Toileting Hygiene (QC): 6 Toilet/Commode Transfer: 5 Toilet Transfer (QC): 5 Shower: 5 Assessment/Plan Assessment and Plan Assess & Plan/Chief Complaint Assessment: Spinal cord decompression POD # 10 Kyphoplasty overfill causing spinal cord injury Severe COPD Smoker Depression w/h/o suicidal attempts HTN Post op constipation Plan: Monitor lungs and emotional status closely BM regimen Monitor BP Psych consult appreciated Iron infusions to begin and checking level prior to starting infusion Complete abx and steroids and lungs are clear today 12/14/18 Dramatic improvement overall and patient is thrilled with her progress DC home Saturday (1) Spinal cord compression (2) Osteoporosis (3) Anxiety (4) Respiratory insufficiency (5) Hypoxia (6) GERD (gastroesophageal reflux disease) (7) COPD exacerbation (8) Pneumonia involving right lung (9) Compression fracture of T8 vertebra (10) S/P kyphoplasty (11) Smoker ALEYDA MONROY DO Dec 19, 2018 08:57
--- NOTE | 2018-12-19 10:31 | Occupational Ther Daily Note ---
OT Current Status-Daily Note Subjective Pt alert, sitting in w/c. Pt upset about home situation of not having bathroom complete, family lying about how ill is and when she is to leave. Pt had pain meds and agrees to therapy. Mental Status/Objective Patient Orientation: Person, Place, Time, Situation Therapy Code Descriptions/Definitions Functional [place] Measure: 0=Not Assessed/NA 4=Minimal Assistance 1=Total Assistance 5=Supervision or Setup 2=Maximal Assistance 6=Modified [place] 3=Moderate Assistance 7=Complete [place] ADL-Treatment Therapy Code Descriptions/Definitions Functional [place] Measure: 0=Not Assessed/NA 4=Minimal Assistance 1=Total Assistance 5=Supervision or Setup 2=Maximal Assistance 6=Modified [place] 3=Moderate Assistance 7=Complete [place] Therapy Quality Codes: 6 Independent with activity with or without an assistive device 5 Patient requires set up or clean up by helper. Patient completes activity by themselves 4 Supervision or touching assist (CGA). [place] provide cues , steadying assist 3 The helper provides less than half the effort to complete the activity 2 The helper provides more than half the effort to complete the activity 1 Dependent. The helper does all the effort to complete an activity 7 Patient refused to complete or attempt activity 9 The patient did not perform the activity before the current illness or injury 88 Not attempted due to Medical conditions or safety concerns Eating (FIM): 6 (Partial. Demonstrates ability to complete own set up and uses regular utensils to eat.) Eating (QC): 6 Grooming (FIM): 6 (Sitting at sink, pt able to complete by self.) Oral Hygiene (QC): 6 Bathing (FIM): 6 (Using grabbar, hand held shower and shower bench pt able to complete by self.) Bathing Location: L Arm, R Arm, L Upper Leg, R Upper Leg, L Lower Leg (including foot), R Lower Leg (including foot), Chest, Abdomen, Buttocks, Perineal Area Shower/Bathe Self (QC): 6 Upper Body (FIM): 6 (Retrieves clothing at w/c level. Completes by self.) Upper Body Dressing (QC): 6 Lower Body Dressing (FIM): 6 (Retrieves clothing at w/c level then is able to dress self. Pt brings feet up to don/doff.) Lower Body Dressing (QC): 6 On/Off Footwear (QC): 6 Toileting (FIM): 6 (Using grabbars and w/c, pt able to complete by self.) Toileting Hygiene (QC): 6 Toilet/Commode Transfer (FIM): 6 (Using w/c and grabbars.) Toilet Transfer (QC): 6 Shower Transfer(FIM): 6 (Using grabbar, shower bench and w/c.) Other Treatment Pt refuses to use TLSO. Completed arm bike for 8 min with minimal resistance to increase strength and activity tolerance for daily functional tasks. After therapy, pt sitting in w/c with call light/phone in reach. All needs met in room. OT Short Term Goals Short Term Goals Time Frame: Dec 26, 2018 Bathing(FIM): 4 Lower Body Dressing(FIM): 3 Toileting(FIM): 3 Transfers (B,C,W/C) (FIM): 4 Toilet/Commode Transfer(FIM): 4 Additional Short Term Goals: 1-Demonstrate ADL Tasks, 2-Verbalize Understanding, 3-ImproveStrength/Re 1=Demonstrate adherence to instructed precautions during ADL tasks. 2=Patient will verbalize/demonstrate understanding of assistive devices/modifications for ADL. 3=Patient will improve strength/tolerance for activity to enable patient to perform ADL's. OT Forming Machine Upkeep Mechanic Goals Usp Goals Time Frame: Jan 09, 2019 Eating (FIM): 6 (met-12/19/18) Eating (QC): 6 (met-12/19/18) Groomin (met-12/19/18) Oral Hygiene (QC): 6 (met-12/19/18) Bathing(FIM): 5 (met-12/19/18) Shower/Bathe Self (QC): 5 (met-12/19/18) Upper Body Dressing(FIM): 6 (met-12/19/18) Upper Body Dressing (QC): 6 (met-12/19/18) Lower Body Dressing(FIM): 5 (met-12/19/18) Lower Body Dressing (QC): 5 (met-12/19/18) On/Off Footwear (QC): 5 (met-12/19/18) Toileting(FIM): 5 (met-12/19/18) Toileting Hygiene (QC): 5 (met-12/19/18) Toilet/Commode Transfer(FIM): 6 (met-12/19/18) Toilet/Commode Transfer (QC): 6 (met-12/19/18) Shower Transfer(FIM): 5 (met-12/19/18) Additional Goals: 1-Demonstrate ADL Tasks, 2-Verbalize Understanding, 3- ImproveStrength/Re 1=Demonstrate adherence to instructed precautions during ADL tasks. 2=Patient will verbalize/demonstrate understanding of assistive devices/modifications for ADL. 3=Patient will improve strength/tolerance for activity to enable patient to perform ADL's. OT Education/Plan Problem List/Assessment Assessment: Decreased UE Strength, Impaired Funct Balance, Impaired Self-Care Skills Discharge Recommendations Plan/Recommendations: Continue POC Treatment Plan/Plan of Care Patient would benefit from OT for education, treatment and training to promote independence in ADL's, mobility, safety and/or upper extremity function for ADL's. Plan of Care: ADL Retraining, Functional Mobility, Group Exercise/Act as Ind, UE Funct Exercise/Act Treatment Duration: Jan 09, 2019 Frequency: At least 5 of 7 days/Wk (IRF) Estimated Hrs Per Day: 1.5 hours per day Agreement: Yes Rehab Potential: Fair Time/GCodes Start Time: 09:00 Stop Time: 10:30 Total Time Billed (hr/min): 90 Billed Treatment Time 1 visit-ADL 5 (75 min) EX 1 (10 min) KAROLYN ANNE Dec 19, 2018 10:31
--- NOTE | 2018-12-19 11:28 | Physical Therapy Daily Note ---
PT Daily Note-Current Subjective Patient in bed pre tx, agrees to PT, has 10/10 pain but states she has gotten pain meds already and they should be working soon. Patient still refuses to wear back brace. Appearance Patient in bed post tx with nurse call, phone, tray, all needs met. Mental Status Patient Orientation: Person, Place, Situation Transfers Therapy Code Descriptions/Definitions Functional [place] Measure: 0=Not Assessed/NA 4=Minimal Assistance 1=Total Assistance 5=Supervision or Setup 2=Maximal Assistance 6=Modified [place] 3=Moderate Assistance 7=Complete [place] Therapy Quality Codes: 6 Independent with activity with or without an assistive device 5 Patient requires set up or clean up by helper. Patient completes activity by themselves 4 Supervision or touching assist (CGA). [place] provide cues , steadying assist 3 The helper provides less than half the effort to complete the activity 2 The helper provides more than half the effort to complete the activity 1 Dependent. The helper does all the effort to complete an activity 7 Patient refused to complete or attempt activity 9 The patient did not perform the activity before the current illness or injury 88 Not attempted due to Medical conditions or safety concerns Transfers (B, C, W/C) (FIM): 6 Scootin Rollin Roll Left to Right (QC): 6 Supine to/from Sit: 6 Sit to/from Stand: 6 Sit to Lying (QC): 6 Sit to Stand (QC): 6 Chair/Bjk-ak-Cnhda Xfer(QC): 6 Bed to/from Chair: 6 Car Transfer (QC): 6 Gait Training Gait (FIM): 5 Distance: 150', 120'x2 Walk 10 feet (QC): 4 Walk 50 ft with 2 Turns(QC): 4 Walk 150 ft (QC): 4 Walking 10ft/uneven surface-QC: 4 Gait Level of Assist: 5 Gait Persons Needed: 1 Gait Assistive Device: FWW Slow ambulation, uncoordinated steps but improving, no LOB. Exercises Seated Therapy Exercises: Ankle pumps, Hip flexion Seated Reps: 20 LAQ alternating for 5 min with 2# ankle weights NuStep Minutes: 15 NuStep Workload: 4 Treatments LE exercise, bed mobility and transfers, ambulation Assessment Current Status: Fair Progress Improved general mobility but needed frequent rest breaks due to increased fatigue and pain. PT Short Term Goals Short Term Goals Time Frame: Dec 19, 2018 Transfers (B,C,W/C) (FIM): 4 Gait (FIM): 1 Gait Distance Comment: 20' Gait Level of Assist: 4 Gait Assistive Device: FWW Wheelchair Distance: 50' PT Care Home Goals Choir Teacher Goals PT Care Home Goals Time Frame: Jan 02, 2019 Transfers (B,C,W/C) (FIM): 5 Sit to Lying (QC): 6 Lying-Sitting on Side/Bed(QC): 6 Sit to Stand (QC): 4 Rollin Roll Left to Right (QC): 6 Chair/Ism-mp-Gukkv Xfer(QC): 4 Car Transfer (QC): 4 Gait (FIM): 5 Distance: 150' Walk 10 feet (QC): 4 Walk 10ft-Uneven Surface(QC): 4 Walk 50ft with 2 Turns (QC): 4 Walk 150 ft (QC): 4 Gait Level of Assist: 5 Gait Assistive Device: FWW Stairs (FIM): 2 # of Steps: 4 1 Step (curb) (QC): 4 4 Steps (QC): 4 Stairs Level Of Assist: 4 PT Plan Problem List Problem List: Activity Tolerance, Functional Strength, Safety, Balance, Gait, Transfer, Bed Mobility, ROM Treatment/Plan Treatment Plan: Continue Plan of Care Treatment Plan: Bed Mobility, Concurrent Therapy, Education, Functional Activity Re, Functional Strength, Group Therapy, Gait, Safety, Therapeutic Exercise, Transfers Treatment Duration: Jan 02, 2019 Frequency: At least 5 of 7 days/Wk (IRF) Estimated Hrs Per Day: 1.5 hours per day Patient and/or Family Agrees t: Yes Safety Risks/Education Patient Education: Gait Training, Transfer Techniques, Reviewed Precautions, Correct Positioning, Safety Issues Teaching Recipient: Patient Teaching Methods: Demonstration, Discussion Response to Teaching: Reinforcement Needed Time/GCodes Time In: 1030 Time Out: 1130 Total Billed Treatment Time: 60 Total Billed Treatment 1 visit EX 30' GT 20' FA 10' HAYES ARELLANO PT Dec 19, 2018 11:28
[2018-12-19] MEDS ORDERED: SENN-20 PO (12:00)
[2018-12-19] MEDS ORDERED: DICL100G18 TOP (12:00)
[2018-12-19] MEDS ORDERED: METO-333 PO (12:00)
[2018-12-19] MEDS ORDERED: LORA10TA7 PO (12:00)
[2018-12-19] MEDS ORDERED: PRD20T PO (12:00)
[2018-12-19] MEDS ORDERED: FERR325T18 PO (12:00)
[2018-12-19] MEDS ORDERED: OXYC1TAB87 PO (12:00)
--- NOTE | 2018-12-19 13:56 | Behavioral Health Consult ---
Consult- Consult Date Seen by Provider: Dec 17, 2018 Time Seen by Provider: 11:00 Date: 12-17-18 Referral: Dr. Prabhakar [facility]#: [id number] CPT Code: 20221 Psychodiagnostic Examination 10704 Interactive Complexity, 1 unit(s) Start Time: 11:00 am Stop Time: 1:00 pm Chief Complaint: anxiety Referral: Swati Curiel is a 68-year-old, , female referred by Dr. Prabhakar for a clinical diagnostic assessment. Information for this evaluation was gathered from self-report, clinical observation, hospital nurse, and medical records. Presenting Problem: According to the medical records, Swati has appeared anxious to staff while being hospitalized. It was reported that her has had two emergency department visits since she has been hospitalized and she worries about how he has been doing and misses him. His nurse reported that Swati has pain issues and sees a pain doctor but denied her complaining about pain or anxiety today. Patient was seen alone in her room and stated she has been very upset since her pain issues began and has had trust issues since then as well. She reported in August 2017 she tried to move a large branch from her yard and ended up falling backwards and landed on her back. She reported she began having numbness in her feet and balance problems after that. She reported she did not feel she was able to get answers and her PCP referred her to a pain management doctor. She reported she was eventually told she had spinal stenosis and needed to have surgery as soon as possible. She reported by the time she had the surgery her symptoms had become so severe she was in a wheelchair due to being unable to walk. She reported her surgeon told her if she did not have surgery then she would be paralyzed in a couple of weeks. She reported she was very upset that her PCP did not send her to a neurologist in the first place and feels like he did not care about her and just wanted to put her off to pain management. Swati reported she worries about other people receiving the same treatment she did and not being referred to the correct specialist. She stated she was very upset that she could have been paralyzed due to the doctor not caring about her, and if she would not have gone to see someone else about another opinion she may have been paralyzed. Swati reported prior to the past month, she has done very well. She denied any previous mental health treatment but stated the past month she has felt depressed due to her changes in health. she reported she has always been very active and has had to significantly change her activity level the past month and that has been very hard on her. She acknowledged some loss of pleasure, difficulty concentrating, and fatigue but stated they have only been the past month. Swati reported some worry but stated she has always worried about her kids and grandkids and misses her family since she has been hospitalized. She reported she does feel that her health has put her worries in perspective and realized that they were minor worries with everything she has been through. Observations/Mental Status: Swati was seen on the rehab floor and was alone. Overall appearance was appropriate and indicated adequate self-care. Swati appeared to be a fair historian. Observed gait and gross motor movements indicated no clinically significant difficulties. [place] general approach to the evaluation indicated interest. Orientation was intact for person, place, time, and situation. Swati evidenced fair understanding of the reason for the appointment. [place] in-session behavior was cooperative. The predominant mood was somewhat anxious with affect appropriate to expressed concerns and presenting problem. Immediate attention and concentration appeared variable. Memory functioning appeared to be intact. Level of intellectual functioning compared to same age peers was estimated to be in the average range. Thought processes were found to be somewhat illogical and disjointed. Thought content appeared normal. Psychomotor functioning was within normal limits. Tone of voice was normal and controlled. Expressive speech was marked by fluent speech and language. Eye contact was fair. Insight was fair. Overall, style of interacting during the appointment was appropriate and motivated. Current/Previous Mental Health Treatment: Past psychiatric history was reported as met with a therapist when her son was having substance abuse problems but denied any mental health treatment for herself. She also reported she p articipated in [facility] for seven years and will still talk with the people from the group. History of self or other harm was denied. Current destructive behavior patterns: none indicated or reported. Family psychiatric history none reported. Recreational Drug Usage: Substance abuse history was denied. Family history of alcohol or drug abuse was reported as reported as significant for substance abuse in son. Educational and Vocational Histories: History of learning problems: not a ssessed. School-based remedial education services: not assessed. In-school behavior problems: not assessed. Current vocational status: currently retired. Family and Social Histories: Swati reported she lives with her and their adult son. She reported she also has another son and a daughter who do not live with her but live in [place]. She reported her son who lives with her has a history of substance abuse problems and has lived with them for eight years as he no longer has a drivers license. She reported she has very good support from her family, friends and computing services director. Swati stated she has three friends she will regularly see, and they are very supportive. Summary of Assessment Information/Prognosis: Swati is a 68-year-old female. Following current assessment, presenting problem and symptoms appear consistent with a preliminary diagnosis of F43.23 Adjustment Disorder with mixed anxiety and depressed mood. Overall, prognosis is estimated to be guarded. Strengths/Weaknesses: Strengths/Resources: accepts feedback, good personal care habits, stable living environment, supportive family, intelligent, and cares about others Liabilities/Barriers: health problems Diagnostic Impressions: F43.23 Adjustment Disorder with mixed anxiety and depressed mood Initial Treatment Plan/Recommendations: The recommendations currently include the following: Swati was asked about participating in individual outpatient psychotherapy once she is discharged from the hospital but stated she does not feel she needs it. She stated she feels her only problem is related to her treatment by her previous doctor and she is planning on working through that by talking with her friends. Swati is recommended to return within one week for follow-up. Further disposition will be made at that time. Swati verbalized understanding of these recommendations and an intention to comply with the proposed treatment plan and course of treatment. [facility] Dec 19, 2018 13:55
--- NOTE | 2018-12-19 14:51 | Physical Therapy Daily Note ---
PT Daily Note-Current Subjective Patient is in bed and agrees to PT. She report she is very concerned about her who is being admitted to a hospital in [place]. Pain Numeric Pain Scale: 0-No Pain Location: No Pain Reported Mental Status Patient Orientation: Normal For Age Transfers Therapy Code Descriptions/Definitions Functional [place] Measure: 0=Not Assessed/NA 4=Minimal Assistance 1=Total Assistance 5=Supervision or Setup 2=Maximal Assistance 6=Modified [place] 3=Moderate Assistance 7=Complete [place] Therapy Quality Codes: 6 Independent with activity with or without an assistive device 5 Patient requires set up or clean up by helper. Patient completes activity by themselves 4 Supervision or touching assist (CGA). [place] provide cues , steadying assist 3 The helper provides less than half the effort to complete the activity 2 The helper provides more than half the effort to complete the activity 1 Dependent. The helper does all the effort to complete an activity 7 Patient refused to complete or attempt activity 9 The patient did not perform the activity before the current illness or injury 88 Not attempted due to Medical conditions or safety concerns Transfers (B, C, W/C) (FIM): 6 Scootin Roll Left to Right (QC): 6 Supine to/from Sit: 6 Sit to/from Stand: 6 Sit to Lying (QC): 6 Sit to Stand (QC): 6 Chair/Oxs-pc-[place] Xfer(QC): 6 Bed to/from Chair: 6 Car Transfer (QC): 6 Gait Training Does the Patient Walk?: Yes Gait (FIM): 6 Distance (FIM): 3=150 ft Distance: 150' x 2 Walk 10 feet (QC): 6 Walk 50 ft with 2 Turns(QC): 6 Walk 150 ft (QC): 6 Gait Level of Assist: 6 Gait Assistive Device: FWW slow, steady/no deviation Stair Training Stair Training: Handrails/: 2 handrails Stairs (FIM): 2 #of Steps: 4 1 Step (curb) (QC): 5 4 Steps (QC): 5 12 Steps (QC): 9 Stairs: Pattern: Step to Level of Assist: 5 Exercises NuStep Minutes: 15 NuStep Workload: 5 Assessment Patient much improved with gross motor skills and will dismiss to home this weekend. PT Short Term Goals Short Term Goals Time Frame: Dec 19, 2018 Transfers (B,C,W/C) (FIM): 4 Gait (FIM): 1 Gait Distance Comment: 20' Gait Level of Assist: 4 Gait Assistive Device: FWW Wheelchair Distance: 50' PT Group Home Goals Concrete Technician Goals PT Concrete Technician Goals Time Frame: Jan 02, 2019 Transfers (B,C,W/C) (FIM): 5 Sit to Lying (QC): 6 Lying-Sitting on Side/Bed(QC): 6 Sit to Stand (QC): 4 Rollin Roll Left to Right (QC): 6 Chair/Mra-ia-Idshb Xfer(QC): 4 Car Transfer (QC): 4 Gait (FIM): 5 Distance: 150' Walk 10 feet (QC): 4 Walk 10ft-Uneven Surface(QC): 4 Walk 50ft with 2 Turns (QC): 4 Walk 150 ft (QC): 4 Gait Level of Assist: 5 Gait Assistive Device: FWW Stairs (FIM): 2 # of Steps: 4 1 Step (curb) (QC): 4 4 Steps (QC): 4 Stairs Level Of Assist: 4 PT Plan Treatment/Plan Treatment Plan: Continue Plan of Care Treatment Plan: Bed Mobility, Concurrent Therapy, Education, Functional Activity Re, Functional Strength, Group Therapy, Gait, Safety, Therapeutic Exercise, Transfers Treatment Duration: Jan 02, 2019 Frequency: At least 5 of 7 days/Wk (IRF) Estimated Hrs Per Day: 1.5 hours per day Patient and/or Family Agrees t: Yes Time/GCodes Time In: 1351 Time Out: 1421 Total Billed Treatment Time: 30 Total Billed Treatment 1 visit EX 15 min FA 15 min SUKHWINDER RUEDA PT Dec 19, 2018 14:51
--- NOTE | 2018-12-19 15:26 | NUR ---
As patient is MOD I with all activities, team has recommended patient proceed with discharge on Saturday, 631 rather than . Patient is in agreement with this, as she recently was notified of her 's hospitalization. Patient originally expressed concerns with returning home as her bathroom remodel and plumbing are unfinished; however, patient's son has informed her that the contractor will have it finished by Saturday. As patient requested and as agreed upon by Dr. Prabhakar, patient will proceed with outpatient therapy at [facility] in [place] for PT and OT services. WEB FEEDER sent referral and facility has already contacted patient to arrange appts. Patient has no new DME needs. WEB FEEDER reviewed IMM and Patient Choice Letter, patient expressed no concerns and provided signature on documents. Please see discharge summary for further information.
[2018-12-19 15:27] VITALS: BP 159/88
[2018-12-19] MEDS: clonazePAM 0.5 MG (KlonoPIN) TAB PO SCH (20:37)
[2018-12-19] MEDS: MONTELUKAST 10 MG (SINGULAIR) TAB PO SCH (20:37)
[2018-12-20] MEDS: oxyCODONE/APAP 5/325MG (PERCOCET 5) TABLET PO PRN ×3 (01:52→18:10)
[2018-12-20] MEDS: RT-ALBUTEROL/IPRATROPIUM 3 ML (DUONEB) VIAL IH PRN ×2 (02:24→18:20)
[2018-12-20 05:26] VITALS: BP 134/67
[2018-12-20] MEDS: CALCIUM CARB + VIT D 600 MG (CALCARB + D) TAB PO SCH ×2 (06:40→17:07)
[2018-12-20] MEDS: PANTOPRAZOLE 40 MG (PROTONIX) TAB PO SCH (06:41)
[2018-12-20] MEDS: VENlafaxine XR 75 MG (EFFEXOR XR) CAP PO SCH (06:41)
[2018-12-20] MEDS: predniSONE 20 MG TAB PO SCH (06:41)
[2018-12-20] MEDS: RT-ADVAIR HFA 115/21 MCG PER PUFF IH SCH ×2 (07:25→18:20)
[2018-12-20] MEDS: MELOXICAM 7.5 MG (MOBIC) TABLET PO SCH (09:16)
[2018-12-20] MEDS: LORATADINE (CLARITIN) 10 MG TAB PO SCH (09:16)
[2018-12-20] MEDS: meTOprolol TARTRATE 25 MG (LOPRESSOR) TABLET PO SCH ×2 (09:16→20:33)
[2018-12-20] MEDS: ATORVASTATIN 10 MG (LIPITOR) TABLET PO SCH (09:16)
[2018-12-20] MEDS: SENNA W/DOCUSATE (SENOKOT S) TABLET PO SCH ×2 (09:16→20:33)
[2018-12-20] MEDS: lisINopril 20 MG (PRINIVIL) TABLET PO SCH (09:17)
--- NOTE | 2018-12-20 12:44 | PM&R Progress Note ---
Subjective HPI/CC On Admission Date Seen by Provider: Dec 20, 2018 Time Seen by Provider: 10:30 CC: Spinal cord decompression HPI: From acute care hospital course: Hospital course: Patient had a lengthy hospital course for 9 days after she was admitted for exacerbation of COPD and pneumonia when she became hypoxic and wheezing unable to undergo spinal cord decompression from overfill of cement with kyphoplasty done a few weeks prior. She was transferred from [facility] and Dr. Hobson was consulted. Chest x-ray revealed infiltrate so IV antibiotics were empirically placed. Nebulizer treatments were started along with oxygen supplementation along with IV steroids. Patient was able to undergo spinal cord surgery on 12/09/[address] Goldstein and Dr. Noland. The surgery was a success. IV antibiotics were s witched to oral antibiotics along with tapering of steroids and maintained on nebulizer treatments and oxygen supplementation. Severe postop constipation required multiple meds were still in process at time of transfer to inpatient rehabilitation. Patient doing much better today, small BM's after multiple meds and SSE and still working on that process. Pain is well controlled. Psych consult due to depression and h/o suicidal attempts. PLOF was independent for ambulation and ADL's. Will focus on improving strength and return bowel function to normal and monitor lungs for severe COPD. Subjective/Events-last exam Patient doing very well Ready for discharge tomorrow Using incentive spirometer and nebulizers Smoking cessation discussed and she has quit before for 3 years so she feels comfortable and confident she will achieve that goal No pain is reported right now but she does have coughing episodes in the night and does have back pain Check meds and labs Reviewed med list Pain medication prescription given Doing very well + BM Review of Systems Pulmonary: Cough Musculoskeletal: back pain Objective Exam Vital Signs Vital Signs Date Time Temp Pulse Resp B/P (MAP) Pulse Ox O2 Delivery O2 Flow Rate FiO2 12/20/18 09:00 Room Air 12/20/18 05:26 99.3 80 20 134/67 (89) 96 Capillary Refill : General Appearance: No Apparent Distress, WD/WN, Chronically ill HEENT: PERRL/EOMI, Normal ENT Inspection, Pharynx Normal, Moist Mucous Membranes Neck: Full Range of Motion, Normal Inspection, Non Tender, Supple Respiratory: Chest Non Tender, Lungs Clear, Normal Breath Sounds, No Accessory Muscle Use, No Respiratory Distress Cardiovascular: Regular Rate, Rhythm, No Edema, No Gallop, No JVD, No Murmur Gastrointestinal: Normal Bowel Sounds, No Organomegaly, No Pulsatile Mass, Non Tender, Soft Back: Decreased Range of Motion, Muscle Spasm, Vertebral Tenderness Extremity: Normal Capillary Refill, Normal Inspection, Normal Range of Motion, Non Tender, No Calf Tenderness, No Pedal Edema Neurologic/Psychiatric: Alert, Oriented x3, No Motor/Sensory Deficits, Normal Mood/Affect, waste specialist II-XII Norm as Tested, Motor Weakness (generalized weakness upper extremities, 3/5 lower legs) Skin: Normal Color, Warm/Dry Lymphatic: No Adenopathy Results/Procedures Lab Patient resulted labs reviewed. FIM Transfers Therapy Code Descriptions/Definitions Functional [place] Measure: 0=Not Assessed/NA 4=Minimal Assistance 1=Total Assistance 5=Supervision or Setup 2=Maximal Assistance 6=Modified [place] 3=Moderate Assistance 7=Complete [place] Therapy Quality Codes: 6 Independent with activity with or without an assistive device 5 Patient requires set up or clean up by helper. Patient completes activity by themselves 4 Supervision or touching assist (CGA). [place] provide cues , steadying assist 3 The helper provides less than half the effort to complete the activity 2 The helper provides more than half the effort to complete the activity 1 Dependent. The helper does all the effort to complete an activity 7 Patient refused to complete or attempt activity 9 The patient did not perform the activity before the current illness or injury 88 Not attempted due to Medical conditions or safety concerns Transfers (B, C, W/C) (FIM): 6 Scootin Rollin Roll Left to Right (QC): 6 Supine to/from Sit: 6 Sit to/from Stand: 6 Sit to Lying (QC): 6 Sit to Stand (QC): 6 Chair/Cfq-uc-Kehkz Xfer(QC): 6 Bed to/from Chair: 6 Car Transfer (QC): 6 Gait Training Does the Patient Walk?: Yes Gait (FIM): 6 Distance (FIM): 3=150 ft Distance: 150' x 2 Walk 10 feet (QC): 6 Walk 50 ft with 2 Turns(QC): 6 Walk 150 ft (QC): 6 Walking 10ft/uneven surface-QC: 4 Gait Level of Assist: 6 Gait Persons Needed: 1 Gait Assistive Device: FWW Wheelchair Training Does the Pt Use a Wheelchair?: Yes Wheelchair (FIM): 2 Wheelchair Distance: 3=604-77 ft (75x2) Distance: 50' Wheelchair Level of Assist: 5 Type of Wheelchair: Manual Stair Training Stair Training: Handrails/: 2 handrails Stairs (FIM): 2 #of Steps: 4 1 Step (curb) (QC): 5 4 Steps (QC): 5 12 Steps (QC): 9 Stairs: Pattern: Step to Level of Assist: 5 Mental Status/Objective Comprehension: 7 Expression: 7 Social Interaction: 7 Problem Solvin Memory: 7 ADL-Treatment Feedin (Partial. Demonstrates ability to complete own set up and uses regular utensils to eat.) Eating (QC): 6 Groomin (Sitting at sink, pt able to complete by self.) Oral Hygiene (QC): 6 Bathin (Using grabbar, hand held shower and shower bench pt able to complete by self.) Bathing Location: L Arm, R Arm, L Upper Leg, R Upper Leg, L Lower Leg (including foot), R Lower Leg (including foot), Chest, Abdomen, Buttocks, Perineal Area Shower/Bathe Self (QC): 6 Upper Extremity Dressin (Retrieves clothing at w/c level. Completes by self.) Upper Body Dressing (QC): 6 Lower Extremity Dressin (Retrieves clothing at w/c level then is able to dress self. Pt brings feet up to don/doff.) Lower Body Dressing (QC): 6 On/Off Footwear (QC): 6 Toiletin (Using grabbars and w/c, pt able to complete by self.) Toileting Hygiene (QC): 6 Toilet/Commode Transfer: 6 (Using w/c and grabbars.) Toilet Transfer (QC): 6 Shower: 6 (Using grabbar, shower bench and w/c.) Assessment/Plan Assessment and Plan Assess & Plan/Chief Complaint Assessment: Spinal cord decompression POD # 11 Kyphoplasty overfill causing spinal cord injury Severe COPD Smoker Depression w/h/o suicidal attempts HTN Post op constipation Plan: Monitor lungs and emotional status closely BM regimen Monitor BP Psych consult appreciated Iron infusions x 1 and maintained on po iron Complete abx and steroids and lungs are clear today 12/14/18 Dramatic improvement overall and patient is thrilled with her progress DC home Saturday (1) Spinal cord compression (2) Osteoporosis (3) Anxiety (4) Respiratory insufficiency (5) Hypoxia (6) GERD (gastroesophageal reflux disease) (7) COPD exacerbation (8) Pneumonia involving right lung (9) Compression fracture of T8 vertebra (10) S/P kyphoplasty (11) Smoker ALEYDA MONROY DO Dec 20, 2018 12:44
--- NOTE | 2018-12-20 14:04 | Physical Therapy Daily Note ---
PT Daily Note-Current Subjective Pt states she had a rough nite with coughing and increasing back pain. still with back pain and just received her pain Meds. Agreeable to PT session. States she is going home tomorrow Pain Numeric Pain Scale: 9 Comment: back Appearance 1st attempted visit, housekeeping mopping floor. 2nd attempted visit pt eating breakfast. 3rd attempt pt available, in bed awake and alert. At end of session, pt in bathroom with call light within reach. Mental Status Patient Orientation: Person, Place, Time, Eyes Open, Situation back support brace which pt refuses to wear although states she did put it on for a little bit last night after coughing and pain increased Transfers Therapy Code Descriptions/Definitions Functional [place] Measure: 0=Not Assessed/NA 4=Minimal Assistance 1=Total Assistance 5=Supervision or Setup 2=Maximal Assistance 6=Modified [place] 3=Moderate Assistance 7=Complete [place] Therapy Quality Codes: 6 Independent with activity with or without an assistive device 5 Patient requires set up or clean up by helper. Patient completes activity by themselves 4 Supervision or touching assist (CGA). [place] provide cues , steadying assist 3 The helper provides less than half the effort to complete the activity 2 The helper provides more than half the effort to complete the activity 1 Dependent. The helper does all the effort to complete an activity 7 Patient refused to complete or attempt activity 9 The patient did not perform the activity before the current illness or injury 88 Not attempted due to Medical conditions or safety concerns Transfers (B, C, W/C) (FIM): 6 Scootin Rollin Supine to/from Sit: 6 Sit to/from Stand: 6 Bed to/from Chair: 6 pt demonstrates safe technique with all transitions performed Gait Training Does the Patient Walk?: Yes Gait (FIM): 5 Distance (FIM): 3=150 ft Distance: 300 Gait Level of Assist: 5 Gait Persons Needed: 1 Gait Assistive Device: FWW RLE ER, good step length, no unsteadiness or LOB. Treatments transfer, gait, balance, safety, bathroom, activity tolerance, functional mobility Assessment Current Status: Good Progress PT Short Term Goals Short Term Goals Time Frame: Dec 19, 2018 Transfers (B,C,W/C) (FIM): 4 Gait (FIM): 1 Gait Distance Comment: 20' Gait Level of Assist: 4 Gait Assistive Device: FWW Wheelchair Distance: 50' PT Shelter Goals Hotel Services Sales Representative Goals PT Shelter Goals Time Frame: Jan 02, 2019 Transfers (B,C,W/C) (FIM): 5 Sit to Lying (QC): 6 Lying-Sitting on Side/Bed(QC): 6 Sit to Stand (QC): 4 Rollin Roll Left to Right (QC): 6 Chair/Gft-zp-Ukabz Xfer(QC): 4 Car Transfer (QC): 4 Gait (FIM): 5 Distance: 150' Walk 10 feet (QC): 4 Walk 10ft-Uneven Surface(QC): 4 Walk 50ft with 2 Turns (QC): 4 Walk 150 ft (QC): 4 Gait Level of Assist: 5 Gait Assistive Device: FWW Stairs (FIM): 2 # of Steps: 4 1 Step (curb) (QC): 4 4 Steps (QC): 4 Stairs Level Of Assist: 4 PT Plan Treatment/Plan Treatment Plan: Continue Plan of Care Treatment Plan: Bed Mobility, Concurrent Therapy, Education, Functional Activity Re, Functional Strength, Group Therapy, Gait, Safety, Therapeutic Exercise, Transfers Treatment Duration: Jan 02, 2019 Frequency: At least 5 of 7 days/Wk (IRF) Estimated Hrs Per Day: 1.5 hours per day Patient and/or Family Agrees t: Yes Safety Risks/Education Patient Education: Gait Training, Transfer Techniques, Safety Issues Teaching Recipient: Patient Teaching Methods: Discussion Response to Teaching: Verbalize Understanding, Return Demonstration Time/GCodes Time In: 925 Time Out: 940 Total Billed Treatment Time: 15 Total Billed Treatment 1 visit, GT x1 unit MADISON CARVAJAL ENERGY CONSERVATION DIRECTOR Dec 20, 2018 14:04
[2018-12-20] MEDS: FERROUS SULF 325 MG (IRON) TAB PO SCH (14:14)
[2018-12-20 17:26] VITALS: BP 151/70
[2018-12-20] MEDS: clonazePAM 0.5 MG (KlonoPIN) TAB PO SCH (20:33)
[2018-12-20] MEDS: MONTELUKAST 10 MG (SINGULAIR) TAB PO SCH (20:33)
[2018-12-21] MEDS: oxyCODONE/APAP 5/325MG (PERCOCET 5) TABLET PO PRN ×3 (01:46→10:57)
[2018-12-21 05:36] VITALS: BP 138/66
[2018-12-21] MEDS: CALCIUM CARB + VIT D 600 MG (CALCARB + D) TAB PO SCH (06:00)
[2018-12-21] MEDS: predniSONE 20 MG TAB PO SCH (06:00)
[2018-12-21] MEDS: VENlafaxine XR 75 MG (EFFEXOR XR) CAP PO SCH (06:00)
[2018-12-21] MEDS: PANTOPRAZOLE 40 MG (PROTONIX) TAB PO SCH (06:00)
[2018-12-21] MEDS: RT-ADVAIR HFA 115/21 MCG PER PUFF IH SCH (07:24)
[2018-12-21] MEDS: ATORVASTATIN 10 MG (LIPITOR) TABLET PO SCH (09:44)
[2018-12-21] MEDS: lisINopril 20 MG (PRINIVIL) TABLET PO SCH (09:44)
[2018-12-21] MEDS: meTOprolol TARTRATE 25 MG (LOPRESSOR) TABLET PO SCH (09:45)
[2018-12-21] MEDS: MELOXICAM 7.5 MG (MOBIC) TABLET PO SCH (09:45)
[2018-12-21] MEDS: LORATADINE (CLARITIN) 10 MG TAB PO SCH (09:45)
[2018-12-21] MEDS: SENNA W/DOCUSATE (SENOKOT S) TABLET PO SCH (10:15)
[2018-12-21 11:00] VITALS: BP 138/66
--- NOTE | 2018-12-21 11:39 | Discharge Summary ---
Diagnosis/Chief Complaint Date of Admission Dec 12, 2018 at 11:00 Date of Discharge Discharge Date: Dec 21, 2018 Discharge Diagnosis Assessment: Spinal cord decompression POD # 13 Kyphoplasty overfill causing spinal cord injury Severe COPD Smoker Depression w/h/o suicidal attempts HTN Post op constipation Plan: Monitor lungs and emotional status closely BM regimen Monitor BP Psych consult appreciated Iron infusions x 1 and maintained on po iron Complete abx and steroids and lungs are clear today 12/14/18 Dramatic improvement overall and patient is thrilled with her progress DC home today Discharge Summary Discharge Physical Examination Allergies: Coded Allergies: adhesive (Verified Allergy, Unknown, 12/04/18) naproxen (Verified Allergy, Unknown, 12/04/18) Vitals & I&Os Vital Signs Date Time Temp Pulse Resp B/P (MAP) Pulse Ox O2 Delivery O2 Flow Rate FiO2 12/21/18 11:00 88 20 138/66 97 Room Air 12/21/18 09:15 98.5 General Appearance: Alert, Oriented X3, Cooperative Respiratory: Clear to Auscultation, Normal Air Movement Cardiovascular: Regular Rate, Normal S1, Normal S2 Neuro: Normal Gait, Normal Speech, Strength at 5/5 X4 Ext Psych/Mental Status: Mental Status NL, Mood NL Hospital Course Was the Problem List Reviewed?: Yes Hospital course: Patient [facility] an [facility] she suffered a spinal cord injury after a kyphoplasty was overfilled with cement. She had that surgery done by Dr. Rodriguez in [place] but then she was seen by Dr. Goldstein spine surgery and was prepped for surgery but exacerbation of COPD and hypoxia precluded surgery she was sent to via [facility] [place] found to have pneumonia exacerbation of COPD and Dr. Hobson was kind enough to aggressively manage that with resolution in order to undergo surgery on Saturday12/08/18. She was deemed stable for inpatient rehabilitation transfer and she underwent a very aggressive therapy regimen which had dramatic improvement in her ability to ambulate and strengthen and prevent falls. Confident about returning home after recovered independence in her ADLs. Smoking cessation was aggressively counseled inpatient was completing steroid taper at time of discharge after completing antibiotics for the pneumonia. Overall patient had such significant improvement she was stable for discharge in the care of her family with close follow-up with Dr. Goldstein. Labs (last 24 hrs) Laboratory Tests 12/13/18 05:43: White Blood Count 10.3, Red Blood Count 2.95L, Hemoglobin 9.0L, Hematocrit 28L, Mean Corpuscular Volume 96, Mean Corpuscular Hemoglobin 31, Mean Corpuscular Hemoglobin Concent 32, Red Cell Distribution Width 16.4H, Platelet Count 174, Mean Platelet Volume 9.6, Neutrophils (%) (Auto) 76H, Lymphocytes (%) (Auto) 15, Monocytes (%) (Auto) 9, Eosinophils (%) (Auto) 0, Basophils (%) (Auto) 0, Neutrophils # (Auto) 7.9H, Lymphocytes # (Auto) 1.5, Monocytes # (Auto) 0.9, Eosinophils # (Auto) 0.0, Basophils # (Auto) 0.0, Sodium Level 140, Potassium Level 4.1, Chloride Level 99, Carbon Dioxide Level 33H, Anion Gap 8, Blood Urea Nitrogen 14, Creatinine 0.63, Estimat Glomerular Filtration Rate > 60, BUN/Creatinine Ratio 22, Glucose Level 81, Calcium Level 8.8, Corrected Calcium 9.5, Total Bilirubin 0.6, Aspartate Amino Transf (AST/SGOT) 26, Alanine Aminotransferase (ALT/SGPT) 44, Alkaline Phosphatase 56, Total Protein 5.2L, Albumin 3.1L 12/16/18 05:46: White Blood Count 10.0, Red Blood Count 2.80L, Hemoglobin 8.6L, Hematocrit 28L, Mean Corpuscular Volume 98, Mean Corpuscular Hemoglobin 31, Mean Corpuscular Hemoglobin Concent 31L, Red Cell Distribution Width 15.4H, Platelet Count 247, Mean Platelet Volume 10.1, Neutrophils (%) (Auto) 71, Lymphocytes (%) (Auto) 20, Monocytes (%) (Auto) 8, Eosinophils (%) (Auto) 1, Basophils (%) (Auto) 0, Neutrophils # (Auto) 7.2, Lymphocytes # (Auto) 2.0, Monocytes # (Auto) 0.8, Eosinophils # (Auto) 0.1, Basophils # (Auto) 0.0, Sodium Level 139, Potassium Level 4.0, Chloride Level 99, Carbon Dioxide Level 30, Anion Gap 10, Blood Urea Nitrogen 17, Creatinine 0.71, Estimat Glomerular Filtration Rate > 60, BUN/Creatinine Ratio 24, Glucose Level 123H, Calcium Level 8.8, Corrected Calcium 9.5, Total Bilirubin 0.4, Aspartate Amino Transf (AST/SGOT) 15, Alanine Aminotransferase (ALT/SGPT) 33, Alkaline Phosphatase 64, Total Protein 5.3L, Albumin 3.1L, Iron Level 37 Pending Labs Laboratory Tests 12/13/18 05:43: White Blood Count 10.3, Red Blood Count 2.95, Hemoglobin 9.0, Hematocrit 28, Mean Corpuscular Volume 96, Mean Corpuscular Hemoglobin 31, Mean Corpuscular Hemoglobin Concent 32, Red Cell Distribution Width 16.4, Platelet Count 174, Mean Platelet Volume 9.6, Neutrophils (%) (Auto) 76, Lymphocytes (%) (Auto) 15, Monocytes (%) (Auto) 9, Eosinophils (%) (Auto) 0, Basophils (%) (Auto) 0, Neutrophils # (Auto) 7.9, Lymphocytes # (Auto) 1.5, Monocytes # (Auto) 0.9, Eosinophils # (Auto) 0.0, Basophils # (Auto) 0.0, Sodium Level 140, Potassium Level 4.1, Chloride Level 99, Carbon Dioxide Level 33, Anion Gap 8, Blood Urea Nitrogen 14, Creatinine 0.63, Estimat Glomerular Filtration Rate > 60, BUN/Creatinine Ratio 22, Glucose Level 81, Calcium Level 8.8, Corrected Calcium 9.5, Total Bilirubin 0.6, Aspartate Amino Transf (AST/SGOT) 26, Alanine Aminotransferase (ALT/SGPT) 44, Alkaline Phosphatase 56, Total Protein 5.2, Albumin 3.1 12/16/18 05:46: White Blood Count 10.0, Red Blood Count 2.80, Hemoglobin 8.6, Hematocrit 28, Mean Corpuscular Volume 98, Mean Corpuscular Hemoglobin 31, Mean Corpuscular Hemoglobin Concent 31, Red Cell Distribution Width 15.4, Platelet Count 247, Mean Platelet Volume 10.1, Neutrophils (%) (Auto) 71, Lymphocytes (%) (Auto) 20, Monocytes (%) (Auto) 8, Eosinophils (%) (Auto) 1, Basophils (%) (Auto) 0, Neutrophils # (Auto) 7.2, Lymphocytes # (Auto) 2.0, Monocytes # (Auto) 0.8, Eosinophils # (Auto) 0.1, Basophils # (Auto) 0.0, Sodium Level 139, Potassium Level 4.0, Chloride Level 99, Carbon Dioxide Level 30, Anion Gap 10, Blood Urea Nitrogen 17, Creatinine 0.71, Estimat Glomerular Filtration Rate > 60, BUN/Creatinine Ratio 24, Glucose Level 123, Calcium Level 8.8, Corrected Calcium 9.5, Total Bilirubin 0.4, Aspartate Amino Transf (AST/SGOT) 15, Alanine Aminotransferase (ALT/SGPT) 33, Alkaline Phosphatase 64, Total Protein 5.3, Albumin 3.1, Iron Level 37 Discharge Home Medications: Active Scripts Active Prednisone 20 Mg Tab 20 Mg PO DAILY Take 3 tabs(60mg)daily, decrease by 1/2 tab(10mg)daily. Senna-Time S Tablet (Sennosides/Docusate Sodium) 1 Each Tablet 2 Ea PO BID Percocet 5-325 mg Tablet (Oxycodone HCl/Acetaminophen) 1 Each Tablet 1-2 Tab PO Q4H PRN Voltaren (Diclofenac Sodium) 100 Gm Gel..gram. 0 Gm TOP QID PRN Metoprolol Tartrate 25 Mg Tablet 25 Mg PO BID Ferrous Sulfate 325 Mg Tablet 325 Mg PO Q48H Loratadine 10 Mg Tablet 10 Mg PO DAILY Reported Ipratropium [place] 0.2 Mg/1 Ml Solution 1 Vial NEB QID PRN USE W/ALBUTEROL 0.5CC Albuterol Sulfate 5 Mg/1 Ml Solution 0.5 Ml NEB QID PRN USE 0.5CC IN 1 AMPULE OF IPRATROPIUM (ATROVENT) Tizanidine HCl 4 Mg Tablet 4 Mg PO Q8H PRN Clonazepam 0.5 Mg Tablet 0.25-0.5 Mg PO HS TAKES 1/2 TO 1 (0.5MG) TABLET Lisinopril 20 Mg Tablet 20 Mg PO DAILY Tylenol Extra Strength (Acetaminophen) 500 Mg Tablet 1,500-2,000 Mg PO BID PRN TAKES 3 TO 4 (500MG) TABLETS Calcium 500 + D Tablet (Calcium Carbonate/Vitamin D3) 1 Each Tablet 1 Tab PO BID Montelukast Sodium 10 Mg Tablet 10 Mg PO DAILY Atorvastatin Calcium 10 Mg Tablet 10 Mg PO DAILY Meloxicam 15 Mg Tablet 15 Mg PO DAILY Ondansetron HCl 4 Mg Tablet 4 Mg PO TID PRN Symbicort 160-4.5 Mcg Inhaler (Budesonide/Formoterol Fumarate) 10.2 Gm Hfa.aer.ad 2 Puff INH BID Venlafaxine HCl ER (Venlafaxine HCl) 150 Mg Cap.er.24h 300 Mg PO DAILY TAKES 2 (150MG) CAPSULES Omeprazole 40 Mg Capsule.dr 40 Mg PO DAILY Alendronate Sodium 70 Mg Tablet 70 Mg PO ESCALERA Combivent Respimat Inhal [place] (Albuterol/Ipratropium) 4 Gm Aero 1 Puff INH QID Instructions to patient/family Please see electronic discharge instructions given to patient. Diagnosis/Problems Diagnosis/Problems (1) Spinal cord compression Status: Acute (2) Osteoporosis Status: Chronic (3) Anxiety Status: Chronic (4) Respiratory insufficiency Status: Acute (5) Hypoxia Status: Acute (6) GERD (gastroesophageal reflux disease) Status: Chronic (7) COPD exacerbation Status: Acute (8) Pneumonia involving right lung Status: Acute (9) Compression fracture of T8 vertebra Status: Chronic (10) S/P kyphoplasty Status: Chronic (11) Smoker Status: Chronic Clinical Quality Measures DVT/VTE Risk/Contraindication: Risk Factor Score Per Nursin RFS Level Per Nursing on Admit: 4+=Very High ALEYDA MONROY DO Dec 21, 2018 11:39
--- NOTE | 2018-12-22 15:54 | Therapy Team Discharge Summary ---
Therapy Discharge Summary Discharge Recommendations Date of Discharge Dec 21, 2018 at 11:00 Therapy D/C Recommendations: Home w/ Family Support, Occupational Therapy Home Care Physical Therapy This patient was seen on ARU post acute hospital stay due to a compression fx at T 8 and post kyphoplasty. Upon initial evaluation, she required mod assist with transfers and was only able to ambulate 8 ft with assist. Treatment consisted of functional strengthening and mobility training that progressed her mod indep transfers and SBA with gait for 150 ft with FWW. She did make progress towards goals and is to discharge home with her . Occupational Therapy Decreased UE Strength, Impaired Funct Balance, Impaired Self-Care Skills PT [employer] [facility] Goals Senior Care Goals PT Senior Care Goals Time Frame: Jan 02, 2019 Transfers (B,C,W/C) (FIM): 5 (met) Roll Left to Right (QC): 6 Sit to Lying (QC): 6 Lying-Sitting on Side/Bed(QC): 6 Sit to Stand (QC): 4 Chair/Nzd-kc-Xkanv Xfer(QC): 4 Car Transfer (QC): 4 Gait (FIM): 5 (met) Distance: 150' Walk 10 feet (QC): 4 Walk 10ft-Uneven Surface(QC): 4 Walk 50ft with 2 Turns (QC): 4 Walk 150 ft (QC): 4 Gait Level of Assist: 5 Gait Assistive Device: FWW Stairs (FIM): 2 # of Steps: 4 1 Step (curb) (QC): 4 4 Steps (QC): 4 Stairs Level Of Assist: 4 goals met to a satisfactory level. OT [employer] Be[employer]er Goals [employer] [facility]er Goals Time Frame: Jan 09, 2019 Eating (FIM): 6 (met-12/19/18) Eating (QC): 6 (met-12/19/18) Oral Hygiene (QC): 6 (met-12/19/18) Grooming(FIM): 6 (met-12/19/18) Bathing(FIM): 5 (met-12/19/18) Shower/Bathe Self (QC): 5 (met-12/19/18) Upper Body Dressing(FIM): 6 (met-12/19/18) Upper Body Dressing (QC): 6 (met-12/19/18) Lower Body Dressing(FIM): 5 (met-12/19/18) Lower Body Dressing (QC): 5 (met-12/19/18) On/Off Footwear (QC): 5 (met-12/19/18) Toileting(FIM): 5 (met-12/19/18) Toileting Hygiene (QC): 5 (met-12/19/18) Toilet/Commode Transfer(FIM): 6 (met-12/19/18) Toilet/Commode Transfer (QC): 6 (met-12/19/18) Shower Transfer(FIM): 5 (met-12/19/18) Additional Goals: 1-Demonstrate ADL Tasks, 2-Verbalize Understanding, 3- ImproveStrength/Re 1=Demonstrate adherence to instructed precautions during ADL tasks. 2=Patient will verbalize/demonstrate understanding of assistive devices/modifications for ADL. 3=Patient will improve strength/tolerance for activity to enable patient to perform ADL's. KAROLYN COLLINS PT Dec 22, 2018 15:54
--- NOTE | 2018-12-22 21:40 | NUR ---
[facility] had called earlier today asking for clarification of the discharge Prednisone order, Notified Dr. Prabhakar, & rec'd orders. Notified [facility] of Dr. Prabhakar's orders for Prednisone 20 mg daily x 2 days.
--- NOTE | 2018-12-23 09:50 | Therapy Team Discharge Summary ---
Therapy Discharge Summary Discharge Recommendations Date of Discharge Dec 21, 2018 at 11:00 Therapy D/C Recommendations: Home w/ Family Support, Occupational Therapy Home Care Occupational Therapy Pt admitted to ARU following back surgery. On admission pt required mod assist with toilet transfer and bathing, total assist for LE dressing, and max assist for toileting. Skilled OT intervention focused on ADL training, transfers, strengthening, mobility, and safety. Pt made good progress with therapy and by discharge is completing basic ADLs and transfers with modified independence. Pt met all OT LTG. Pt discharged home. D/c ARU OT. 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 Goals PT Half-Way Goals Time Frame: Jan 02, 2019 Transfers (B,C,W/C) (FIM): 5 (met) Roll Left to Right (QC): 6 Sit to Lying (QC): 6 Lying-Sitting on Side/Bed(QC): 6 Sit to Stand (QC): 4 Chair/Qmb-xm-Fjjii Xfer(QC): 4 Car Transfer (QC): 4 Gait (FIM): 5 (met) Distance: 150' Walk 10 feet (QC): 4 Walk 10ft-Uneven Surface(QC): 4 Walk 50ft with 2 Turns (QC): 4 Walk 150 ft (QC): 4 Gait Level of Assist: 5 Gait Assistive Device: FWW Stairs (FIM): 2 # of Steps: 4 1 Step (curb) (QC): 4 4 Steps (QC): 4 Stairs Level Of Assist: 4 OT Half-Way Goals [employer] Deputy 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 Goals Time Frame: Jan 09, 2019 Eating (FIM): 6 (met-12/19/18) Eating (QC): 6 (met-12/19/18) Oral Hygiene (QC): 6 (met-12/19/18) Grooming(FIM): 6 (met-12/19/18) Bathing(FIM): 5 (met-12/19/18) Shower/Bathe Self (QC): 5 (met-12/19/18) Upper Body Dressing(FIM): 6 (met-12/19/18) Upper Body Dressing (QC): 6 (met-12/19/18) Lower Body Dressing(FIM): 5 (met-12/19/18) Lower Body Dressing (QC): 5 (met-12/19/18) On/Off Footwear (QC): 5 (met-12/19/18) Toileting(FIM): 5 (met-12/19/18) Toileting Hygiene (QC): 5 (met-12/19/18) Toilet/Commode Transfer(FIM): 6 (met-12/19/18) Toilet/Commode Transfer (QC): 6 (met-12/19/18) Shower Transfer(FIM): 5 (met-12/19/18) Additional Goals: 1-Demonstrate ADL Tasks, 2-Verbalize Understanding, 3- ImproveStrength/Re 1=Demonstrate adherence to instructed precautions during ADL tasks. 2=Patient will verbalize/demonstrate understanding of assistive devices/modifications for ADL. 3=Patient will improve strength/tolerance for activity to enable patient to perform ADL's. DEBRA TORRES OT Dec 23, 2018 09:50
== END 2018-12-21 11:00 | disposition home or self-care (01) | DRG 559 ==
LOC: UNDOADMIN 11:49
PROVIDERS: ADMIT Internal Medicine; ATTEND Internal Medicine
DX: Z47.89 Encounter for other orthopedic aftercare (principal); G83.89 Other specified paralytic syndromes; J18.1 Lobar pneumonia, unspecified organism; K59.09 Other constipation; F32.9 Major depressive disorder, single episode, unspecified; F41.9 Anxiety disorder, unspecified; J43.9 Emphysema, unspecified; I10 Essential (primary) hypertension; F17.200 Nicotine dependence, unspecified, uncomplicated; G62.9 Polyneuropathy, unspecified; K21.9 Gastro-esophageal reflux disease without esophagitis; M81.0 Age-related osteoporosis without current pathological fracture; R32 Unspecified urinary incontinence
CPT/HCPCS: 36415; 74018; 80053; 83540; 85025; 94640; 94760